=== PATIENT | female | born 1965 | race Two or more races ===

== ENCOUNTER 2019-12-17 17:26 | Outpatient (REF) | payer OTHER, SELFPAY ==
--- NOTE | 2019-12-17 17:29 | MM_ITS ---
EXAMINATION: MM SCREENING DIGITAL BREAST TOMOSYNTHESIS, BILATERAL CLINICAL INFORMATION: Screening. Asymptomatic. The lifetime risk of breast cancer based on the Tyrer-Cuzick Model is 7%. COMPARISON: Mammography: 06/23/2018, 03/28/2017 TECHNIQUE: Digital breast tomosynthesis is performed in both the craniocaudal and mediolateral oblique views along with computer-aided detection (CAD). Synthesized 2D images are generated from the tomosynthesis. FINDINGS: There are scattered areas of fibroglandular density (ACR BI-RADS breast composition Category b). There are no significant masses, abnormal calcifications, or other abnormalities. Parenchymal pattern is similar to prior studies. Skin contours are smooth. MM/MM tomosynthesis screening BI IMPRESSION: No mammographic evidence of malignancy. ASSESSMENT: BI-RADS 1: Negative RECOMMENDATION: Routine annual mammography screening. This patient's information was entered into a reminder system with a target due date for their next mammogram.
== END 2019-12-17 17:27 | disposition home or self-care (01) ==
LOC: HO.MAMMO 17:26
PROVIDERS: Visit Provider Pediatrics
DX: Z12.31 Encounter for screening mammogram for malignant neoplasm of breast (principal)
CPT/HCPCS: 77063; 77067

== ENCOUNTER 2020-03-08 16:04 | Outpatient (REF) | payer OTHER, SELFPAY | END 2020-03-08 16:05 | disposition home or self-care (01) | LOC: HO.LAB 16:04 | PROVIDERS: PCP Student in an Organized Health Care Education/Training Program; Visit Provider Internal Medicine | DX: Z20.822 Contact with and (suspected) exposure to COVID-19 (principal) | CPT/HCPCS: 36415; C9803; U0003 ==

== ENCOUNTER 2021-01-31 11:25 | Outpatient (REF) | payer OTHER, SELFPAY | END 2021-01-31 11:26 | disposition home or self-care (01) | LOC: HO.LAB 11:25 | PROVIDERS: PCP Pediatrics; Visit Provider Internal Medicine | DX: Z20.822 Contact with and (suspected) exposure to COVID-19 (principal) | CPT/HCPCS: C9803; U0003; U0005 ==

== ENCOUNTER 2021-03-07 16:07 | Outpatient (REF) | payer OTHER, SELFPAY ==
--- NOTE | ~2021-03-07 | MM_ITS ---
EXAMINATION: MM SCREENING DIGITAL BREAST TOMOSYNTHESIS, BILATERAL CLINICAL INFORMATION: Screening. Asymptomatic. The lifetime risk of breast cancer based on the Tyrer-Cuzick Model is 7%. COMPARISON: Mammography: 12/17/2019, 06/23/2018, 03/28/2017 TECHNIQUE: Digital breast tomosynthesis is performed in both the craniocaudal and mediolateral oblique views along with computer-aided detection (CAD). Synthesized 2D images are generated from the tomosynthesis. Additional bilateral MLO views are provided. FINDINGS: There are scattered areas of fibroglandular density (ACR BI-RADS breast composition Category b). There are no significant masses, abnormal calcifications, or other abnormalities. Parenchymal pattern is similar to prior studies. There is no developing density or architectural abnormality. The axilla and skin contours are unremarkable. No significant changes. MM/MM tomosynthesis screening BI IMPRESSION: No mammographic evidence of malignancy. ASSESSMENT: BI-RADS 1: Negative RECOMMENDATION: Routine annual mammography screening. This patient's information was entered into a reminder system with a target due date for their next mammogram.
== END 2021-03-07 16:08 | disposition home or self-care (01) ==
LOC: HO.MAMMO 16:07
PROVIDERS: Visit Provider Student in an Organized Health Care Education/Training Program
DX: Z12.31 Encounter for screening mammogram for malignant neoplasm of breast (principal)
CPT/HCPCS: 77063; 77067

== ENCOUNTER 2021-04-12 13:55 | Outpatient (REF) | payer OTHER, SELFPAY ==
--- NOTE | ~2021-04-12 | US_ITS ---
EXAMINATION: US PELVIS CLINICAL INFORMATION: Postmenopausal bleeding. COMPARISON: 06/12/2014 pelvic ultrasound TECHNIQUE: Ultrasound of the pelvis is performed using both transabdominal and transvaginal transducers along with Doppler. Transvaginal imaging is performed due to inadequate visualization transabdominally. FINDINGS: Uterus: The uterus is anteverted and measures 8.7 x 2.8 x 4.5 cm. Nabothian cysts are present in the cervix. The double wall endometrial thickness is 0.5 mm. The uterus is smooth in contour and has normal myometrial echogenicity. There are several small subserosal and intramural uterine myomas, a 1.2 cm subserosal myoma in the left uterus, a 1.6 cm subserosal myoma in the mid posterior uterus, a 1.6 cm subserosal myoma in the anterior right body uterus and a 1.4 cm intramural myoma in the right body of the uterus which previously measured 1.7 cm. Adnexa: Both ovaries are visualized and are unremarkable in appearance. There is no pelvic ascites or fluid collection. Right ovary measures 2.2 x 1.3 x 1.8 cm. No adnexal mass. Left ovary measures 1.7 x 1.2 x 1.2 cm. No adnexal mass. US/US pelvic and transvaginal IMPRESSION: Endometrium measures 0.5 cm in thickness. Several small subserosal and intramural uterine myomas measuring up to 1.7 cm.
== END 2021-04-12 13:56 | disposition home or self-care (01) ==
LOC: HO.US 13:55
PROVIDERS: PCP Student in an Organized Health Care Education/Training Program; Visit Provider Student in an Organized Health Care Education/Training Program
DX: N95.0 Postmenopausal bleeding (principal)
CPT/HCPCS: 76830; 76856

== ENCOUNTER 2021-05-18 15:25 | Outpatient (REF) | payer OTHER, SELFPAY ==
[2021-05-20 17:17] LABS: HPV mRNA E6/E7 rflx Not Detected (Not Detected)
== END 2021-05-18 15:26 | disposition home or self-care (01) ==
LOC: HO.LAB 15:25
PROVIDERS: Visit Provider Obstetrics & Gynecology
DX: N95.0 Postmenopausal bleeding (principal); D21.9 Benign neoplasm of connective and other soft tissue, unspecified; Z11.51 Encounter for screening for human papillomavirus (HPV)
CPT/HCPCS: 87624; 88142

== ENCOUNTER 2022-01-29 12:34 | Emergency (ER) | payer OTHER, SELFPAY ==
[2022-01-29 14:23] VITALS: BP 153/88; PULSE 85; RESP 16; TEMP 36.6; O2SAT 99; BMI 44.2
--- NOTE | 2022-01-29 14:25 | ED.GENADULT ---
HPI - General Adult General Chief complaint: General Medical <Melissa Stevenson MD - Last Filed: 01/29/22 14:27> Stated complaint: pain all over body <Melissa Stevenson MD - Last Filed: 01/29/22 14:27> Time Seen by Provider: 01/29/22 16:24 <Melissa Stevenson MD - Last Filed: 01/29/22 14:27> Source: patient <ASPEN Fernandes - Last Filed: 01/30/22 01:08> Mode of arrival: ambulatory <ASPEN Fernandes - Last Filed: 01/30/22 01:08> History of Present Illness HPI narrative: 56-year-old female with no significant past medical history presenting to the ED complaining of diffuse joint/body pain x1.5 weeks. Reports pain moves around, denies known injury/trauma or fall. Reports joints intermittently inflamed. Denies fever, chills, erythema, CP/SOB, abdominal pain, nausea/vomiting, weakness <ASPEN Fernandes - Last Filed: 01/30/22 01:08> Onset (ago): week(s) <ASPEN Fernandes - Last Filed: 01/30/22 01:08> Related Data Home medications: Previous Rx's Medication Instructions Recorded acetaminophen 500 mg tablet 500 mg PO Q6H PRN fever or pain 01/29/22 (Tylenol Extra Strength) #14 tabs ketorolac 10 mg tablet 10 mg PO TID PRN pain 5 days #15 01/29/22 tabs lidocaine 5 % topical patch 1 patch topical DAILY PRN pain #30 01/29/22 (Lidoderm) ea <Melissa Stevenson MD - Last Filed: 01/29/22 14:27> Allergies/adverse reactions: Allergies Allergy/AdvReac Type Severity Reaction Status Date / Time No Known Allergies Allergy Verified 05/18/21 15:44 [No Known Allergies*] none Allergy Unknown unk Uncoded 05/18/21 15:44 <Melissa Stevenson MD - Last Filed: 01/29/22 14:27> Review of Systems Review of Systems: Constitutional: No Fever, No Chills, No Fatigue, No Malaise ENT/Mouth: No Ear Pain, No Nasal Congestion, No sore throat, No Rhinorrhea, No Swallowing Difficulty Eyes: No Eye Pain, No Swelling, No Vision Changes Cardiovascular: No Chest Pain, No SOB, No Palpitations Respiratory: No Cough, No Sputum, No Dyspnea Gastrointestinal: No Nausea, No Vomiting, No Diarrhea, No Constipation, No Abdominal pain Genitourinary: No irregular bleeding, No Dysuria, No Urinary Frequency, No Hematuria Musculoskeletal: + joint pain, + Myalgias, No Joint Swelling Skin: No Skin Lesions, No rash Neuro: No Weakness, No Numbness, No Dizziness, No Headache <ASPEN Fernandes - Last Filed: 01/30/22 01:08> Yes all other systems are reviewed and are negative <ASPEN Fernandes - Last Filed: 01/30/22 01:08> Constitutional: Constitutional: Reports as per HPI <ASPEN Fernandes - Last Filed: 01/30/22 01:08> [facility] Past Medical History Attestation statement: The following information was validated with the patient. <ASPEN Fernandes - Last Filed: 01/30/22 01:08> Surgical History: Surgical History History of <Melissa Stevenson MD - Last Filed: 01/29/22 14:27> Family History Family History: Family History Maternal Aunt Breast CA <Melissa Stevenson MD - Last Filed: 01/29/22 14:27> Social History Social History: Social History Patient Tobacco Use Status: Never used Tobacco Advance Directives: No Advance Directives Information Provided: No <Melissa Stevenson MD - Last Filed: 01/29/22 14:27> Physical Exam ED Vital Signs: Vital Signs - 24 hr 01/29/22 14:23 Temperature 97.8 F Pulse Rate 85 Respiratory Rate 16 Blood Pressure 153/88 H Pulse Oximetry 99 Oxygen Delivery Method Room Air BMI result Body Mass Index 44.2 <Melissa Stevenson MD - Last Filed: 01/29/22 14:27> Vital Signs - 24 hr 01/29/22 14:23 Temperature 97.8 F Pulse Rate 85 Respiratory Rate 16 Blood Pressure 153/88 H Pulse Oximetry 99 Oxygen Delivery Method Room Air BMI result Body Mass Index 44.2 <ASPEN Fernandes - Last Filed: 01/30/22 01:08> Const General: cooperative, healthy appearing, comfortable, no acute distress, alert and awake <ASPEN Fernandes Last Filed: 01/30/22 01:08> Orientation/consciousness: patient oriented x3 <ASPEN Fernandes - Last Filed: 01/30/22 01:08> Limitations: no limitations <ASPEN Fernandes - Last Filed: 01/30/22 01:08> HENMT Head: Yes normal to inspection and Yes atraumatic <ASPEN Fernandes - Last Filed: 01/30/22 01:08> Ears: hearing grossly normal bilaterally <ASPEN Fernandes - Last Filed: 01/30/22 01:08> General nose exam: Normal external nose present <ASPEN Fernandes - Last Filed: 01/30/22 01:08> Face and sinus: Yes normal facial exam <ASPEN Fernandes - Last Filed: 01/30/22 01:08> Eyes General: appearance normal, both eyes and all related structures <ASPEN Fernandes - Last Filed: 01/30/22 01:08> EOM: EOMs intact bilaterally <ASPEN Fernandes - Last Filed: 01/30/22 01:08> Neck Neck: Yes normal visual inspection, Yes no meningeal signs and Yes supple <ASPEN Fernandes - Last Filed: 01/30/22 01:08> Resp Effort & Inspection: normal respiratory effort and no respiratory distress <ASPEN Fernandes - Last Filed: 01/30/22 01:08> Auscultation: clear to auscultation bilaterally, no crackles, no rales, no rhonchi and no wheezes <ASPEN Fernandes - Last Filed: 01/30/22 01:08> Cardio Rate: regular rate <ASPEN Fernandes - Last Filed: 01/30/22 01:08> Heart sounds: S1 normal heart sound present and S2 normal heart sound present <ASPEN Fernandes - Last Filed: 01/30/22 01:08> Skin Rashes: no rashes <ASPEN Fernandes Last Filed: 01/30/22 01:08> Wounds: no wounds <ASPEN Fernandes - Last Filed: 01/30/22 01:08> Neuro General: patient oriented x3, gait normal, tone normal, moves all extremities, no meningeal signs and no focal motor deficits <ASPEN Fernandes - Last Filed: 01/30/22 01:08> Gait exam (Neuro): Normal gait present <ASPEN Fernandes Last Filed: 01/30/22 01:08> Extrem Other: +diffuse joint ttp, no appreciable deformity/erythema. No warmth. Neurovascularly intact distally. ROM intact <ASPEN Fernandes - Last Filed: 01/30/22 01:08> General: Yes normal to inspection and Yes capillary refill normal <ASPEN Fernandes Last Filed: 01/30/22 01:08> Course Course Course Narrative: 56F p/w multiple joint pains for several days without fevers, chills or GI/ symptoms. No improvement with OTC analgesics. VS reviewed GEN: NAD PULM: CTAB, SpO2 CVS: RRR, no murmurs Labs, SARS <Melissa Stevenson MD - Last Filed: 01/29/22 14:27> 56F p/w multiple joint pains for several days without fevers, chills or GI/ symptoms. No improvement with OTC analgesics. VS reviewed GEN: NAD PULM: CTAB, SpO2 CVS: RRR, no murmurs Labs, SARS -183--no leukocytosis. ESR/CRP minimally elevated. COVID-19/influenza negative BARBI titer and Lyme titer currently pending. Will discharge patient home with close PCP/rheumatology follow-up Results discussed with patient including worrisome signs and symptoms and strict return precautions, and when to return to the emergency department. They verbalized understanding and feel safe for discharge at this time. <ASPEN Fernandes Last Filed: 01/30/22 01:08> Medications Administered Discontinued Medications Generic Name Dose Route Start Last Admin Trade Name Freq PRN Reason Stop Dose Admin Ketorolac Tromethamine 30 mg 01/29/22 16:30 01/29/22 19:42 Ketorolac Tromethamine 30 Mg/Ml Vial IM 01/29/22 16:31 30 mg ONCE ONE Administration <Melissa Stevenson MD - Last Filed: 01/29/22 14:27> Medications Administered Discontinued Medications Generic Name Dose Route Start Last Admin Trade Name Arabella PRN Reason Stop Dose Admin Ketorolac Tromethamine 30 mg 01/29/22 16:30 01/29/22 19:42 Ketorolac Tromethamine 30 Mg/Ml Vial IM 01/29/22 16:31 30 mg ONCE ONE Administration <ASPEN Fernandes - Last Filed: 01/30/22 01:08> Medical Decision Making Medical Decision Making MDM Narrative: 56-year-old female with no significant past medical history presenting to the ED complaining of diffuse joint/body pain x1.5 weeks. On exam vital signs stable, NAD, nontoxic appearing, physical exam as above with diffuse joint tenderness noted, no appreciable deformity or infection. Concern for viral illness vs arthritis vs rheumatologic etiology including lupus vs ?Tick borne illness. Low suspicion for septic joint/arthritis, no evidence of cellulitis Plan: Labs, ESR/CRP, Lyme titer, BARBI titer <ASPEN Fernandes - Last Filed: 01/30/22 01:08> Differential Diagnoses: Differential diagnosis (as above) Differential Diagnosis: The differential diagnosis associated with the patient?s presentation includes: <ASPEN Fernandes - Last Filed: 01/30/22 01:08> Independent historian (e.g., spouse, EMS, friend): Independent historian (e.g., spouse, EMS, friend) <ASPEN Fernandes - Last Filed: 01/30/22 01:08> Non-ED record review: Review of External (Non-ED) Record External record reviewed:: Office record and Prior outpatient labs <ASPEN Fernandes - Last Filed: 01/30/22 01:08> Tests considered but not performed: Tests Considered But Not Performed The following testing was considered but ultimately not selected after discussion with patient/family. <ASPEN Fernandes Last Filed: 01/30/22 01:08> Prescription medication was considered but ultimately not given after discussion with patient/family. (e.g., pain medication, antiviral, antibiotic): Prescriptions considered but not given <ASPEN Fernandes - Last Filed: 01/30/22 01:08> Chronic conditions affecting care (e.g., diabetes, HTN): Chronic conditions affecting care (e.g., diabetes, HTN) <ASPEN Fernandes - Last Filed: 01/30/22 01:08> Care significantly affected by Social Determinants of Health (e.g., housing and economic circumstances, unemployment): Care affected by Social Determinants of Health <ASPEN Fernandes - Last Filed: 01/30/22 01:08> Discharge Plan Discharge Clinical Impression: Myalgia <Melissa Stevenson MD - Last Filed: 01/29/22 14:27> Patient Disposition: Home, Self-Care <Melissa Stevenson MD - Last Filed: 01/29/22 14:27> Instructions: Musculoskeletal Pain (ED) <Melissa Stevenson MD - Last Filed: 01/29/22 14:27> Additional Instructions: Your blood work was reassuring today. You tested negative for COVID-19 and the flu and RSV. We tested you for rheumatologic studies and Lyme disease these are currently pending, we will call you with positive results only. Please have close follow-up with her primary care doctor and rheumatology. Toradol as an anti-inflammatory/pain medication, take with food. Do not take both Toradol and Motrin/ibuprofen at home they are similar medications In addition take Tylenol. If symptoms persist or worsen, you fever, areas look infected return to the ED <Melissa Stevenson MD - Last Filed: 01/29/22 14:27> Prescriptions: New acetaminophen [Tylenol Extra Strength] 500 mg tablet 500 mg PO Q6H PRN (Reason: fever or pain) Qty: 14 0RF ketorolac 10 mg tablet 10 mg PO TID PRN (Reason: pain) 5 Days Qty: 15 0RF lidocaine [Lidoderm] 5 % adhesive patch,medicated 1 patch topical DAILY MDD remove after 12 hours PRN (Reason: pain) Qty: 30 0RF Rx Instructions: leave on most painful area for up to 12 hrs <Melissa Stevenson MD - Last Filed: 01/29/22 14:27> Referrals: [facility] [place] Rheumatology Service [Provider Group] Lissette Marte MD [Primary Care Provider] - <Melissa Stevenson MD - Last Filed: 01/29/22 14:27> Interventions: ED Discharge Assessment Last Done: 01/29/22 19:46 <Melissa Stevenson MD - Last Filed: 01/29/22 14:27> Discharge Date/Time: 01/29/22 19:46 <Melissa Stevenson MD - Last Filed: 01/29/22 14:27>
[2022-01-29 17:31] LABS: MANUAL DIFF FLAG NO
[2022-01-29 17:52] LABS: Alanine Aminotransferase 15 U/L (0-31); Albumin Level 3.6 g/dL (3.5-5.0); Alkaline Phosphatase 100 U/L (39-117); Anion Gap 11 (12-20); Aspartate Amino Transferase 14 U/L (5-31); Bilirubin Total 0.3 mg/dL (0.0-1.0); Blood Urea Nitrogen 11 mg/dL (9-16); C Reactive Protein 0.68 mg/dL (< or = 0.50); Calcium 9.2 mg/dL (8.4-10.2); Carbon Dioxide 28 mmol/L (22-29); Chloride 108 mmol/L (96-108); Creatinine Clr Calc Pharmacy 104.1; Estimated Glomerular Filt Rate > 60; Glucose Random 102 mg/dL (60-115); Potassium 4.2 mmol/L (3.3-5.1); Sodium 143 mmol/L (135-145); Total Protein 6.6 g/dL (6.5-8.0)
[2022-01-29 17:57] LABS: Basophils Percent Auto 0.4 % (0-2); Eosinophils Absolute Auto 0.2 X10*3/uL (0.0-0.4); Eosinophils Percent Auto 2.6 % (0-4); Hematocrit 39.7 % (37.0-47.0); Hemoglobin 12.2 g/dl (12.0-16.0); Imm Gran Abs Auto 0.04 X10*3/uL (0.00-0.03); Imm Gran Pct Auto 0.5 % (0.0-0.4); Lymphocytes Absolute Auto 2.2 X10*3/uL (1.2-4.9); Lymphocytes Percent Auto 27.2 % (20-40); Mean Corpuscular HGB Conc 30.7 g/dl (31.0-35.0); Mean Corpuscular Hemoglobin 21.8 pg (27.0-33.0); Mean Platelet Volume 9.6 fL (9.4-12.3); Monocytes Absolute Auto 0.4 X10*3/uL (0.1-1.2); Monocytes Percent Auto 4.9 % (2-11); Neutrophils Absolute Auto 5.1 x10*3/uL (2.0-8.3); Neutrophils Percent Auto 64.4 % (45-73); Platelet Count 348 X10*3/uL (160-400); Red Blood Count 5.59 X10*6/uL (4.20-5.50); Red Cell Distribution Width 15.6 % (11.0-16.0)
[2022-01-29 18:13] LABS: Erythrocyte Sedimentation Rate 23 MM/HR (0-20)
[2022-01-29 18:19] LABS: Influenza A PCR NEGATIVE (Negative); Influenza B PCR NEGATIVE (Negative); Resp Syncy Virus RNA Qual PCR NEGATIVE (Negative); SARS COV2 PCR INHOUSE NEGATIVE (Negative)
[2022-01-29] MEDS: Ketorolac Tromethamine 30 MG/ML VIAL IM (19:42)
[2022-01-31 09:43] LABS: Lyme Abs Screen <0.90 index
[2022-02-01 15:43] LABS: Anti Nuclear Antibody Screen NEGATIVE (NEGATIVE)
== END 2022-01-29 19:46 | disposition home or self-care (01) ==
PROVIDERS: Physician Assistant; Student in an Organized Health Care Education/Training Program; Emergency Provider Emergency Medicine; PCP Student in an Organized Health Care Education/Training Program
DX: M79.10 Myalgia, unspecified site (principal); Z20.822 Contact with and (suspected) exposure to COVID-19; Z79.899 Other long term (current) drug therapy
CPT/HCPCS: 0241U; 36415; 80053; 85025; 85652; 86038; 86039; 86140; 86617; 86618; 96372; 99283; 99284; J1885

== ENCOUNTER 2022-02-23 13:54 | Outpatient (REF) | payer OTHER, SELFPAY ==
--- NOTE | ~2022-02-23 | XR_ITS ---
EXAMINATION: XR HAND/WRIST, RIGHT XR HAND/WRIST, LEFT CLINICAL INFORMATION: Osteoarthritis. COMPARISON: None TECHNIQUE: PA, lateral, oblique, and scaphoid views of the right and left hands and wrists. FINDINGS: RIGHT HAND AND WRIST: No fracture or dislocation. Normal carpal alignment. No significant joint space narrowing or marginal osteophytes. No osseous erosion. No periarticular osteopenia. No abnormal soft tissue calcification. LEFT HAND AND WRIST: No fracture or dislocation. Normal carpal alignment. No significant joint space narrowing or marginal osteophytes. No osseous erosion. No periarticular osteopenia. No abnormal soft tissue calcification. XR/XR hand wrist RT IMPRESSION: Unremarkable examination.
--- NOTE | ~2022-02-23 | XR_ITS ---
EXAMINATION: XR KNEE STANDING, BILATERAL XR KNEE, RIGHT XR KNEE, LEFT CLINICAL INFORMATION: Osteoarthritis. COMPARISON: Bilateral knee radiographs dated 03/01/2017 and 01/24/2017. TECHNIQUE: AP standing view of the bilateral knees as well as tunnel, lateral, and sunrise views of the right and left knee. FINDINGS: Right Knee: Mild medial compartment joint space narrowing. Lateral patellofemoral compartment joint space narrowing. Tiny tricompartmental marginal osteophytes. Findings are slightly progressed when compared to the prior radiograph. No acute fracture or dislocation. No concerning lytic or blastic osseous lesion. No abnormal soft tissue calcification. No significant joint effusion. Left knee: Mild lateral patellofemoral compartment joint space. Small patellofemoral and tiny medial compartment marginal osteophytes. No acute fracture or dislocation. No concerning lytic or blastic osseous lesion. No abnormal soft tissue calcification. No significant joint effusion. XR/XR knee standing BI IMPRESSION: RIGHT KNEE: Mild tricompartmental osteoarthritis, slightly progressed when compared to the prior radiographs. LEFT KNEE: Mild lateral and patellofemoral compartment osteoarthritis, slightly progressed when compared to the prior radiographs.
--- NOTE | ~2022-02-23 | XR_ITS ---
EXAMINATION: XR KNEE STANDING, BILATERAL XR KNEE, RIGHT XR KNEE, LEFT CLINICAL INFORMATION: Osteoarthritis. COMPARISON: Bilateral knee radiographs dated 03/01/2017 and 01/24/2017. TECHNIQUE: AP standing view of the bilateral knees as well as tunnel, lateral, and sunrise views of the right and left knee. FINDINGS: Right Knee: Mild medial compartment joint space narrowing. Lateral patellofemoral compartment joint space narrowing. Tiny tricompartmental marginal osteophytes. Findings are slightly progressed when compared to the prior radiograph. No acute fracture or dislocation. No concerning lytic or blastic osseous lesion. No abnormal soft tissue calcification. No significant joint effusion. Left knee: Mild lateral patellofemoral compartment joint space. Small patellofemoral and tiny medial compartment marginal osteophytes. No acute fracture or dislocation. No concerning lytic or blastic osseous lesion. No abnormal soft tissue calcification. No significant joint effusion. XR/XR knee RT 3V IMPRESSION: RIGHT KNEE: Mild tricompartmental osteoarthritis, slightly progressed when compared to the prior radiographs. LEFT KNEE: Mild lateral and patellofemoral compartment osteoarthritis, slightly progressed when compared to the prior radiographs.
--- NOTE | ~2022-02-23 | XR_ITS ---
EXAMINATION: XR HAND/WRIST, RIGHT XR HAND/WRIST, LEFT CLINICAL INFORMATION: Osteoarthritis. COMPARISON: None TECHNIQUE: PA, lateral, oblique, and scaphoid views of the right and left hands and wrists. FINDINGS: RIGHT HAND AND WRIST: No fracture or dislocation. Normal carpal alignment. No significant joint space narrowing or marginal osteophytes. No osseous erosion. No periarticular osteopenia. No abnormal soft tissue calcification. LEFT HAND AND WRIST: No fracture or dislocation. Normal carpal alignment. No significant joint space narrowing or marginal osteophytes. No osseous erosion. No periarticular osteopenia. No abnormal soft tissue calcification. XR/XR hand wrist LT IMPRESSION: Unremarkable examination.
--- NOTE | ~2022-02-23 | XR_ITS ---
EXAMINATION: XR KNEE STANDING, BILATERAL XR KNEE, RIGHT XR KNEE, LEFT CLINICAL INFORMATION: Osteoarthritis. COMPARISON: Bilateral knee radiographs dated 03/01/2017 and 01/24/2017. TECHNIQUE: AP standing view of the bilateral knees as well as tunnel, lateral, and sunrise views of the right and left knee. FINDINGS: Right Knee: Mild medial compartment joint space narrowing. Lateral patellofemoral compartment joint space narrowing. Tiny tricompartmental marginal osteophytes. Findings are slightly progressed when compared to the prior radiograph. No acute fracture or dislocation. No concerning lytic or blastic osseous lesion. No abnormal soft tissue calcification. No significant joint effusion. Left knee: Mild lateral patellofemoral compartment joint space. Small patellofemoral and tiny medial compartment marginal osteophytes. No acute fracture or dislocation. No concerning lytic or blastic osseous lesion. No abnormal soft tissue calcification. No significant joint effusion. XR/XR knee LT 3V IMPRESSION: RIGHT KNEE: Mild tricompartmental osteoarthritis, slightly progressed when compared to the prior radiographs. LEFT KNEE: Mild lateral and patellofemoral compartment osteoarthritis, slightly progressed when compared to the prior radiographs.
== END 2022-02-23 13:55 | disposition home or self-care (01) ==
LOC: HO.LAB 13:54
PROVIDERS: PCP Student in an Organized Health Care Education/Training Program; Visit Provider Student in an Organized Health Care Education/Training Program
DX: M17.0 Bilateral primary osteoarthritis of knee (principal); M25.431 Effusion, right wrist; M19.032 Primary osteoarthritis, left wrist; M19.031 Primary osteoarthritis, right wrist; M19.042 Primary osteoarthritis, left hand; M19.041 Primary osteoarthritis, right hand
CPT/HCPCS: 73110; 73130; 73562; 73565

== ENCOUNTER 2022-02-27 16:15 | Outpatient (REF) | payer OTHER, SELFPAY ==
[2022-02-27 16:46] LABS: MANUAL DIFF FLAG NO
[2022-02-27 17:01] LABS: Estimated Average Glucose 97 mg/dL
[2022-02-27 17:08] LABS: Basophils Percent Auto 0.5 % (0-2); Eosinophils Absolute Auto 0.1 X10*3/uL (0.0-0.4); Eosinophils Percent Auto 1.3 % (0-4); Hematocrit 40.1 % (37.0-47.0); Hemoglobin 12.6 g/dl (12.0-16.0); Imm Gran Abs Auto 0.08 X10*3/uL (0.00-0.03); Imm Gran Pct Auto 1.3 % (0.0-0.4); Lymphocytes Absolute Auto 2.1 X10*3/uL (1.2-4.9); Mean Corpuscular HGB Conc 31.4 g/dl (31.0-35.0); Mean Corpuscular Hemoglobin 22.3 pg (27.0-33.0); Mean Corpuscular Volume 71.1 fL (80.0-98.0); Mean Platelet Volume 9.8 fL (9.4-12.3); Monocytes Absolute Auto 0.3 X10*3/uL (0.1-1.2); Monocytes Percent Auto 4.8 % (2-11); Neutrophils Absolute Auto 3.5 x10*3/uL (2.0-8.3); Neutrophils Percent Auto 57.1 % (45-73); Platelet Count 355 X10*3/uL (160-400); Red Blood Count 5.64 X10*6/uL (4.20-5.50); White Blood Count 6.1 X10*3/uL (4.8-10.8)
[2022-02-27 17:13] LABS: Alanine Aminotransferase 14 U/L (0-31); Albumin Level 3.9 g/dL (3.5-5.0); Alkaline Phosphatase 102 U/L (39-117); Anion Gap 11 (12-20); Aspartate Amino Transferase 18 U/L (5-31); Bilirubin Total 0.3 mg/dL (0.0-1.0); Blood Urea Nitrogen 13 mg/dL (9-16); C Reactive Protein 0.26 mg/dL (< or = 0.50); Calcium 9.5 mg/dL (8.4-10.2); Carbon Dioxide 24 mmol/L (22-29); Chloride 109 mmol/L (96-108); Estimated Glomerular Filt Rate > 60; Glucose Random 85 mg/dL (60-115); Potassium 4.3 mmol/L (3.3-5.1); Rheumatoid Factor 46.6 IU/mL (<15.0); Sodium 140 mmol/L (135-145); Total Protein 7.1 g/dL (6.5-8.0); Uric Acid 4.1 mg/dL (2.4-5.7)
[2022-02-27 17:31] LABS: Erythrocyte Sedimentation Rate 16 MM/HR (0-20)
[2022-02-27 21:00] LABS: Appearance Urine Clear; Color Urine Yellow; Glucose Urine UA Negative (Negative); Leukocyte Esterase Urine Trace (Negative); Nitrite Urine Negative (Negative); Specific Gravity - Urine 1.015 (1.005-1.025); UMIC TRIGGER UA YES; Urine Blood Negative (Negative); Urine Ketones Negative (Negative); Urine Protein Negative (Neg-Trace)
[2022-02-27 21:03] LABS: Bacteria Urine Trace (None Seen); Hyaline Casts Urine 0-2 /LPF (0-2); RBC Urine 0-2 /HPF (0-2); WBC Urine 0-5 /HPF (0-5)
[2022-02-27 21:29] LABS: Creatinine Urine 51.95 mg/dL; Total Protein Urine Random < 7 mg/dL (<12)
[2022-02-28 04:31] LABS: HBS Num1 0.32 mIU/mL (0-7.99); HBc Num1 0.07 S/CO (0.00-0.79); HBsAGNum1 0.32 S/CO (0.00-0.99); HIV AB/AG Nonreactive (Nonreactive); HIV Num 1 0.05 S/CO (0.00-0.99); Hepatitis A Antibody IgM 0.15 Index (0-0.79); Hepatitis B Core Antibody Nonreactive (Nonreactive); Hepatitis B Surface Antigen Negative (Negative); ~Hepatitis A Antibody IgM Nonreactive (Nonreactive); ~Hepatitis B Surface Antibody NONREACTIVE (Nonreactive); ~Hepatitis C Antibody Nonreactive (Nonreactive)
[2022-03-01 19:48] LABS: Complement C3 140 mg/dL (83-193)
[2022-03-02 13:44] LABS: Anti DNA DS Antibody 2 IU/mL; Antibody to SS-A Antigen <1.0 NEG AI (<1.0 NEG); Antibody to SS-B Antigen <1.0 NEG AI (<1.0 NEG); Myeloperoxidase Antibody <1.0 AI; Proteinase 3 PR3 Antibodies <1.0 AI; SM/Ribonucleoprotein Ab <1.0 NEG AI (<1.0 NEG); Smith Protein <1.0 NEG AI (<1.0 NEG)
[2022-03-02 14:03] LABS: IgA 332 mg/dL (47-310); IgG 1549 mg/dL (600-1640); IgM 85 mg/dL (50-300)
[2022-03-02 15:58] LABS: Cyclic Citrullinated Peptide >250 UNITS
[2022-03-02 21:14] LABS: Prot Elec - Albumin 3.6 g/dL (3.8-4.8); Prot Elec - Alpha1 0.3 g/dL (0.2-0.3); Prot Elec - Alpha2 0.9 g/dL (0.5-0.9); Prot Elec - Beta 1 0.6 g/dL (0.4-0.6); Prot Elec - Beta 2 0.4 g/dL (0.2-0.5); Prot Elec - Gamma 1.3 g/dL (0.8-1.7); Prot Elec - Total Protein 7.2 g/dL (6.1-8.1)
[2022-03-03 19:30] LABS: Strep DNASE B Antibody 201 U/mL (<301)
[2022-03-05 05:38] LABS: Angiotensin Converting Enzyme 56 U/L (9-67)
[2022-03-05 06:49] LABS: TS Negative Control Passed; TS Panel A 0; TS Panel B 1; TS Positive Control Passed; TSpotTB Negative (Negative)
[2022-03-06 21:24] LABS: HLA B27 Negative (Negative)
== END 2022-02-27 16:16 | disposition home or self-care (01) ==
LOC: HO.LAB 16:15
PROVIDERS: PCP Student in an Organized Health Care Education/Training Program; Visit Provider Student in an Organized Health Care Education/Training Program
DX: Z11.59 Encounter for screening for other viral diseases (principal); Z11.7 Encounter for testing for latent tuberculosis infection; Z13.1 Encounter for screening for diabetes mellitus; Z11.4 Encounter for screening for human immunodeficiency virus [HIV]; M00.20 Other streptococcal arthritis, unspecified joint; N39.0 Urinary tract infection, site not specified; M79.10 Myalgia, unspecified site; M25.461 Effusion, right knee; M54.50 Low back pain, unspecified
CPT/HCPCS: 36415; 80053; 81001; 82164; 82550; 82784; 83036; 84156; 84165; 84550; 85025; 85652; 86021; 86140; 86160; 86200; 86215; 86225; 86235; 86334; 86431; 86481; 86704; 86706; 86709; 86803; 86812; 87086; 87340; 87389

== ENCOUNTER → 2022-04-05 14:29 | Outpatient (BNVA) | payer OTHER, SELFPAY | PROVIDERS: PCP Student in an Organized Health Care Education/Training Program; Visit Provider Student in an Organized Health Care Education/Training Program | DX: Z13.89 Encounter for screening for other disorder (principal) ==

== ENCOUNTER 2022-04-26 17:00 | Outpatient (REF) | payer OTHER, SELFPAY ==
[2022-04-26 18:42] LABS: MANUAL DIFF FLAG NO
[2022-04-26 18:46] LABS: Basophils Percent Auto 0.4 % (0-2); Eosinophils Absolute Auto 0.1 X10*3/uL (0.0-0.4); Eosinophils Percent Auto 0.7 % (0-4); Hematocrit 40.6 % (37.0-47.0); Hemoglobin 12.4 g/dl (12.0-16.0); Imm Gran Abs Auto 0.03 X10*3/uL (0.00-0.03); Imm Gran Pct Auto 0.4 % (0.0-0.4); Lymphocytes Absolute Auto 2.7 X10*3/uL (1.2-4.9); Lymphocytes Percent Auto 33.5 % (20-40); Mean Corpuscular HGB Conc 30.5 g/dl (31.0-35.0); Mean Corpuscular Hemoglobin 21.9 pg (27.0-33.0); Mean Corpuscular Volume 71.9 fL (80.0-98.0); Mean Platelet Volume 10.7 fL (9.4-12.3); Monocytes Absolute Auto 0.6 X10*3/uL (0.1-1.2); Monocytes Percent Auto 6.8 % (2-11); Neutrophils Absolute Auto 4.7 x10*3/uL (2.0-8.3); Neutrophils Percent Auto 58.2 % (45-73); Platelet Count 352 X10*3/uL (160-400); Red Blood Count 5.65 X10*6/uL (4.20-5.50); Red Cell Distribution Width 18.7 % (11.0-16.0); White Blood Count 8.1 X10*3/uL (4.8-10.8)
[2022-04-26 18:54] LABS: Alanine Aminotransferase 14 U/L (0-31); Alkaline Phosphatase 115 U/L (39-117); Anion Gap 15 (12-20); Aspartate Amino Transferase 18 U/L (5-31); Bilirubin Total 0.3 mg/dL (0.0-1.0); Blood Urea Nitrogen 13 mg/dL (9-16); C Reactive Protein 0.51 mg/dL (< or = 0.50); Calcium 9.3 mg/dL (8.4-10.2); Carbon Dioxide 26 mmol/L (22-29); Chloride 106 mmol/L (96-108); Estimated Glomerular Filt Rate > 60; Glucose Random 77 mg/dL (60-115); Potassium 4.3 mmol/L (3.3-5.1); Sodium 143 mmol/L (135-145); Total Protein 6.9 g/dL (6.5-8.0)
[2022-04-26 19:21] LABS: Erythrocyte Sedimentation Rate 23 MM/HR (0-20)
== END 2022-04-26 17:01 | disposition home or self-care (01) ==
LOC: HO.LAB 17:00
PROVIDERS: PCP Student in an Organized Health Care Education/Training Program; Visit Provider Student in an Organized Health Care Education/Training Program
DX: Z79.899 Other long term (current) drug therapy (principal)
CPT/HCPCS: 36415; 80053; 85025; 85652; 86140

== ENCOUNTER 2022-06-13 16:34 | Outpatient (REF) | payer OTHER, SELFPAY ==
[2022-06-13 17:29] LABS: Basophils Percent Auto 0.4 % (0-2); Imm Gran Abs Auto 0.03 X10*3/uL (0.00-0.03); Imm Gran Pct Auto 0.4 % (0.0-0.4); MANUAL DIFF FLAG SCAN; PLT CLUMP 1; SCAN SMEAR FLAG 1
[2022-06-13 17:31] LABS: Eosinophils Percent Auto 0.3 % (0-4); Hematocrit 38.8 % (37.0-47.0); Hemoglobin 12.2 g/dl (12.0-16.0); Lymphocytes Absolute Auto 2.8 X10*3/uL (1.2-4.9); Lymphocytes Percent Auto 35.1 % (20-40); Mean Corpuscular HGB Conc 31.4 g/dl (31.0-35.0); Mean Corpuscular Hemoglobin 22.7 pg (27.0-33.0); Mean Corpuscular Volume 72.3 fL (80.0-98.0); Mean Platelet Volume 10.2 fL (9.4-12.3); Monocytes Absolute Auto 0.4 X10*3/uL (0.1-1.2); Monocytes Percent Auto 4.8 % (2-11); Neutrophils Absolute Auto 4.7 x10*3/uL (2.0-8.3); Red Blood Count 5.37 X10*6/uL (4.20-5.50); Red Cell Distribution Width 17.5 % (11.0-16.0)
[2022-06-13 17:57] LABS: Erythrocyte Sedimentation Rate 12 MM/HR (0-20)
[2022-06-13 17:58] LABS: Platelet Count 243 X10*3/uL (160-400)
[2022-06-13 17:59] LABS: Alanine Aminotransferase 16 U/L (0-31); Albumin Level 3.9 g/dL (3.5-5.0); Alkaline Phosphatase 105 U/L (39-117); Anion Gap 13 (12-20); Aspartate Amino Transferase 16 U/L (5-31); Bilirubin Total 0.4 mg/dL (0.0-1.0); Blood Urea Nitrogen 13 mg/dL (9-16); C Reactive Protein 0.11 mg/dL (< or = 0.50); Calcium 9.3 mg/dL (8.4-10.2); Carbon Dioxide 25 mmol/L (22-29); Chloride 109 mmol/L (96-108); Estimated Glomerular Filt Rate > 60; Glucose Random 75 mg/dL (60-115); Sodium 143 mmol/L (135-145); Total Protein 6.4 g/dL (6.5-8.0)
[2022-06-13 18:34] LABS: SLIDE REVIEW VERIFIED
== END 2022-06-13 16:35 | disposition home or self-care (01) ==
LOC: HO.LAB 16:34
PROVIDERS: PCP Student in an Organized Health Care Education/Training Program; Visit Provider Student in an Organized Health Care Education/Training Program
DX: Z79.899 Other long term (current) drug therapy (principal)
CPT/HCPCS: 36415; 80053; 85025; 85652; 86140

== ENCOUNTER → 2022-06-22 14:49 | Outpatient (BNVA) | payer OTHER, SELFPAY | PROVIDERS: PCP Student in an Organized Health Care Education/Training Program; Visit Provider Student in an Organized Health Care Education/Training Program | DX: Z13.89 Encounter for screening for other disorder (principal) ==

== ENCOUNTER 2022-09-20 12:01 | Outpatient (REF) | payer OTHER, SELFPAY ==
[2022-09-20 12:42] LABS: MANUAL DIFF FLAG NO
[2022-09-20 13:30] LABS: Basophils Percent Auto 0.4 % (0-2); Eosinophils Absolute Auto 0.1 X10*3/uL (0.0-0.4); Eosinophils Percent Auto 0.7 % (0-4); Hematocrit 37.8 % (37.0-47.0); Hemoglobin 11.7 g/dl (12.0-16.0); Imm Gran Abs Auto 0.03 X10*3/uL (0.00-0.03); Imm Gran Pct Auto 0.4 % (0.0-0.4); Lymphocytes Percent Auto 27.9 % (20-40); Mean Corpuscular Hemoglobin 23.1 pg (27.0-33.0); Mean Corpuscular Volume 74.6 fL (80.0-98.0); Mean Platelet Volume 10.3 fL (9.4-12.3); Monocytes Absolute Auto 0.4 X10*3/uL (0.1-1.2); Neutrophils Absolute Auto 4.8 x10*3/uL (2.0-8.3); Neutrophils Percent Auto 65.6 % (45-73); Platelet Count 354 X10*3/uL (160-400); Red Blood Count 5.07 X10*6/uL (4.20-5.50); Red Cell Distribution Width 18.4 % (11.0-16.0); White Blood Count 7.3 X10*3/uL (4.8-10.8)
[2022-09-20 14:38] LABS: Alanine Aminotransferase 40 U/L (0-31); Albumin Level 3.9 g/dL (3.5-5.0); Alkaline Phosphatase 101 U/L (39-117); Anion Gap 16 (12-20); Aspartate Amino Transferase 30 U/L (5-31); Bilirubin Total 0.3 mg/dL (0.0-1.0); Blood Urea Nitrogen 9 mg/dL (9-16); C Reactive Protein 0.29 mg/dL (< or = 0.50); Calcium 9.4 mg/dL (8.4-10.2); Carbon Dioxide 20 mmol/L (22-29); Chloride 110 mmol/L (96-108); Estimated Glomerular Filt Rate > 60; Glucose Random 74 mg/dL (60-115); Sodium 142 mmol/L (135-145)
[2022-09-20 15:26] LABS: Erythrocyte Sedimentation Rate 14 MM/HR (0-20)
== END 2022-09-20 12:02 | disposition home or self-care (01) ==
LOC: HO.LAB 12:01
PROVIDERS: PCP Student in an Organized Health Care Education/Training Program; Visit Provider Student in an Organized Health Care Education/Training Program
DX: Z79.899 Other long term (current) drug therapy (principal)
CPT/HCPCS: 36415; 80053; 85025; 85652; 86140

== ENCOUNTER 2022-10-19 14:24 | Outpatient (AMB) | payer OTHER, SELFPAY ==
[2022-10-19 14:27] VITALS: BP 120/72; PULSE 98; TEMP 36.2; O2SAT 94; BMI 42.3
--- NOTE | 2022-10-19 14:27 | MHC.OFFVIS ---
Intake Vital Signs 10/19/22 14:27 Height 5 ft 3 in Weight 238 lb 15.697 oz BMI 42.3 BP 120/72 Blood Pressure Location Rt brachial Position Sitting Pulse 98 Pulse Source Pulse Oximeter Temp 97.1 F Temp Source Skin Pulse Oximetry (%) 94 Intake Visit Reasons: 4 mnts f/u for RA Intake Note: Pt seen today for RA follow up. 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 A methotrexate 8 tabs weekly folic acid daily. She states that she gets nausea and GI upset today she take methotrexate and the day after, she also gets fatigue that is significant the day after she takes methotrexate and the fatigue lingers for the rest of the week. She states that her joint pain is resolved. She was prescribed nystatin powder for fungal infection affecting her right groin a few weeks ago and it is improving Initial history: This is a 56-year-old female with a past medical history of morbid obesity presents for evaluation of multiple joint pain and swelling. The condition started 1 month ago with abrupt onset of right knee pain and swelling, the pain then shifts to another joint such as left shoulder, elbows, wrists, other knee. She would continue to have pain in the initial joint but the pain would be less severe and the severity would be in another joint. Today the most painful joints are the right knee , right right shoulder and right wrist. Pain is improved with Tylenol. Patient is unable to take NSAIDs due to history of esophagitis. Patient went to the ER and was prescribed lidocaine patches which did not help. She has a prescription for oxycodone which she previously takes due to painful menstrual periods. (? Adenomyosis) she currently takes the oxycodone for the joint pain which does take the edge off. In October patient had a dental infection, she received multiple courses of amoxicillin. She eventually had a root canal. Currently she does not have any dental symptoms. She denies any fevers, weight loss, skin rashes, Raynaud's. There is no history of DVT/PE. 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 Female Reproductive History Menstrual Age of Menarche: 12 Review of Systems Const Reports fatigue GI Reports dyspepsia and Reports nausea Musc Denies arthralgias and Denies joint swelling Skin/Breast Reports rash Endo Reports fatigue Physical Exam Vital Signs: Last Vital Signs Temp 97.1 F 10/19/22 14:27 Pulse 98 10/19/22 14:27 BP 120/72 10/19/22 14:27 Pulse Ox 94 10/19/22 14:27 BMI result Body Mass Index 42.3 Const General: cooperative, healthy appearing, comfortable and acute distress mild Nutritional Appearance: obese morbidly obese Orientation/consciousness: patient oriented x3 Limitations: no limitations HEENT Head: Yes normocephalic and Yes atraumatic Mouth: moist mucous membranes Resp Effort & Inspection: normal respiratory effort and able to speak in complete sentences Skin Other: Fungal infection right lower abdomen Neuro General: patient oriented x3 Extrem Other: No synovitis today Assessment & Plan Assessment & Plan (1) Rheumatoid arthritis: Comment: +RF+++CCP diagnosed 01/2022 Methotrexate started 03/2022 effective DC 10/17 due to transaminitis, fatigue, GI upset Code(s): M06.9 - Rheumatoid arthritis, unspecified Qualifiers: Rheumatoid arthritis location: multiple sites Rheumatoid factor presence: with rheumatoid factor Qualified Code(s): M05.79 - Rheumatoid arthritis with rheumatoid factor of multiple sites without organ or systems involvement Plan: This is a 57-year-old female with seropositive RA who presents for follow-up. Patient is in remission on methotrexate 20 mg weekly however she has been having fatigue, as well as nausea and GI upset with methotrexate. Labs showed transaminitis. Will DC methotrexate. Patient currently has a fungal infection in her right groin that is improving with Nystatin powder. We discussed switching to a TNF inhibitor such as Enbrel. Can switch to a TNF inhibitor if patient's rash is improving. Infectious screening hepatitis panel and T spot -ve 2021 Follow-up in 1 month.? Plan I spent 28 minutes reviewing patient's chart, evaluating patient, ordering diagnostic workup, counseling patient & her and documenting in the chart Coding Level of Care Code Est Pt Level 4 (24312) Diagnoses Rheumatoid arthritis M05.79 Rheumatoid arthritis location: multiple sites Rheumatoid factor presence: with rheumatoid factor
== END 2022-10-19 15:02 | disposition home or self-care (01) ==
PROVIDERS: PCP Student in an Organized Health Care Education/Training Program; Visit Provider Student in an Organized Health Care Education/Training Program
DX: M05.79 Rheumatoid arthritis with rheumatoid factor of multiple sites without organ or systems involvement (principal)
CPT/HCPCS: 99214

== ENCOUNTER → 2022-10-19 14:24 | Outpatient (BNVA) | payer OTHER, SELFPAY | PROVIDERS: PCP Student in an Organized Health Care Education/Training Program; Visit Provider Student in an Organized Health Care Education/Training Program ==

== ENCOUNTER 2022-11-21 16:14 | Outpatient (REF) | payer OTHER, SELFPAY ==
[2022-11-21 16:27] LABS: MANUAL DIFF FLAG NO
[2022-11-21 16:56] LABS: Basophils Percent Auto 0.3 % (0-2); Eosinophils Absolute Auto 0.1 X10*3/uL (0.0-0.4); Eosinophils Percent Auto 0.6 % (0-4); Hematocrit 39.3 % (37.0-47.0); Imm Gran Abs Auto 0.04 X10*3/uL (0.00-0.03); Imm Gran Pct Auto 0.4 % (0.0-0.4); Lymphocytes Absolute Auto 2.9 X10*3/uL (1.2-4.9); Lymphocytes Percent Auto 32.6 % (20-40); Mean Corpuscular HGB Conc 30.5 g/dl (31.0-35.0); Mean Corpuscular Hemoglobin 23.2 pg (27.0-33.0); Mean Platelet Volume 10.5 fL (9.4-12.3); Monocytes Absolute Auto 0.6 X10*3/uL (0.1-1.2); Monocytes Percent Auto 6.5 % (2-11); Neutrophils Absolute Auto 5.3 x10*3/uL (2.0-8.3); Neutrophils Percent Auto 59.6 % (45-73); Platelet Count 362 X10*3/uL (160-400); Red Blood Count 5.17 X10*6/uL (4.20-5.50); Red Cell Distribution Width 16.4 % (11.0-16.0); White Blood Count 8.9 X10*3/uL (4.8-10.8)
[2022-11-21 17:46] LABS: Alanine Aminotransferase 16 U/L (0-31); Alkaline Phosphatase 112 U/L (39-117); Anion Gap 13 (12-20); Aspartate Amino Transferase 19 U/L (5-31); Bilirubin Total 0.3 mg/dL (0.0-1.0); Blood Urea Nitrogen 10 mg/dL (9-16); C Reactive Protein 0.22 mg/dL (< or = 0.50); Calcium 9.5 mg/dL (8.4-10.2); Carbon Dioxide 26 mmol/L (22-29); Chloride 109 mmol/L (96-108); Estimated Glomerular Filt Rate > 60; Glucose Random 80 mg/dL (60-115); Potassium 3.9 mmol/L (3.3-5.1); Sodium 144 mmol/L (135-145); Total Protein 7.3 g/dL (6.5-8.0)
[2022-11-21 17:54] LABS: Erythrocyte Sedimentation Rate 10 MM/HR (0-20)
== END 2022-11-21 16:15 | disposition home or self-care (01) ==
LOC: HO.LAB 16:14
PROVIDERS: PCP Student in an Organized Health Care Education/Training Program; Visit Provider Student in an Organized Health Care Education/Training Program
DX: Z79.631 Long term (current) use of antimetabolite agent (principal)
CPT/HCPCS: 36415; 80053; 85025; 85652; 86140

== ENCOUNTER 2022-11-23 11:49 | Outpatient (AMB) | payer OTHER, SELFPAY ==
--- NOTE | 2022-11-23 11:51 | A.OFFVIS_ITS ---
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 She is off all DMARDs for 1 month. She denies any recurrent joint pain or swelling. Skin rash on her right groin is improving. Initial history: This is a 56-year-old female with a past medical history of morbid obesity presents for evaluation of multiple joint pain and swelling. The condition started 1 month ago with abrupt onset of right knee pain and swelling, the pain then shifts to another joint such as left shoulder, elbows, wrists, other knee. She would continue to have pain in the initial joint but the pain would be less severe and the severity would be in another joint. Today the most painful joints are the right knee , right right shoulder and right wrist. Pain is improved with Tylenol. Patient is unable to take NSAIDs due to history of esophagitis. Patient went to the ER and was prescribed lidocaine patches which did not help. She has a prescription for oxycodone which she previously takes due to painful menstrual periods. (? Adenomyosis) she currently takes the oxycodone for the joint pain which does take the edge off. In October patient had a dental infection, she received multiple courses of a moxicillin. She eventually had a root canal. Currently she does not have any dental symptoms. She denies any fevers, weight loss, skin rashes, Raynaud's. There is no history of DVT/PE. 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 Female Reproductive History Menstrual Age of Menarche: 12 Review of Systems [facility] [place] Denies arthralgias and Denies joint swelling Skin/Breast Reports rash Physical Exam Vital Signs: Last Vital Signs Temp 97.5 F 11/23/22 11:58 Pulse 71 11/23/22 11:58 BP 114/76 11/23/22 11:58 Pulse Ox 99 11/23/22 11:58 Oxygen Delivery Method Room Air 11/23/22 11:58 BMI result Body Mass Index 41.9 Const General: cooperative, healthy appearing, comfortable and acute distress mild Nutritional Appearance: obese morbidly obese Orientation/consciousness: patient oriented x3 Limitations: no limitations HEENT Head: Yes normocephalic and Yes atraumatic Mouth: moist mucous membranes Resp Effort & Inspection: normal respiratory effort and able to speak in complete sentences Skin Other: Candidal intertrigo right groin, rash has regressed in size compared to last visit Neuro General: patient oriented x3 Extrem Other: No synovitis today Assessment & Plan Assessment & Plan (1) Rheumatoid arthritis: Comment: +RF+++CCP diagnosed 01/2022 Methotrexate started 03/2022 effective DC 10/17 due to transaminitis, fatigue, GI upset Code(s): M06.9 - Rheumatoid arthritis, unspecified Qualifiers: Rheumatoid arthritis location: multiple sites Rheumatoid factor presence: with rheumatoid factor Qualified Code(s): M05.79 - Rheumatoid arthritis with rheumatoid factor of multiple sites without organ or systems involvement Plan: This is a 57-year-old female with seropositive RA who presents for follow-up. P joanna has been off DMARDs for 1 month without recurrent synovitis. At this point her inflammatory arthritis is likely palindromic in nature and potentially linked to her dental infection last year that has since resolved. Transaminitis resolved after methotrexate was discontinued Will continue to monitor patient off DMARDs. Infectious screening hepatitis panel and T spot -ve 2021 Follow-up in 6 months.? Advised patient to call the clinic if she starts having recurrent joint pain and we can schedule an appointment sooner Plan I spent 15 minutes reviewing patient's chart, evaluating patient, counseling patient & her and documenting in the chart Coding Level of Care Code Est Pt Level 3 (31780) Diagnoses Rheumatoid arthritis involving multiple sites with positive rheumatoid factor M05.79 Rheumatoid arthritis location: multiple sites Rheumatoid factor presence: with rheumatoid factor
[2022-11-23 11:58] VITALS: BP 114/76; PULSE 71; TEMP 36.4; O2SAT 99; BMI 41.9
== END 2022-11-23 12:05 | disposition home or self-care (01) ==
PROVIDERS: PCP Student in an Organized Health Care Education/Training Program; Visit Provider Student in an Organized Health Care Education/Training Program
DX: M05.79 Rheumatoid arthritis with rheumatoid factor of multiple sites without organ or systems involvement (principal)
CPT/HCPCS: 99213

== ENCOUNTER → 2022-11-23 11:49 | Outpatient (BNVA) | payer OTHER, SELFPAY | PROVIDERS: PCP Student in an Organized Health Care Education/Training Program; Visit Provider Student in an Organized Health Care Education/Training Program ==

== ENCOUNTER 2023-01-22 15:06 | Outpatient (AMB) | payer OTHER, SELFPAY ==
--- NOTE | 2023-01-22 15:13 | A.OFFVIS_ITS ---
Intake Vital Signs 01/22/23 15:14 Height 5 ft 3 in Weight 237 lb BMI 42.0 BP 154/69 H Blood Pressure Location Lt brachial Position Sitting Pulse 74 Intake Visit Reasons: Colonoscopy Screening Intake Note: Patient new consult for 2nd pre colonoscopy screening. Patient denies any GI issues. 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 Accompanied by: Self / Same As Patient Allergies methotrexate Adverse Reaction (Intermediate, Verified 01/22/23 15:13) Fatigued Medication List - Last Reconciled 01/22/23 by Norma White PA-C acetaminophen (Tylenol Extra Strength) 500 mg PO Q6H PRN famotidine 40 mg PO DAILY oxycodone-acetaminophen 5-325 mg tabs PO HPI HPI Comments History of Present Illness Details A 57 y/o female referred for screening colonoscopy - Bowels- normal Appetite good- hx lapband 10 year ago- famotidine- rarely a has the need to take it,- want to discuss lap band- unable to get establashed- No respiratory or cardiac issues No nausea, vomiting, hematemesis, hematochezia fever chills PFSH Medical History (Updated 01/24/23 @ 13:42 by Norma White PA-C) FH: cholecystectomy Surgical History (Updated 01/24/23 @ 13:39 by Norma White PA-C) LAP-BAND surgery status History of Family History Maternal Aunt Breast [place] Social History Household Members: Spouse Alcohol intake: never Patient Tobacco Use Status: Never used Tobacco Current occupational status: employed 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 Female Reproductive History Menstrual Age of Menarche: 12 Review of Systems Const All systems reviewed & are unremarkable except as noted in HPI and below Card Denies chest pain and Denies dyspnea Resp Denies dyspnea GI Denies abdominal pain, Denies hematochezia, Denies change in bowel habits, Denies heartburn, Denies nausea and Denies vomiting Physical Exam Vital Signs: Last Vital Signs Pulse 74 01/22/23 15:14 BP 154/69 H 01/22/23 15:14 BMI result Body Mass Index 42.0 Const General: cooperative, healthy appearing, comfortable and no acute distress Nutritional Appearance: overweight Orientation/consciousness: patient oriented x3 Limitations: no limitations Eyes Sclerae: sclerae normal Resp Effort & Inspection: normal respiratory effort and able to speak in complete sentences Auscultation: clear to auscultation bilaterally (Distant breath sounds), no rales, no rhonchi and no wheezes Cardio Rate: regular rate Rhythm: regular rhythm Heart sounds: S1 normal heart sound present and S2 normal heart sound present GI Palpation (GI): Soft to palpation and nontender Auscultation: normal bowel sounds Skin General skin exam: no rashes or lesions noted Neuro General: patient oriented x3 Extrem General: Yes full ROM Psych Mental Status: mental status grossly normal Speech and movement: Clear speech present Affect: Labile affect present Attitude: cooperative Thought content: Normal thought content present Assessment & Plan Assessment & Plan (1) Encounter for screening colonoscopy: Comment: Not forthcoming, Discussed procedure, rare risks, need for escort Code(s): Z12.11 - Encounter for screening for malignant neoplasm of colon Plan: Screening colonoscopy Where like Gatorade prep (2) LAP-BAND surgery status: Comment: Patient requesting [id number]-foi been unable to establish Code(s): Z98.84 - Bariatric surgery status Plan: Referral to Bariatric Plan Screening colonoscopy MiraLax Gatorade prep Bariatric referral Orders: Orders Colonoscopy - GI Use Only 01/22/23 Z12.11 - Encounter for screening for melody gnant neoplasm of colon Referrals Medical Weight Management Referral Z98.84 - Bariatric surgery status Medications: New bisacodyl (Dulcolax (bisacodyl)) Day before procedure, prep day Take 4 tablets by mouth upon awakening followed by large glass of water 20 mg (4 x 5 mg) PO ONCE 1 day 4 tabs 0RF colonoscopy prep Z12.11 - Encounter for screening for malignant neoplasm of colon polyethylene glycol 3350 (Miralax) Take as directed by mouth the day before your procedure. 238 grams PO ONCE 1 day PRN 238 grams 0RF laxative effect Patient Instructions: Screening colonoscopy MiraLax Gatorade prep, reviewed literature given Enourage to call questions or concerns Bariatric referral Coding Level of Care Code New Pt Level 3 (77045) Diagnoses Encounter for screening colonoscopy Z12.11 LAP-BAND surgery status Z98.84 Time Spent (min) 30
[2023-01-22 15:14] VITALS: BP 154/69; PULSE 74; BMI 42.0
== END 2023-01-22 15:48 | disposition home or self-care (01) ==
PROVIDERS: PCP Student in an Organized Health Care Education/Training Program; Visit Provider Physician Assistant
DX: Z12.11 Encounter for screening for malignant neoplasm of colon (principal); Z98.84 Bariatric surgery status; Z01.818 Encounter for other preprocedural examination
CPT/HCPCS: 99203

== ENCOUNTER → 2023-01-22 15:06 | Outpatient (BNVA) | payer OTHER, SELFPAY | PROVIDERS: PCP Student in an Organized Health Care Education/Training Program; Visit Provider Physician Assistant ==

== ENCOUNTER 2023-01-25 07:02 | Outpatient (REF) | payer OTHER, SELFPAY ==
[2023-01-25 07:20] LABS: MANUAL DIFF FLAG NO
[2023-01-25 07:45] LABS: Basophils Percent Auto 0.6 % (0-2); Eosinophils Absolute Auto 0.1 X10*3/uL (0.0-0.4); Eosinophils Percent Auto 1.4 % (0-4); Hemoglobin 12.1 g/dl (12.0-16.0); Imm Gran Abs Auto 0.02 X10*3/uL (0.00-0.03); Imm Gran Pct Auto 0.3 % (0.0-0.4); Lymphocytes Absolute Auto 2.4 X10*3/uL (1.2-4.9); Lymphocytes Percent Auto 35.8 % (20-40); Mean Corpuscular Hemoglobin 22.1 pg (27.0-33.0); Mean Corpuscular Volume 71.2 fL (80.0-98.0); Monocytes Absolute Auto 0.5 X10*3/uL (0.1-1.2); Monocytes Percent Auto 7.6 % (2-11); Neutrophils Absolute Auto 3.6 x10*3/uL (2.0-8.3); Neutrophils Percent Auto 54.3 % (45-73); Platelet Count 376 X10*3/uL (160-400); Red Blood Count 5.48 X10*6/uL (4.20-5.50); Red Cell Distribution Width 15.1 % (11.0-16.0); White Blood Count 6.6 X10*3/uL (4.8-10.8)
[2023-01-25 08:18] LABS: Alanine Aminotransferase 26 U/L (0-31); Albumin Level 3.7 g/dL (3.5-5.0); Alkaline Phosphatase 141 U/L (39-117); Anion Gap 11 (12-20); Aspartate Amino Transferase 24 U/L (5-31); Bilirubin Total 0.4 mg/dL (0.0-1.0); Blood Urea Nitrogen 10 mg/dL (9-16); C Reactive Protein 0.59 mg/dL (< or = 0.50); Calcium 9.1 mg/dL (8.4-10.2); Carbon Dioxide 25 mmol/L (22-29); Chloride 111 mmol/L (96-108); Estimated Glomerular Filt Rate > 60; Glucose Random 95 mg/dL (60-115); Potassium 3.9 mmol/L (3.3-5.1); Sodium 143 mmol/L (135-145); Total Protein 7.2 g/dL (6.5-8.0)
[2023-01-25 08:22] LABS: Erythrocyte Sedimentation Rate 17 MM/HR (0-20)
== END 2023-01-25 07:03 | disposition home or self-care (01) ==
LOC: HO.LAB 07:02
PROVIDERS: PCP Student in an Organized Health Care Education/Training Program; Visit Provider Student in an Organized Health Care Education/Training Program
DX: M05.79 Rheumatoid arthritis with rheumatoid factor of multiple sites without organ or systems involvement (principal); Z79.899 Other long term (current) drug therapy
CPT/HCPCS: 36415; 80053; 85025; 85652; 86140

== ENCOUNTER 2023-01-25 10:46 | Outpatient (AMB) | payer OTHER, SELFPAY ==
--- NOTE | 2023-01-25 10:50 | MHC.OFFVIS ---
Intake Vital Signs 01/25/23 10:51 Height 5 ft 3 in Weight 244 lb 4.355 oz BMI 43.3 BP 126/84 Blood Pressure Location Rt brachial Position Sitting Pulse 69 Pulse Source Pulse Oximeter Temp 96.9 F Temp Source Skin Pulse Oximetry (%) 98 Oxygen Delivery Method Room Air Intake Visit Reasons: pain/swelling Intake Note: Patient last seen 11/23/22, presents today for pain and swelling. She states she has had increased pain X3 weeks. Bilateral shoulders, hands, thighs,legs, knees pain and swelling. Patient tried Motrin and it is not relieving pain. She states she is having difficulty walking. MTX discontinued in September, due to elevated LFT's. 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 Accompanied by: Self / Same As Patient Allergies methotrexate Adverse Reaction (Intermediate, Verified 01/25/23 10:53) Fatigued Medication List - Last Reconciled 01/25/23 by Kyle Garcia MD acetaminophen (Tylenol Extra Strength) 500 mg PO Q6H PRN bisacodyl (Dulcolax (bisacodyl)) 20 mg (4 x 5 mg) PO ONCE 1 day famotidine 40 mg PO DAILY hydroxychloroquine 200 mg PO BID oxycodone-acetaminophen 5-325 mg tabs PO polyethylene glycol 3350 (Miralax) 238 grams PO ONCE PRN 1 day prednisone Take 3 tabs by mouth daily for 2 weeks then 2 tabs daily for 2 weeks then 1 tab daily for 2 weeks then stop HPI HPI Comments History of Present Illness Details This is a 57-year-old female with seropositive RA who presents for follow-up. She is off all DMARD since September of 2022. She states that for the last month she has been having migratory and additive joint pain, that involves her fingers, ankles, knees, left shoulder, she has been taking ibuprofen without relief. No dental issues Initial history: This is a 56-year-old female with a past medical history of morbid obesity presents for evaluation of multiple joint pain and swelling. The condition started 1 month ago with abrupt onset of right knee pain and swelling, the pain then shifts to another joint such as left shoulder, elbows, wrists, other knee. She would continue to have pain in the initial joint but the pain would be less severe and the severity would be in another joint. Today the most painful joints are the right knee , right right shoulder and right wrist. Pain is improved with Tylenol. Patient is unable to take NSAIDs due to history of esophagitis. Patient went to the ER and was prescribed lidocaine patches which did not help. She has a prescription for oxycodone which she previously takes due to painful menstrual periods. (? Adenomyosis) she currently takes the oxycodone for the joint pain which does take the edge off. In October patient had a dental infection, she received multiple courses of amoxicillin. She eventually had a root canal. Currently she does not have any dental symptoms. She denies any fevers, weight loss, skin rashes, Raynaud's. There is no history of DVT/PE. 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 Female Reproductive History Menstrual Age of Menarche: 12 Review of Systems [facility] [place] Reports arthralgias and Reports stiffness Skin/Breast Details: Rash on right groin is improving Reports rash Physical Exam Vital Signs: Last Vital Signs Temp 96.9 F 01/25/23 10:51 Pulse 69 01/25/23 10:51 BP 126/84 01/25/23 10:51 Pulse Ox 98 01/25/23 10:51 Oxygen Delivery Method Room Air 01/25/23 10:51 BMI result Body Mass Index 43.3 Const General: cooperative, healthy appearing, comfortable and acute distress mild Nutritional Appearance: obese morbidly obese Orientation/consciousness: patient oriented x3 Limitations: no limitations HEENT Head: Yes normocephalic and Yes atraumatic Mouth: moist mucous membranes Resp Effort & Inspection: normal respiratory effort and able to speak in complete sentences Skin Other: Candidal intertrigo right groin, rash has regressed in size compared to last visit Neuro General: patient oriented x3 Extrem Other: Right 3rd MCP tenderness and tenderness along the 3rd extensor tendon Left 3rd MCP tenderness and tenderness along the extensor tendon Reduced range of motion of left shoulder Right knee pain with range of motion Bilateral trochanteric bursa area tenderness Negative MTP squeeze test Assessment & Plan Assessment & Plan (1) Rheumatoid arthritis: Comment: +RF+++CCP diagnosed 01/2022 Methotrexate started 03/2022 effective DC 10/17 due to transaminitis, fatigue, GI upset Code(s): M06.9 - Rheumatoid arthritis, unspecified Qualifiers: Rheumatoid arthritis location: multiple sites Rheumatoid factor presence: with rheumatoid factor Qualified Code(s): M05.79 - Rheumatoid arthritis with rheumatoid factor of multiple sites without organ or systems involvement Plan: This is a 57-year-old female with seropositive RA who presents for follow-up. Patient has been off DMARDs for 3 months, 1 month ago she started having migratory and additive inflammatory arthritis. At this point her inflammatory arthritis is likely palindromic in nature and potentially linked to her dental infection last year that has since resolved. Upon evaluation today she has multiple tender joints. Today she had does not have any dental infections. Will need to start DMARDs. Discussed risks and benefits of hydroxychloroquine. Patient agreed to proceed. Start hydroxychloroquine 200 mg Twice daily Start prednisone taper for relief Infectious screening hepatitis panel and T spot -ve 2021 Labs before next visit in 3 months (2) Long-term use of hydroxychloroquine: Code(s): Z79.899 - Other predatory animal exterminator (current) drug therapy Plan I spent 15 minutes reviewing patient's chart, evaluating patient, counseling patient & her and documenting in the chart Orders: Orders C Reactive Protein 3 Months M06.9 - Rheumatoid arthritis, unspecified Complete Blood Count Auto Diff 3 Months M06.9 - Rheumatoid arthritis, unspecified Comprehensive Met. Panel 3 Months M06.9 - Rheumatoid arthritis, unspecified Erythrocyte Sedimentation Rate 3 Months M06.9 - Rheumatoid arthritis, unspecified Referrals Ophthalmology Referral Z79.899 - Other predatory animal exterminator (current) drug therapy Medications: New prednisone Take 3 tabs by mouth daily for 2 weeks then 2 tabs daily for 2 weeks then 1 tab daily for 2 weeks then stop 84 tabs 0RF hydroxychloroquine 200 mg PO BID 60 tabs 2RF Coding Level of Care Code Est Pt Level 4 (61709) Diagnoses Rheumatoid arthritis involving multiple sites with positive rheumatoid factor M05.79 Rheumatoid arthritis location: multiple sites Rheumatoid factor presence: with rheumatoid factor Long-term use of hydroxychloroquine Z79.899
[2023-01-25 10:51] VITALS: BP 126/84; PULSE 69; TEMP 36.1; O2SAT 98; BMI 43.3
== END 2023-01-25 11:21 | disposition home or self-care (01) ==
PROVIDERS: PCP Student in an Organized Health Care Education/Training Program; Visit Provider Student in an Organized Health Care Education/Training Program
DX: M05.79 Rheumatoid arthritis with rheumatoid factor of multiple sites without organ or systems involvement (principal); Z79.899 Other long term (current) drug therapy
CPT/HCPCS: 99214

== ENCOUNTER 2023-05-13 16:58 | Outpatient (REF) | payer OTHER, SELFPAY ==
[2023-05-13 17:11] LABS: MANUAL DIFF FLAG NO
[2023-05-13 17:53] LABS: Basophils Percent Auto 0.5 % (0-2); Eosinophils Absolute Auto 0.1 X10*3/uL (0.0-0.4); Hematocrit 40.9 % (37.0-47.0); Hemoglobin 12.8 g/dl (12.0-16.0); Imm Gran Abs Auto 0.03 X10*3/uL (0.00-0.03); Imm Gran Pct Auto 0.5 % (0.0-0.4); Lymphocytes Absolute Auto 2.2 X10*3/uL (1.2-4.9); Lymphocytes Percent Auto 36.3 % (20-40); Mean Corpuscular HGB Conc 31.3 g/dl (31.0-35.0); Mean Corpuscular Hemoglobin 22.3 pg (27.0-33.0); Mean Corpuscular Volume 71.1 fL (80.0-98.0); Mean Platelet Volume 10.4 fL (9.4-12.3); Monocytes Absolute Auto 0.4 X10*3/uL (0.1-1.2); Monocytes Percent Auto 6.7 % (2-11); Neutrophils Absolute Auto 3.3 x10*3/uL (2.0-8.3); Platelet Count 260 X10*3/uL (160-400); Red Blood Count 5.75 X10*6/uL (4.20-5.50); Red Cell Distribution Width 16.7 % (11.0-16.0); White Blood Count 5.9 X10*3/uL (4.8-10.8)
[2023-05-13 18:07] LABS: Alanine Aminotransferase 13 U/L (0-31); Albumin Level 3.8 g/dL (3.5-5.0); Alkaline Phosphatase 117 U/L (39-117); Anion Gap 13 (12-20); Aspartate Amino Transferase 18 U/L (5-31); Bilirubin Total 0.3 mg/dL (0.0-1.0); Blood Urea Nitrogen 11 mg/dL (9-16); C Reactive Protein 0.13 mg/dL (< or = 0.50); Calcium 9.5 mg/dL (8.4-10.2); Carbon Dioxide 26 mmol/L (22-29); Chloride 108 mmol/L (96-108); Estimated Glomerular Filt Rate > 60; Glucose Random 75 mg/dL (60-115); Potassium 3.7 mmol/L (3.3-5.1); Sodium 143 mmol/L (135-145); Total Protein 7.2 g/dL (6.5-8.0)
[2023-05-13 18:59] LABS: Erythrocyte Sedimentation Rate 14 MM/HR (0-20)
== END 2023-05-13 16:59 | disposition home or self-care (01) ==
LOC: HO.LAB 16:58
PROVIDERS: PCP Student in an Organized Health Care Education/Training Program; Visit Provider Student in an Organized Health Care Education/Training Program
DX: M06.9 Rheumatoid arthritis, unspecified (principal)
CPT/HCPCS: 36415; 80053; 85025; 85652; 86140

== ENCOUNTER 2023-05-14 14:03 | Outpatient (AMB) | payer OTHER, SELFPAY ==
[2023-05-14 14:07] VITALS: BP 128/82; PULSE 81; O2SAT 97; BMI 46.3
--- NOTE | 2023-05-14 14:07 | A.OFFVIS_ITS ---
Intake Vital Signs 05/14/23 14:07 Height 5 ft 3 in Weight 261 lb 7.492 oz BMI 46.3 BP 128/82 Blood Pressure Location Rt brachial Position Sitting Pulse 81 Pulse Source Pulse Oximeter Pulse Oximetry (%) 97 Oxygen Delivery Method Room Air Intake Visit Reasons: RA Intake Note: Patient last seen 01/25/23 presents today for follow up and test results. Curriculum Assistant Principal Required: No Accompanied by: Spouse Allergies methotrexate Adverse Reaction (Intermediate, Verified 05/14/23 14:11) Fatigued Medication List - Last Reconciled 05/14/23 by Kyle Garcia MD acetaminophen (Tylenol Extra Strength) 500 mg PO Q6H PRN bisacodyl (Dulcolax (bisacodyl)) 20 mg (4 x 5 mg) PO ONCE 1 day famotidine 40 mg PO DAILY hydroxychloroquine 200 mg PO BID oxycodone-acetaminophen 5-325 mg tabs PO polyethylene glycol 3350 (Miralax) 238 grams PO ONCE PRN 1 day HPI HPI Comments History of Present Illness Details This is a 58-year-old female with seropositive RA who presents for follow-up. She has been on hydroxychloroquine 200 mg Twice daily for 3 months now. Denies any side effects. Was evaluated by field placement director and cleared to continue with hydroxychloroquine. She states that she is doing fairly well overall. Continues to have intermittent joint pain. She has been having right knee pain. Her last injection was about 10 months ago. Is also having right hip pain, and right buttock pain intermittently radiating down the back of her right thigh. She is also having some left 3rd MCP pain and left shoulder pain. Initial history: This is a 56-year-old female with a past medical history of morbid obesity presents for evaluation of multiple joint pain and swelling. The condition started 1 month ago with abrupt onset of right knee pain and swelling, the pain then shifts to another joint such as left shoulder, elbows, wrists, other knee. She would continue to have pain in the initial joint but the pain would be less severe and the severity would be in another joint. Today the most painful joints are the right knee , right right shoulder and right wrist. Pain is improved with Tylenol. Patient is unable to take NSAIDs due to history of esophagitis. Patient went to the ER and was prescribed lidocaine patches which did not help. She has a prescription for oxycodone which she previously takes due to painful menstrual periods. (? Adenomyosis) she currently takes the oxycodone for the joint pain which does take the edge off. In October patient had a dental infection, she received multiple courses of amoxicillin. She eventually had a root canal. Currently she does not have any dental symptoms. She denies any fevers, weight loss, skin rashes, Raynaud's. There is no history of DVT/PE. 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 Female Reproductive History Menstrual Age of Menarche: 12 Review of Systems [facility] [place] Reports arthralgias and Reports stiffness Skin/Breast Details: Rash on right groin is improving Reports rash Physical Exam Vital Signs: Last Vital Signs Pulse 81 05/14/23 14:07 BP 128/82 05/14/23 14:07 Pulse Ox 97 05/14/23 14:07 Oxygen Delivery Method Room Air 05/14/23 14:07 BMI result Body Mass Index 46.3 Const General: cooperative, healthy appearing, comfortable and acute distress mild Nutritional Appearance: obese morbidly obese Orientation/consciousness: patient oriented x3 Limitations: no limitations HEENT Head: Yes normocephalic and Yes atraumatic Mouth: moist mucous membranes Resp Effort & Inspection: normal respiratory effort and able to speak in complete sentences Neuro General: patient oriented x3 Extrem Other: No active synovitis right hand and wrist Left 3rd MCP tenderness Reduced range of motion of left shoulder Positive empty can test on the left Right knee warmth, and pain with range of motion Right trochanteric bursa area tenderness Negative MTP squeeze test Assessment & Plan Assessment & Plan (1) Rheumatoid arthritis: Comment: +RF+++CCP diagnosed 01/2022 Methotrexate started 03/2022 effective DC 10/17 due to transaminitis, fatigue, GI upset HCQ 01/2023 effective Code(s): M06.9 - Rheumatoid arthritis, unspecified Qualifiers: Rheumatoid arthritis location: multiple sites Rheumatoid factor p resence: with rheumatoid factor Qualified Code(s): M05.79 - Rheumatoid arthritis with rheumatoid factor of multiple sites without organ or systems involvement Plan: This is a 58-year-old female with seropositive RA who presents for follow-up. She has been on hydroxychloroquine 200 mg Twice daily for the last 3 months. Doing much better overall. Today she has 1 tender joint related to rheumatoid arthritis. Her other pains are likely mechanical and degenerative in nature. Patient gets steroid injections by her PCP for her right knee osteoarthritis. Last injection was about 10 months ago. Advised patient to reach out to her PCP. Continue with hydroxychloroquine 200 mg Twice daily Infectious screening hepatitis panel and T spot -ve 2021 Labs before next visit in 3 months (2) Long-term use of hydroxychloroquine: Comment: Eye exam okay 03/2023 Code(s): Z79.899 - Other straw hat plunger operator (current) drug therapy Plan: Discussed risk of retinopathy associated with hydroxychloroquine. Patient was evaluated by field placement director and cleared to tissue with hydroxychloroquine 03/2023 Plan I spent 25 minutes reviewing patient's chart, evaluating patient, counseling patient & her and documenting in the chart Orders: Orders Complete Blood Count Auto Diff 3 Months M06.9 - Rheumatoid arthritis, unspecified Erythrocyte Sedimentation Rate 3 Months M06.9 - Rheumatoid arthritis, unspecified Comprehensive Met. Panel 3 Months M06.9 - Rheumatoid arthritis, unspecified C Reactive Protein 3 Months M06.9 - Rheumatoid arthritis, unspecified Coding Level of Care Code Est Pt Level 4 (65861) Diagnoses Rheumatoid arthritis involving multiple sites with positive rheumatoid factor M05.79 Rheumatoid arthritis location: multiple sites Rheumatoid factor presence: with rheumatoid factor Long-term use of hydroxychloroquine Z79.899
== END 2023-05-14 14:32 | disposition home or self-care (01) ==
PROVIDERS: PCP Student in an Organized Health Care Education/Training Program; Visit Provider Student in an Organized Health Care Education/Training Program
DX: M05.79 Rheumatoid arthritis with rheumatoid factor of multiple sites without organ or systems involvement (principal); Z79.899 Other long term (current) drug therapy
CPT/HCPCS: 99214

== ENCOUNTER → 2023-05-14 14:03 | Outpatient (BNVA) | payer OTHER, SELFPAY | PROVIDERS: PCP Student in an Organized Health Care Education/Training Program; Visit Provider Student in an Organized Health Care Education/Training Program ==

== ENCOUNTER 2023-05-30 12:29 | Day surgery (SDC) | payer OTHER, SELFPAY ==
--- NOTE | 2023-05-28 15:35 | HO.ANESPROP2 ---
Documented by User: Mallory Dueñas NP 05/28/23 15:36 HPI - Anesthesia Eval Consult details Narrative: 58yo F for Colonoscopy PMFSH Active Problems Active Problems: All Active Problems (Updated 05/14/23 @ 14:36 by Kyle Garcia MD) Long-term use of hydroxychloroquine (Acute) LAP-BAND surgery status (Acute) Degenerative disc disease, lumbar (Acute) Greater trochanteric pain syndrome of both lower extremities (Acute) Rheumatoid arthritis (Acute) Diabetes mellitus screening (Acute) Myoma (Acute) Postmenopausal bleeding (Acute) Past Medical History Medical History Long-term use of hydroxychloroquine Degenerative disc disease, lumbar Rheumatoid arthritis FH: cholecystectomy Family History Family History Maternal Aunt Breast CA Surgical History Surgical History LAP-BAND surgery status History of Social History Social History Household Members: Spouse Alcohol intake: never Patient Tobacco Use Status: Never used Tobacco Are you DNR?: No Advance Directives: No Advance Directives Information Provided: Yes Nutrition Risks: No Nutritional Risk Current occupational status: employed 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 Meds Allergies Allergy/AdvReac Type Severity Reaction Status Date / Time methotrexate AdvReac Intermediate Fatigued Verified 05/30/23 12:37 Home Medications ?Medication ?Instructions ?Recorded ?Confirmed ?Last Taken ?Type oxycodone-acetaminophen 5 mg-325 tab PO 02/23/22 05/14/23 Unknown History mg tablet Assessment and Plan Assessment Anesthesia Assessment: Chart Reviewed Documented by User: Nikunj Padilla MD 05/30/23 13:00 PMFSH Past Medical History Medical History Long-term use of hydroxychloroquine Degenerative disc disease, lumbar Rheumatoid arthritis FH: cholecystectomy Family History Family History Maternal Aunt Breast [place] Family history of problems with anesthesia: No Surgical History Surgical History LAP-BAND surgery status History of History of Problems with Anesthesia: No Social History Social History Household Members: Spouse Alcohol intake: never Patient Tobacco Use Status: Never used Tobacco Are you DNR?: No Advance Directives: No Advance Directives Information Provided: Yes Nutrition Risks: No Nutritional Risk Current occupational status: employed 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 Meds Allergies Allergy/AdvReac Type Severity Reaction Status Date / Time methotrexate AdvReac Intermediate Fatigued Verified 05/30/23 12:37 Home Medications ?Medication ?Instructions ?Recorded ?Confirmed ?Last Taken ?Type oxycodone-acetaminophen 5 mg-325 tab PO 02/23/22 05/14/23 Unknown History mg tablet Exam Airway Mallampati Class: III TM Dist: <=3cm Neck ROM: Full Loose/Missing/Broken Teeth: No Heart: rrr Lungs: cta Assessment and Plan Assessment Anesthesia Assessment: Anesthesia Plan Discussed Final Anesthetic Review Family History of Problems with Anesthesia: No History of Problems with Anesthesia: No NPO: Yes ASA Class: II Final Preanesthetic Review: No Changes in Pt Med Stat, Meds/Allgs Chart Reviewed, Consent Obtained/Reviewed and Anes Risks/Benef Reviewed Patient Risk: Intermediate Procedure Risk: Intermediate Anesthetic Plan Anesthetic Plan: MAC: Disposition: Standard PACU
--- NOTE | 2023-05-30 12:35 | MHC.SHP ---
Pre-Procedural Eval Section A - 24 Hr Update-Section A only Date of Service: 05/30/23 Section B - Complete if H&P > 30 days Chief Complaint: Encounter for screening for malignant neoplasm of Details of Present Illness: Surgical History (Updated 01/24/23 @ 13:39 by Norma White PA-C) LAP-BAND surgery status History of Relevant Social History: None Present Medications: see Short Stay Collaborative assessment Medical History: No relevant PMH Allergies: Allergies Allergy/AdvReac Type Severity Reaction Status Date / Time methotrexate AdvReac Intermediate Fatigued Verified 05/14/23 14:11 Review of Systems Review of Systems Comment: Ten point ROS negative Exam Exam Comment: Gen appear: No acute distress HEENT: no icterus Chest: No overt resp distress Abd: soft, nontender, nondistended Psych: Stable affect, answering questions appropriately Neuro: A/Ox3 noted to move all extremities spontaneously Ext: no peripheral edema Plan Diagnosis/Plan: Unchanged I have reviewed the history and physical and performed a pertinent physical examination on my patient. No changes have occurred unless specified. Time Spent With Patient Time: Total time managing care of this patient today ____ minutes.
[2023-05-30] MEDS: Lactated Ringers 1,000 ML 100 ML IVCONT (12:44)
[2023-05-30 12:51] VITALS: BMI 44.3
[2023-05-30 12:53] VITALS: BP 156/77; PULSE 82; RESP 18; TEMP 36.7; O2SAT 96
--- NOTE | 2023-05-30 12:56 | P.OP_ITS ---
Operative Note Operative Note Date of Service: 05/30/23 Narrative: Procedure: Colonoscopy Indication: Screening Endoscopist: Danielle Mathews MD Anesthesia Provider: Sadaf Singh CRNA Anesthesia type: MAC Instrument: Olympus [id number]-[id number] Consent: Indication, risks vs benefits, and alternatives were discussed with the patient who gave written informed consent to proceed. EKG, pulse, pulse oximetry and blood pressure were monitored throughout the procedure. Please see anesthesia flowsheet. Procedure: The patient was brought to the procedure room and placed in the left lateral decubitus position. IV medications were administered by the anesthesia provider in attendance. A digital rectal exam was performed which was normal. A distal attachment cap was affixed to the tip of the scope and the colonoscope was then inserted through the anus and advanced through the colon to the cecum at 80 cm,and terminal ileum. Ileocecal valve and appendiceal orifice were identified. Mucosa was carefully examined under high definition white light as the instrument was slowly withdrawn in a retrograde panoramic fashion. Retroflexion was performed in ascending colon and rectum. The procedure was not difficult. There were no immediate obvious complications. The quality of the prep was BBPS: 2+2+2 = adequate Withdrawal time 11 minutes. Limitations: No limitations. Findings: Mucosa: Normal to cecum and terminal ileum. Protruding lesions: * 1 semi-pedunculated polyp of size 7 mm in descending colon. Cold snare polypectomy was performed. The polyp was completely removed and retrieved. * 1 sessile polyp of size 4 mm in rectum. Cold snare polypectomy was performed. The polyp was completely removed and retrieved. * Medium internal hemorrhoids without stigmata of recent bleeding. Impression: 1. Normal colon and terminal ileum mucosa 2. Total of 2 polyps removed 3. Internal hemorrhoids Recommendations: - Follow path results. - Repeat colonoscopy in 5 or 7 depending on path.
[2023-05-30 13:41] VITALS: BP 142/79; PULSE 85; RESP 14; TEMP 36; O2SAT 99
[2023-05-30 14:09] VITALS: BP 153/62; PULSE 94; RESP 18; TEMP 36.1; O2SAT 96
== END 2023-05-30 14:20 | disposition home or self-care (01) ==
PROVIDERS: PCP Student in an Organized Health Care Education/Training Program; Visit Provider Internal Medicine
PROC: 0DJD8ZZ Inspection of Lower Intestinal Tract, Via Natural or Artificial Opening Endoscopic (ICD-10-PCS; CPT 45378; principal; 2023-05-30 15:20)
DX: Z12.11 Encounter for screening for malignant neoplasm of colon (principal); D12.4 Benign neoplasm of descending colon; K62.1 Rectal polyp; K64.8 Other hemorrhoids; Z98.84 Bariatric surgery status
CPT/HCPCS: 45385; 88305; J2704

== ENCOUNTER → 2023-05-30 12:29 | Outpatient (BNV) | payer OTHER, SELFPAY | PROVIDERS: PCP Student in an Organized Health Care Education/Training Program; Visit Provider Internal Medicine | DX: Z12.11 Encounter for screening for malignant neoplasm of colon (principal); D12.4 Benign neoplasm of descending colon; K62.1 Rectal polyp; K64.8 Other hemorrhoids | CPT/HCPCS: 45385 ==

== ENCOUNTER 2023-08-13 14:07 | Outpatient (REF) | payer OTHER, SELFPAY ==
[2023-08-13 14:43] LABS: MANUAL DIFF FLAG NO
[2023-08-13 15:04] LABS: Basophils Percent Auto 0.5 % (0-2); Eosinophils Absolute Auto 0.1 X10*3/uL (0.0-0.4); Eosinophils Percent Auto 1.6 % (0-4); Hematocrit 39.8 % (37.0-47.0); Hemoglobin 12.5 g/dl (12.0-16.0); Imm Gran Abs Auto 0.01 X10*3/uL (0.00-0.03); Imm Gran Pct Auto 0.2 % (0.0-0.4); Lymphocytes Percent Auto 34.7 % (20-40); Mean Corpuscular HGB Conc 31.4 g/dl (31.0-35.0); Mean Corpuscular Hemoglobin 22.2 pg (27.0-33.0); Mean Corpuscular Volume 70.7 fL (80.0-98.0); Mean Platelet Volume 10.3 fL (9.4-12.3); Monocytes Absolute Auto 0.4 X10*3/uL (0.1-1.2); Monocytes Percent Auto 6.2 % (2-11); Neutrophils Absolute Auto 3.3 x10*3/uL (2.0-8.3); Neutrophils Percent Auto 56.8 % (45-73); Platelet Count 227 X10*3/uL (160-400); Red Blood Count 5.63 X10*6/uL (4.20-5.50); Red Cell Distribution Width 16.4 % (11.0-16.0); White Blood Count 5.8 X10*3/uL (4.8-10.8)
[2023-08-13 15:26] LABS: Alanine Aminotransferase 17 U/L (0-31); Albumin Level 3.9 g/dL (3.5-5.0); Alkaline Phosphatase 115 U/L (39-117); Anion Gap 9 (12-20); Aspartate Amino Transferase 19 U/L (5-31); Bilirubin Total 0.4 mg/dL (0.0-1.0); Blood Urea Nitrogen 10 mg/dL (9-16); C Reactive Protein 0.16 mg/dL (< or = 0.50); Calcium 9.6 mg/dL (8.4-10.2); Carbon Dioxide 28 mmol/L (22-29); Chloride 110 mmol/L (96-108); Estimated Glomerular Filt Rate > 60; Glucose Random 87 mg/dL (60-115); Potassium 4.1 mmol/L (3.3-5.1); Sodium 143 mmol/L (135-145); Total Protein 7.1 g/dL (6.5-8.0)
[2023-08-13 15:43] LABS: Erythrocyte Sedimentation Rate 10 MM/HR (0-20)
== END 2023-08-13 14:08 | disposition home or self-care (01) ==
LOC: HO.LAB 14:07
PROVIDERS: PCP Student in an Organized Health Care Education/Training Program; Visit Provider Student in an Organized Health Care Education/Training Program
DX: M06.9 Rheumatoid arthritis, unspecified (principal)
CPT/HCPCS: 36415; 80053; 85025; 85652; 86140

== ENCOUNTER 2023-08-14 14:16 | Outpatient (AMB) | payer OTHER, SELFPAY ==
[2023-08-14 14:36] VITALS: BP 121/81; PULSE 82; RESP 14; TEMP 36.6; BMI 47.4
--- NOTE | 2023-08-14 14:36 | A.OFFVIS_ITS ---
Vital Signs 08/14/23 14:36 Height 5 ft 3 in Weight 267 lb 10.259 oz BMI 47.4 BP 121/81 Blood Pressure Location Rt brachial Position Sitting Respiration 14 Pulse 82 Pulse Source Palpation Temp 97.8 F Temp Source Temporal Artery Scan Intake Visit Reasons: RA/cm Allergies methotrexate Adverse Reaction (Intermediate, Verified 05/30/23 12:37) Fatigued Medication List - Last Reconciled 08/14/23 by Kyle Garcia MD acetaminophen (Tylenol Extra Strength) 500 mg PO Q6H PRN famotidine 40 mg PO DAILY hydroxychloroquine 200 mg PO BID oxycodone-acetaminophen 5-325 mg tabs PO HPI Comments Details: This is a 58-year-old female with seropositive RA who presents for follow-up. She is on hydroxychloroquine 20 mg Twice daily. Her main complaint is her right knee osteoarthritis. She was evaluated by her PCP about a month ago and she stated that her PCP could not do the right knee cortisone injection laterally and it was done from the medial side, she stated that the injection at that time did not provide long-term relief, it only gave her 3-4 weeks relief, it also helped some of her other joint pains in her ankles, hip shoulders. She was evaluated by or orthopedist and received a gel injection about a week ago. She used to get minimal intermittent pain in her fingers, ankles, hips. Initial history: This is a 56-year-old female with a past medical history of morbid obesity presents for evaluation of multiple joint pain and swelling. The condition started 1 month ago with abrupt onset of right knee pain and swelling, the pain then shifts to another joint such as left shoulder, elbows, wrists, other knee. She would continue to have pain in the initial joint but the pain would be less severe and the severity would be in another joint. Today the most painful joints are the right knee , right right shoulder and right wrist. Pain is improved with Tylenol. Patient is unable to take NSAIDs due to history of esophagitis. Patient went to the ER and was prescribed lidocaine patches which did not help. She has a prescription for oxycodone which she previously takes due to painful menstrual periods. (? Adenomyosis) she currently takes the oxycodone for the joint pain which does take the edge off. In October patient had a dental infection, she received multiple courses of amoxicillin. She eventually had a root canal. Currently she does not have any dental symptoms. She denies any fevers, weight loss, skin rashes, Raynaud's. There is no history of DVT/PE. 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 Female Reproductive History Menstrual Age of Menarche: 12 Review of Systems [facility] [place] Reports arthralgias and Reports stiffness Skin/Breast Details: Rash on right groin is improving Reports rash Physical Exam Const General: cooperative, healthy appearing, comfortable and acute distress mild Nutritional Appearance: obese morbidly obese Orientation/consciousness: patient oriented x3 Limitations: no limitations HEENT Head: Yes normocephalic and Yes atraumatic Mouth: moist mucous membranes Resp Effort & Inspection: normal respiratory effort and able to speak in complete sentences Neuro General: patient oriented x3 Extrem Other: No active synovitis right hand and wrist Minimal left 5th PIP tenderness Reduced range of motion of left shoulder Right knee warmth, and pain with range of motion No ankle swelling or tenderness bilaterally Negative MTP squeeze test Assessment & Plan Assessment & Plan (1) Rheumatoid arthritis: Comment: +RF+++CCP diagnosed 01/2022 Methotrexate started 03/2022 effective DC 10/17 due to transaminitis, fatigue, GI upset HCQ 01/2023 effective Code(s): M06.9 - Rheumatoid arthritis, unspecified Category: Medical Qualifiers: Rheumatoid arthritis location: multiple sites Rheumatoid factor presence: with rheumatoid factor Qualified Code(s): M05.79 - Rheumatoid arthritis with rheumatoid factor of multiple sites without organ or systems involvement Plan: This is a 58-year-old female with seropositive RA who presents for follow-up. She is on hydroxychloroquine 200 mg Twice daily. Doing quite well with very few tender joints. No swollen joints. Inflammatory markers normal Her main complaint is due to her right knee osteoarthritis. Continue with hydroxychloroquine 200 mg Twice daily Labs before next visit in 4 months (2) Long-term use of hydroxychloroquine: Comment: Eye exam okay 03/2023 Code(s): Z79.899 - Other termite treater helper (current) drug therapy Category: Medical Plan: Discussed risk of retinopathy associated with hydroxychloroquine. Patient was evaluated by shipfitter helper and cleared to tissue with hydroxychloroquine 03/2023 (3) Primary osteoarthritis of right knee: Code(s): M17.11 - Unilateral primary osteoarthritis, right knee Category: Medical Plan: Used to get cortisone injections right knee every few months by her PCP with long-lasting relief, last injection only last a few weeks to 1 month, she received gel injection by Orthopedics about a week ago. Plan I spent 25 minutes reviewing patient's chart, evaluating patient, counseling patient & her and documenting in the chart Orders: Orders C Reactive Protein 4 Months M05.79 - Rheumatoid arthritis with rheumatoid factor of multiple sites without organ or systems involvement, Z79.899 - Other intermediate (current) drug therapy Complete Blood Count Auto Diff 4 Months M05.79 - Rheumatoid arthritis with rheumatoid factor of multiple sites without organ or systems involvement, Z79.899 - Other termite treater helper (current) drug therapy Comprehensive Met. Panel 4 Months M05.79 - Rheumatoid arthritis with rheumatoid factor of multiple sites without organ or systems involvement, Z79.899 - Other intermediate (current) drug therapy Erythrocyte Sedimentation Rate 4 Months M05.79 - Rheumatoid arthritis with rheumatoid factor of multiple sites without organ or systems involvement, Z79.899 - Other termite treater helper (current) drug therapy Coding Level of Care Code Est Pt Level 4 (30785) Diagnoses Rheumatoid arthritis involving multiple sites with positive rheumatoid factor M05.79 Rheumatoid arthritis location: multiple sites Rheumatoid factor presence: with rheumatoid factor Long-term use of hydroxychloroquine Z79.899 Primary osteoarthritis of right knee M17.11
== END 2023-08-14 14:55 | disposition home or self-care (01) ==
PROVIDERS: PCP Student in an Organized Health Care Education/Training Program; Visit Provider Student in an Organized Health Care Education/Training Program
DX: M05.79 Rheumatoid arthritis with rheumatoid factor of multiple sites without organ or systems involvement (principal); Z79.899 Other long term (current) drug therapy; M17.11 Unilateral primary osteoarthritis, right knee
CPT/HCPCS: 99214

== ENCOUNTER → 2023-08-14 14:16 | Outpatient (BNVA) | payer OTHER, SELFPAY | PROVIDERS: PCP Student in an Organized Health Care Education/Training Program; Visit Provider Student in an Organized Health Care Education/Training Program ==

== ENCOUNTER 2023-12-17 16:40 | Outpatient (REF) | payer OTHER, SELFPAY ==
[2023-12-17 17:00] LABS: MANUAL DIFF FLAG NO
[2023-12-17 17:08] LABS: Basophils Percent Auto 0.5 % (0-2); Eosinophils Absolute Auto 0.1 X10*3/uL (0.0-0.4); Eosinophils Percent Auto 0.8 % (0-4); Hematocrit 39.3 % (37.0-47.0); Hemoglobin 12.3 g/dl (12.0-16.0); Imm Gran Abs Auto 0.02 X10*3/uL (0.00-0.03); Imm Gran Pct Auto 0.3 % (0.0-0.4); Lymphocytes Absolute Auto 2.3 X10*3/uL (1.2-4.9); Lymphocytes Percent Auto 37.9 % (20-40); Mean Corpuscular HGB Conc 31.3 g/dl (31.0-35.0); Mean Corpuscular Hemoglobin 22.2 pg (27.0-33.0); Mean Corpuscular Volume 70.8 fL (80.0-98.0); Mean Platelet Volume 9.4 fL (9.4-12.3); Monocytes Absolute Auto 0.4 X10*3/uL (0.1-1.2); Monocytes Percent Auto 6.1 % (2-11); Neutrophils Absolute Auto 3.3 x10*3/uL (2.0-8.3); Neutrophils Percent Auto 54.4 % (45-73); Platelet Count 312 X10*3/uL (160-400); Red Blood Count 5.55 X10*6/uL (4.20-5.50); Red Cell Distribution Width 15.9 % (11.0-16.0); White Blood Count 6.1 X10*3/uL (4.8-10.8)
[2023-12-17 17:37] LABS: Alanine Aminotransferase 25 U/L (0-31); Albumin Level 4.1 g/dL (3.5-5.0); Alkaline Phosphatase 109 U/L (39-117); Anion Gap 11 (12-20); Aspartate Amino Transferase 28 U/L (5-31); Bilirubin Total 0.3 mg/dL (0.0-1.0); Blood Urea Nitrogen 10 mg/dL (9-16); C Reactive Protein 0.36 mg/dL (< or = 0.50); Calcium 9.9 mg/dL (8.4-10.2); Carbon Dioxide 28 mmol/L (22-29); Chloride 108 mmol/L (96-108); Estimated Glomerular Filt Rate > 60; Glucose Random 83 mg/dL (60-115); Potassium 3.8 mmol/L (3.3-5.1); Sodium 143 mmol/L (135-145); Total Protein 7.2 g/dL (6.5-8.0)
[2023-12-17 17:52] LABS: Erythrocyte Sedimentation Rate 14 MM/HR (0-20)
== END 2023-12-17 16:41 | disposition home or self-care (01) ==
LOC: HO.LAB 16:40
PROVIDERS: PCP Student in an Organized Health Care Education/Training Program; Visit Provider Student in an Organized Health Care Education/Training Program
DX: M05.79 Rheumatoid arthritis with rheumatoid factor of multiple sites without organ or systems involvement (principal); Z79.899 Other long term (current) drug therapy
CPT/HCPCS: 36415; 80053; 85025; 85652; 86140

== ENCOUNTER 2023-12-19 15:38 | Outpatient (AMB) | payer OTHER, SELFPAY ==
[2023-12-19 15:45] VITALS: BP 126/77; PULSE 67; O2SAT 97; BMI 48.0
--- NOTE | 2023-12-19 15:45 | A.OFFVIS_ITS ---
Vital Signs 12/19/23 15:45 Height 5 ft 3 in Weight 270 lb 11.642 oz BMI 48.0 BP 126/77 Blood Pressure Location Lt brachial Position Sitting Pulse 67 Pulse Source Pulse Oximeter Pulse Oximetry (%) 97 Oxygen Delivery Method Room Air Intake Visit Reasons: RA/lm Intake Note: Patient last seen by Doctor Kyle Garcia on 08/14/23. Presents today for RA follow up and test results. Allergies methotrexate Adverse Reaction (Intermediate, Verified 05/30/23 12:37) Fatigued Medication List - Last Reconciled 12/19/23 by Kyle Garcia MD acetaminophen (Tylenol Extra Strength) 500 mg PO Q6H PRN famotidine 40 mg PO DAILY hydroxychloroquine 200 mg PO BID oxycodone-acetaminophen 5-325 mg tabs PO HPI Comments Details: This is a 58-year-old female with seropositive RA who presents for follow-up. She is on hydroxychloroquine 200 mg Twice daily. She states that she is doing reasonably well overall. She states that she has bilateral shoulder pain, slightly worse on the right. She states that it is chronic and not very significant. She had gel injection in her knee in July and felt that it was helpful. She is doing well otherwise. Initial history: This is a 56-year-old female with a past medical history of morbid obesity presents for evaluation of multiple joint pain and swelling. The condition started 1 month ago with abrupt onset of right knee pain and swelling, the pain then shifts to another joint such as left shoulder, elbows, wrists, other knee. She would continue to have pain in the initial joint but the pain would be less severe and the severity would be in another joint. Today the most painful joints are the right knee , right right shoulder and right wrist. Pain is improved with Tylenol. Patient is unable to take NSAIDs due to history of esophagitis. Patient went to the ER and was prescribed lidocaine patches which did not help. She has a prescription for oxycodone which she previously takes d ue to painful menstrual periods. (? Adenomyosis) she currently takes the oxycodone for the joint pain which does take the edge off. In October patient had a dental infection, she received multiple courses of amoxicillin. She eventually had a root canal. Currently she does not have any dental symptoms. She denies any fevers, weight loss, skin rashes, Raynaud's. There is no history of DVT/PE. 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 Female Reproductive History Menstrual Age of Menarche: 12 Review of Systems Musc Reports arthralgias and Reports stiffness Physical Exam Vital Signs: Last Vital Signs Pulse 67 12/19/23 15:45 BP 126/77 12/19/23 15:45 Pulse Ox 97 12/19/23 15:45 Oxygen Delivery Method Room Air 12/19/23 15:45 BMI result Body Mass Index 48.0 Const General: cooperative, healthy appearing, comfortable and acute distress mild Nutritional Appearance: obese morbidly obese Orientation/consciousness: patient oriented x3 Limitations: no limitations HEENT Head: Yes normocephalic and Yes atraumatic Mouth: moist mucous membranes Resp Effort & Inspection: normal respiratory effort and able to speak in complete sentences Neuro General: patient oriented x3 Extrem Other: No active synovitis right hand and wrist Able to fully abduct both shoulders but there is some stiffness Positive empty can test on the left Negative Speed's test bilaterally Negative empty can test on the left Right knee without warmth No pain with full flexion and extension No ankle swelling or tenderness bilaterally Bilateral bunions Negative MTP squeeze test Assessment & Plan Assessment & Plan (1) Rheumatoid arthritis: Comment: +RF+++CCP diagnosed 01/2022 Methotrexate started 03/2022 effective DC 10/17 due to transaminitis, fatigue, GI upset HCQ 01/2023 effective Code(s): M06.9 - Rheumatoid arthritis, unspecified Category: Medical Qualifiers: Rheumatoid arthritis location: multiple sites Rheumatoid factor presence: with rheumatoid factor Qualified Code(s): M05.79 - Rheumatoid arthritis with rheumatoid factor of multiple sites without organ or systems involvement Plan: This is a 58-year-old female with seropositive RA who presents for follow-up. She is on hydroxychloroquine 200 mg Twice daily. Doing quite well with no active synovitis. Inflammatory markers normal Continue with hydroxychloroquine 200 mg Twice daily Labs before next visit in 6 months (2) Long-term use of hydroxychloroquine: Comment: Eye exam okay 03/2023 Code(s): Z79.899 - Other exterminator helper termite (current) drug therapy Category: Medical Plan: Discussed risk of retinopathy associated with hydroxychloroquine. Patient was evaluated by machine fur cleaner and cleared to tissue with hydroxychloroquine 03/2023. Continue to follow-up regularly with machine fur cleaner (3) Primary osteoarthritis of right knee: Code(s): M17.11 - Unilateral primary osteoarthritis, right knee Category: Medical Plan: Used to get cortisone injections by PCP which lost their efficacy after some time. She received a gel shot by her PCP 07/2023. She is actually better on exam today. I think the gel shot was helpful (4) Right rotator cuff tendinitis: Code(s): M75.81 - Other shoulder lesions, right shoulder Category: Medical Plan: Provided patient with a printout of home exercise Plan I spent 25 minutes reviewing patient's chart, evaluating patient, ordering diagnostic workup counseling patient and documenting in the chart Orders: Orders Complete Blood Count Auto Diff 6 Months M05.79 - Rheumatoid arthritis with rheumatoid factor of multiple sites without organ or systems involvement, Z79.899 - Other exterminator helper termite (current) drug therapy Comprehensive Met. Panel 6 Months M05.79 - Rheumatoid arthritis with rheumatoid factor of multiple sites without organ or systems involvement, Z79.899 - Other exterminator helper termite (current) drug therapy Erythrocyte Sedimentation Rate 6 Months M05.79 - Rheumatoid arthritis with rheumatoid factor of multiple sites without organ or systems involvement, Z79.899 - Other exterminator helper termite (current) drug therapy C Reactive Protein 6 Months M05.79 - Rheumatoid arthritis with rheumatoid factor of multiple sites without organ or systems involvement, Z79.899 - Other fpc (current) drug therapy Coding Level of Care Code Est Pt Level 4 (41627) Complex EM visit Add On G2211 Diagnoses Rheumatoid arthritis involving multiple sites with positive rheumatoid factor M05.79 Rheumatoid arthritis location: multiple sites Rheumatoid factor presence: with rheumatoid factor Long-term use of hydroxychloroquine Z79.899 Primary osteoarthritis of right knee M17.11 Right rotator cuff tendinitis M75.81
== END 2023-12-19 16:03 | disposition home or self-care (01) ==
PROVIDERS: PCP Student in an Organized Health Care Education/Training Program; Visit Provider Student in an Organized Health Care Education/Training Program
DX: M05.79 Rheumatoid arthritis with rheumatoid factor of multiple sites without organ or systems involvement (principal); Z79.899 Other long term (current) drug therapy; M17.11 Unilateral primary osteoarthritis, right knee; M75.81 Other shoulder lesions, right shoulder
CPT/HCPCS: 99214

== ENCOUNTER → 2023-12-19 15:38 | Outpatient (BNVA) | payer OTHER, SELFPAY | PROVIDERS: PCP Student in an Organized Health Care Education/Training Program; Visit Provider Student in an Organized Health Care Education/Training Program ==

== ENCOUNTER 2024-03-20 16:06 | Outpatient (REF) | payer OTHER, SELFPAY ==
--- OUTSIDE RECORDS SUMMARY | 2024-03-20 16:41 | XMS_ITS | Encounter Summary ---
Author Organization [employer] Address [address] [facility] [address] [place] [address] Care Team Providers Care Economist Research Assistant Name Role Phone Lissette Marte MD Primary Care Provider [phone] Reason for Visit * Reason Onset Date Comments Med Refill 09/02/2023 Encounter Details Date Type Department Care Team (Late st Contact Info) Description 09/02/2023 Telephone [facility] [address] [place] [address] Lissette Marte MD [address] [place] [address] Med Refill Social History Tobacco Use Types Packs/Day Years Used Date Smoking Tobacco: Never Passive Smoke Exposure: Never Smokeless Tobacco: Never Alcohol Use Standard Drinks/Week Comments Never 0 (1 standard drink = 0.6 oz pur e alcohol) Comments No Sex and Gender Information Value Date Recorded Sex Assigned at Female 12/25/2021 10:15 AM EDT Legal Sex Female 10:15 AM EDT Gender Identity Female 12/25/2021 10:15 AM EDT Sexual Orientation Straight 12/25/2021 10 :15 AM EDT documented as of this encounter Miscellaneous Notes * Telephone Encounter - Renata Woods - 09/02/2023 12:30 PM EDT TC from pt requesting medication refill. Medications needing refill : oxyCODONE-acetaminophen (Percocet) 5-325 MG tablet To be sent to: [id number] - [place], [place] - [address] [facility] documented in this encounter Plan of Treatment Upcoming Encounters Date Type Department Care Team (Late st Contact Info) Description 05/25/2024 10:00 AM EDT Telemedicine [facility] [address] [place] [address] Nahed Estrada, RN [address] [place] [address] documented as of this encounter Visit Diagnoses Not on filedocumented in this encounter Care Teams Economist Research Assistant Relationship Specialty Start Date End Date Lissette Marte MD [address] [place] [id number] PCP - General Family Medicine 03/12/19 documented as of this encounter
--- OUTSIDE RECORDS SUMMARY | 2024-03-20 16:41 | XMS_ITS | Encounter Summary ---
Author Organization [employer] Address [address] [place] [address] Care Team Providers Care Press Setup Operator Name Role Phone Lissette Marte MD Primary Care Provider [phone] Reason for Visit * Reason Onset Date Comments status 02/12/2022 Referral 02/13/2022 Encounter Details Date Type Department Care Team ([facility] st Contact Info) Description 02/12/2022 Telephone [facility] [address] [place] [address] Lissette Marte MD [address] [place] [address] status ; Referral Social History Tobacco Use Types Packs/Day Years Used Date Smoking Tobacco: Never Passive Smoke Exposure: Never Smokeless Tobacco: Never Alcohol Use Standard Drinks/Week Comments Never 0 (1 standard drink = 0.6 oz pur e alcohol) Comments Unknown Sex and Gender Information Value Date Recorded Sex Assigned at Female 12/25/2021 10:15 AM EDT Legal Sex Female 10:15 AM EDT Gender Identity Female 12/25/2021 10:15 AM EDT Sexual Orientation Straight 12/25/2021 10 :15 AM EDT COVID-19 Exposure Response Date Recorded In the last 10 days, have yo u been in contact with someone who was confirmed or suspected to have Coronavirus/COVID-19? No / Unsure 02/05/2022 3:16 PM EST documented as of this encounter Miscellaneous Notes * Telephone Encounter - Justice Castillo RN - 02/13/2022 10:23 AM EST Please see message below and follow up with pt. Thank you. * Telephone Encounter - Mei Grant - 02/13/2022 10:07 AM EST Tc from patient calling in regards to referral for Rheumatology. Advertising Layout Worker advised of message below, patient states she called the office and they stated they still don't have the correct notes. They advised patient they need the notes from the last visit from 01/26/22. * Telephone Encounter - Steve Valles - 02/12/2022 10:06 AM EST Tc from pt requesting status on referral for Rheumatology Please contact pt at [phone] documented in this encounter Plan of Treatment Upcoming Encounters Date Type Department Care Team (Late st Contact Info) Description 05/25/2024 10:00 AM EDT Telemedicine [facility] [address] [place] [address] Nahed Estrada, RN [address] [place] [address] documented as of this encounter Visit Diagnoses Not on filedocumented in this encounter Care Teams Press Setup Operator Relationship Specialty Start Date End Date Lissette Marte MD [address] [place] [id number] PCP - General Family Medicine 03/12/19 documented as of this encounter
--- OUTSIDE RECORDS SUMMARY | 2024-03-20 16:41 | XMS_ITS | Clinical Summary ---
Author Organization [employer] Address [address] [facility] 7t [place] [address] Care Team Providers Care Tobacco Dipper Name Role Phone Lissette Marte MD Primary Care Provider [phone] Allergies Active Allergy Reactions Criticality Noted Date Comments Methotrexate High 05/30/2023 Other Reaction(s): Fatigued GI upset transaminitis Medications naloxone (Narcan) 4 mg/0.1 mL nasal spray Administer 0.1 mL into affected nostril(s). 11/14/19 22 Active acetaminophen (Tylenol) 500 MG tablet Take 1 tablet by mouth every 8 (eight) hours. 09/27/19 22 Active famotidine (Pepcid) 40 MG tablet 02/24/20 22 Active folic acid (Folvite) 1 MG tablet Take 1,000 mcg by mouth in the morning. 04/05/19 23 Active bacitracin-poly myxin b (Polysporin) ointmentIndicat ions:Toe pain, bilateral,Callu s Apply topically 2 times daily. 15 g 05/01/19 23 Active betamethasone, augmented, (Diprolene) 0.05 % lotionIndicatio ns:Androgenetic alopecia Apply topically 2 times daily. 60 mL 3 08/06/19 24 Active ketoconazole (Nizoral) 2 % shampooIndicati ons:Dandruff Apply topically 2 (two) times a week. 120 mL 11 08/08/19 24 Active minoxidil (Loniten) 2.5 MG tabletIndicatio ns:Androgenetic alopecia Take 1 tablet (2.5 mg) by mouth Once per day. 30 tablet 11 08/06/19 24 025 Active minoxidil (Loniten) 2.5 MG tabletIndicatio ns:Androgenetic alopecia,Elevat ed blood pressure reading Take 2 tablets (5 mg) by mouth Once per day. 60 tablet 01/07/20 24 025 Active meloxicam (Mobic) 15 MG tabletIndicatio ns:Arthritis of right knee Take 1 tablet (15 mg) by mouth Once per day. 30 tablet 02/06/20 24 025 Active lisinopril 5 MG tabletIndicatio ns:Primary hypertension Take 1 tablet (5 mg) by mouth Once per day. 30 tablet 02/06/20 24 025 Active Tirzepatide-Sander ght Management (Zepbound) 2.5 MG/0.5ML solution auto-injector Inject 0.5 mL (2.5 mg) under the skin 1 (one) time per week. 2 mL 02/06/20 24 025 Active oxyCODONE-aceta minophen (Percocet) 5-325 MG tabletIndicatio ns:Polyarthralg ia Take 1 tablet by mouth every 12 (twelve) hours. 7 tablet 02/27/19 25 Active oxyCODONE-aceta minophen (Percocet) 5-325 MG tabletIndicatio ns:Polyarthralg ia Take 1 tablet by mouth every 12 (twelve) hours. 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 Timing less then 6 weeks. Will send pending labs and per patient request will refer to rheumatology. Recommended followup with PCP Uterine leiomyoma 06/04/2012 Obesity 08/31/2011 Resolved Problems Problem Noted Date Diagnosed Date Resolved Date Right lower quadrant pain 06/09/2013 Encounters Date Type Department Care Team Description 03/11/2024 Telephone [facility] [address] [facility] [place] [address] Nahed Estrada RN 03/09/2024 11:00 AM EST Telemedicine [facility] [address] [place] [address] Nahed Estrada RN Back pain, unspecified back location, unspecified back pain laterality, unspecified chronicity 03/09/2024 Travel 02/27/2024 Refill [facility] [address] [place] [address] Lissette Marte MD Polyarthralgia 02/06/2024 9:30 AM EST Office Visit [facility] [address] [place] [address] Lissette Marte MD Primary hypertension (Primary Dx); Arthritis of right knee; Encounter for screening mammogram for breast cancer; Class 3 severe obesity due to excess calories with serious comorbidity and body mass index (BMI) of 45.0 to 49.9 in adult ([facility]) 02/06/2024 Telephone [facility] [address] [facility] [place] [address] Lissette Marte MD Prior Authorization 02/06/2024 Travel 01/21/2024 Refill [facility] [address] [place] [address] Lissette Marte MD Polyarthralgia 01/07/2024 10:15 AM EST Office Visit [facility] [address] [place] [address] Suni Smith MD Androgenetic alopecia (Primary Dx); Elevated blood pressure reading 01/07/2024 Travel 12/23/2023 10:00 AM EDT Telemedicine [facility] [address] [place] [address] Nahed Estrada RN Back pain, unspecified back location, unspecified back pain laterality, unspecified chronicity 12/23/2023 Refill [facility] [address] [place] [address] Nahed Estrada RN Polyarthralgia 12/23/2023 Travel from Last 3 Months Immunizations Name Administration Dates Next Due Influenza Injectable Quadriv alant Preservative Free IIV4 MDCK 12/01/2019 Influenza injectable quadriv alent IIV4 with preservative 01/22/2017 Influenza injectable quadriv alent preservative free 12/17/2022,03/14/2021,02/13/2019,2015 Influenza, Injectable, MDCK, preservative free 11/16/2014 Moderna Covid-19 Vaccine 12+ 02/21/2021,05/06/19 21,04/07/2020 TD (adult), 2 Lf tetanus tox oid, preservative free, adsorbed 01/22/2017 Tdap 03/17/2015 Social History Tobacco Use Types Packs/Day Years Used Date Smoking Tobacco: Never Passive Smoke Exposure: Never Smokeless Tobacco: Never Tobacco Cessation:Counseling Given: Not Answered Alcohol Use Standard Drinks/Week Comments Never 0 (1 standard drink = 0.6 oz pur e alcohol) Comments No Sex and Gender Information Value Date Recorded Sex Assigned at Female 12/25/2021 10:15 AM EDT Legal Sex Female 10:15 AM EDT Gender Identity Female 12/25/2021 10:15 AM EDT Sexual Orientation Straight 12/25/2021 10 :15 AM EDT Last Filed Vital Signs Vital Sign Reading Time Taken Comments Blood Pressure 158/88 02/06/2024 9:47 AM EST Manually checked Pulse 87 02/06/2024 9:47 AM EST Temperature 36.8 ??C (98.2 ??F) 02/06/2024 9 :47 AM EST Respiratory Rate 16 02/06/2024 9:47 AM EST Oxygen Saturation 99% 01/07/2024 10: 30 AM EST Inhaled Oxygen Concentration - - Weight 124 kg (274 lb) 02/06/2024 9:47 AM EST Height 158.1 cm (5' 2.25 ) 02/06/2024 9 :47 AM EST Body Mass Index 49.71 02/06/2024 9:47 AM EST Plan of Treatment Upcoming Encounters Date Type Department Care Team (Late st Contact Info) Description 05/25/2024 10:00 AM EDT Telemedicine [facility] [address] [place] [address] Nahed Estrada, RN [address] [place] [address] Health Maintenance Due Date Last Done Comments CT Colonography 1966 Depression Screening 1966 FIT DNA/Cologuard 1966 FIT 1966 FOBT 1966 Lipid Panel 1966 SDOH Screening 1966 Sigmoidoscopy 1966 Alcohol/Substance Use Screening 1978 Hepatitis B Vaccines (1 of 3 - 19+ 3-dose series) 1985 Zoster Vaccines (1 of 2) 2016 Dental Oral Exam 07/11/2022 01/10/2022 Dental Prophylaxis 08/22/2022 02/20/2022 Mammogram 03/07/2023 03/07/2021, 11/26, 06/24/2018, Additional history exists Pap Smear 03/14/2024 03/14/2021 Colonoscopy 03/26/2024 03/26/2019 Colorectal Cancer Screening 03/26/2024 Dental X-Ray: Bitewings 10/09/2024 10/09/19 24, 01/10/2022, 08/31/2010 Dental X-Ray: Full Mouth 01/11/2025 01/10/2022 Tobacco Screening 02/05/2025 02/06/2024 Cervical Cancer Screening 03/14/2026 HPV/Cotest 03/14/2026 03/14/2021 DTaP/Tdap/Td Vaccines (3 - Td or Tdap) 01/22/2027 01/22/2017, 03/17/2015 RSV Patients and Patients Aged 60 years or older (1 - 1-dose 75+ series) 2041 HIV Screening Completed 02/27/2022 Hepatitis C Screening Completed 02/27/2022 COVID-19 Vaccine Completed 11/20/2023, , 05/05/2020, Additional history exists Influenza Vaccine Completed 11/20/2023, , 03/14/2021, Additional history exists HIB Vaccines Aged Out No longer eligi ble based on patient's age to complete this topic HPV Vaccines Aged Out No longer eligi ble based on patient's age to complete this topic Hepatitis A Vaccines Aged Out No long er eligible based on patient's age to complete this topic IPV Vaccines Aged Out No longer eligi ble based on patient's age to complete this topic Meningococcal Vaccine Aged Out No lisa mor eligible based on patient's age to complete this topic Pneumococcal Vaccine: Pediatrics (0 to 5 Years) and At-Risk Patients (6 to 64 Years) Aged Out No longer eligible based on patient's age to complete this topic RSV under 20 months Aged Out No longe r eligible based on patient's age to complete this topic Rotavirus Vaccines Aged Out No longer eligible based on patient's age to complete this topic Procedures Procedure Name Priority Date/Time Associated Diagnosis Comments BITEWING - SINGLE RADIOGRAPHIC IMAGE Routine 10/09/2023 3:30 PM EDT Open fracture of tooth, initial encounter HEPATITIS PANEL, GENERAL Routine 02/27/2022 4:44 PM EST HIV ANTIBODY/ANTIGEN ([place] DPH) Routine 02/27/2022 4:44 PM EST PROPHYLAXIS - ADULT Routine 02/20/2022 4 :45 PM EST Dental calculus THINPREP IMAGING PAP AND HPV MRNA E6/E7 WITH REFLEX TO HPV 16,18/45 Routine 03/14/2021 1:00 PM EST MAMMOGRAM GENERIC Routine 03/07/2021 4:2 7 PM EST HM COLONOSCOPY Routine 03/26/2019 from Last 3 Months or Most Recently Relevant to Health Maintenance Results * HIV Ab/Ag ([place] DPH) (02/27/2022 4:44 PM EST) HIV AB/AG Nonreactive Nonreactive [facility] Comment:HIV-1 p24 Ag and/or HIV-1/HIV-2 Ab not detected.A test result that is nonreactive does not exclude thepossibility of exposure to or infection with HIV-1 and/orHIV-2. Nonreactive results in this assay for individualswith prior exposure to HIV-1 and/or HIV-2 may be due toantigen and antibody levels that are below the limit ofdetection of this assay.The [employer] Machine Tender HIV Ag/Ab Combo assay result andsupplemental assay results should be interpreted inconjunction with the patient's clinical presentation,history and other laboratory results. If the results areinconsistent with clinical evidence, additional testing issuggested to confirm the result. 02/27/2022 4:44 PM EST 02/27/2022 4:44 PM EST [facility] External Provider LAB BLO OD ORDERABLES Final Result Performing Organization Address [facility] Co de Phone Number [facility] [address] [place] [phone] * Hepatitis Panel, General (02/27/2022 4:44 PM EST) Hepatitis A IgM Nonreactive Nonreactive [facility] Comment:IgM antibodies to FORDE V not detected; does not exclude earlyacute or recovered HAV infection. ~Hepatitis B Surface Antibody NONREACTIVE Nonreactive [facility] Comment:Nonreactive: < 8.00 mIU/mL Hepatitis B Core Antibody Nonreactive Nonreactive [facility] Hepatitis C Antibody Nonreactive Nonreactive [facility] Comment:Antibodies to HCV no t detected; does not exclude early acuteHCV infection. Hepatitis B Surface Ag Negative Negative [facility] 02/27/2022 4:44 PM EST 02/27/2022 4:44 PM EST [facility] External Provider LAB BLO OD ORDERABLES Final Result Performing Organization Address [facility] Co de Phone Number [facility] [address] [place] [phone] * THINPREP TIS PAP AND HPV mRNA E6/E7 WITH REFLEX TO HPV 16,18/45 (03/14/2021 1:00 PM EST) Clinical Information: None given [facility] COMMENT SEE COMMENT [facility] Comment: EXPLANATORY NOTE: ? The Pap is a screening test for cervical cancer. It is ?? not a diagnostic test and is subject to false negative ?? and false positive results. It is most reliable when a ?? satisfactory sample, regularly obtained, is submitted ?? with relevant clinical findings and history, and when ?? the Pap result is evaluated along with historic and ?? current clinical information. ?? COMMENT: This Pap test has been evaluated with computer assisted technology. [facility] Web Operations Administrator: SEE COMMENT [facility] Comment: DMM, CT(ASCP) CT screening location: [address] ??[id number] HPV nRNA E6/E7 Not Detected Not Detected [facility] Comment: Methodology: Soccer Coach-Mediated Amplification This assay detects E6/E7 viral messenger RNA (mRNA) from 14 high-risk HPV types (16,18,31,33,35,39,45,51,52,56,58,59,66,68). ? The analytical performance characteristics of this assay have been determined by [employer]. The modifications have not been cleared or approved by the FDA. This assay has been validated pursuant to the CLIA regulations and is used for clinical purposes. ?? For additional information, please refer to http://education.[employer]/faq/LHM543t5 (This link if provided for information/ educational purposes only.) Interpretation/Re sult: Negative for intraepithelial lesion or malignancy. [facility] LMP: 6M [facility] Prev. BX: NONE GIVEN [facility] Prev. PAP: NIL 09/2017 [facility] SOURCE: None given [facility] Statement Of Adequacy: SEE COMMENT [facility] Comment: Satisfactory for evaluation. Endocervical/transformation zone component absent. 03/14/2021 1:00 PM EST Suzi Felton CNM LAB PATHOLOGY ORDERABLES Final Result [facility] [address] [place] [address], * Mammography Report 1 (03/07/2021 4:27 PM EST) Anatomical Region Laterality Modality Breast Bilateral Mammography 03/07/2021 4:27 PM EST Narrative 03/08/2021 8:41 AM EST Refer to the Notes tab for result details [facility] Procedure: Mammography Report 1 Procedure Note ProviderIra, - 05/20/2022 Refer to the Notes tab for result details [facility] Procedure: Mammography Report 1 Lissette Marte MD IMG BI PROCEDURES Final Result * Colonoscopy (03/26/2019) Colonoscopy Normal Normal Historical Provider HEALTH MAINTENANCE Final Result from Last 3 Months or Most Recently Relevant to Health Maintenance [place] [address] [address] [place] [address] , [address] [address] DENTAL - [facility] Care Teams Tobacco Dipper Relationship Specialty Start Date End Date Lissette Marte MD [address] [place] [phone] PCP - General Family Medicine 03/12/19
--- OUTSIDE RECORDS SUMMARY | 2024-03-20 16:41 | XMS_ITS | Encounter Summary ---
Author Organization [employer] Address [address] [facility] 7t [place] [address] Care Team Providers Care Distribution District Supervisor Name Role Phone Lissette Marte MD Primary Care Provider [phone] Reason for Visit * Reason Onset Date Comments Med Refill 02/27/2024 Encounter Details Date Type Department Care Team (Late st Contact Info) Description 02/27/2024 Refill [facility] [address] [place] [address] Lissette Marte MD [address] [place] [address] Polyarthralgia Social History Tobacco Use Types Packs/Day Years [...] encounter Miscellaneous Notes * Telephone Encounter - Uriah Bishop - 02/27/2024 2:18 PM EST TC from pt requesting medication refill. Medications needing refill : oxyCODONE-acetaminophen (Percocet) 5-325 MG tablet To be sent to: [id number] - [place], [place] - [address] [facility] documented in this encounter Plan of Treatment Upcoming Encounters Date Type Department Care Team (Late st Contact Info) Description 05/25/2024 10:00 AM EDT Telemedicine [facility] [address] [place] [address] Nahed Estrada, RN [address] [place] [address] documented as of this encounter Visit Diagnoses Diagnosis Polyarthralgia Pain in joint, multiple sites documented in this encounter Care Teams Distribution District Supervisor Relationship Specialty Start Date End Date Lissette Marte MD [address] [place] [phone] PCP - General Family Medicine 03/12/19 documented as of this encounter
--- OUTSIDE RECORDS SUMMARY | 2024-03-20 16:41 | XMS_ITS | Encounter Summary ---
Author Organization [employer] Address [address] [facility] 7t [place] [address] Care Team Providers Care Concrete Mixer Truck Driver Name Role Phone Lissette Marte MD Primary Care Provider Reason for Visit * Reason Onset Date Comments Med Refill 02/16/2022 Encounter Details Date Type Department Care Team ([facility] st Contact Info) Description 02/16/2022 Telephone [facility] [address] [place] [address] Lissette Marte MD [address] [place] [address] Med Refill Social History Tobacco Use Types [...] suspected to have Coronavirus/COVID-19? No / Unsure 08/23/2022 1:30 PM EDT documented as of this encounter Miscellaneous Notes * Telephone Encounter - Nahid Cornell - 02/16/2022 9:47 AM EST Tc from pt requesting a med refill for oxycodone 5 mg Please contact at [phone] documented in this encounter Plan of Treatment Upcoming Encounters Date Type Department Care Team (Late st Contact Info) Description 05/25/2024 10:00 AM EDT Telemedicine [facility] [address] [place] [address] Nahed Estrada, RN [address] [place] [address] documented as of this encounter Visit Diagnoses Not on filedocumented in this encounter Care Teams Concrete Mixer Truck Driver Relationship Specialty Start Date End Date Lissette Marte MD [address] [place] [phone] PCP - General Family Medicine 03/12/19 documented as of this encounter
--- OUTSIDE RECORDS SUMMARY | 2024-03-20 16:41 | XMS_ITS | Encounter Summary ---
Author Organization [employer] Address [address] [facility] 7t [place] [address] Care Team Providers Care Water Team Leader Name Role Phone Lissette Marte MD Primary Care Provider [phone] Encounter Details Date Type Department Care Team (Latest Contact Info) Description 01/10/2022 Abstract [facility] CONVERSIONS Dental, Provider, DDS Social History Tobacco Use Types Packs/Day Years Used Date Smoking Tobacco: Never Assessed Comments Unknown Sex and Gender Information Value Date Recorded Sex Assigned at Female 12/25/2021 10:15 AM EDT Legal Sex Female 10:15 AM EDT Gender Identity Female 12/25/2021 10:15 AM EDT Sexual Orientation Straight 12/25/2021 10 :15 AM EDT documented as of this encounter Plan of Treatment Upcoming Encounters Date Type Department Care Team (Late st Contact Info) Description 05/25/2024 10:00 AM EDT Telemedicine [facility] [address] [place] [address] Nahed Estrada, RN [address] [place] [address] documented as of this encounter Visit Diagnoses Not on filedocumented in this encounter Care Teams Water Team Leader Relationship Specialty Start Date End Date Lissette Marte MD [address] [place] [address] PCP - General Family Medicine 03/12/19 documented as of this encounter
--- OUTSIDE RECORDS SUMMARY | 2024-03-20 16:41 | XMS_ITS | Encounter Summary ---
Author Organization [employer] Address [address] [facility] 7t [place] [address] Care Team Providers Care Journeyman Machinist Name Role Phone Lissette Marte MD Primary Care Provider [phone] Reason for Visit * Reason Onset Date Comments Med Refill 11/11/2023 Encounter Details Date Type Department Care Team (Late st Contact Info) Description 11/11/2023 Telephone [facility] [address] [place] [address] Lissette Marte MD [address] [place] [address] Med Refill Social History Tobacco Use Types [...] encounter Miscellaneous Notes * Telephone Encounter - Phong Gao - 11/11/2023 11:59 AM EDT TC from pt requesting medication refill. Medications needing refill : oxyCODONE-acetaminophen (Percocet) 5-325 MG tablet To be sent to: [id number] - [place], [place] - [address] [facility] documented in this encounter Plan of Treatment Upcoming Encounters Date Type Department Care Team (Late st Contact Info) Description 05/25/2024 10:00 AM EDT Telemedicine [facility] [address] [place] [address] Nahed Estrada, RN [address] [place] [address] documented as of this encounter Visit Diagnoses Not on filedocumented in this encounter Care Teams Journeyman Machinist Relationship Specialty Start Date End Date Lissette Marte MD [address] [place] [id number] PCP - General Family Medicine 03/12/19 documented as of this encounter
--- OUTSIDE RECORDS SUMMARY | 2024-03-20 16:41 | XMS_ITS | Encounter Summary ---
Author Organization [employer] Address 75 [facility] 7t [place] [address] Care Team Providers Care Rehabilitation Team Lead Name Role Phone Lissette Marte MD Primary Care Provider [phone] Encounter Details Date Type Department Care Team ([facility] Contact Info) Description 03/11/2024 Telephone [facility] [address] [place], [place] [phone] Nahed Estrada RN [address] [place], [place] [phone] Social History Tobacco Use Types Packs/Day Years [...] encounter Miscellaneous Notes * Telephone Encounter - Lissette Marte MD - 03/11/2024 4:02 PM EST yes * Telephone Encounter - Nahed Estrada RN - 03/11/2024 9:43 AM EST .What DIRECTOR OF AUDIOLOGY Tier would you like this patient to be? I recommend Tier 3, please let me know if you agree or would rather patient be in another DIRECTOR OF AUDIOLOGY Tier. Are you ok with DIRECTOR OF AUDIOLOGY Televisit? Tier 1 = HIGH RISK, Monthly DIRECTOR OF AUDIOLOGY visits Tier 2 = MODerate RISK, Q3 Month visits Tier 3 = LOW RISK = Q4-6 month visits documented in this encounter Plan of Treatment Upcoming Encounters Date Type Department Care Team ([facility] st Contact Info) Description 05/25/2024 10:00 AM EDT Telemedicine [facility] [address] [place] [address] Nahed Estrada, KATHY [address] [place] [address] documented as of this encounter Visit Diagnoses Not on filedocumented in this encounter Care Teams Rehabilitation Team Lead Relationship Specialty Start Date End Date Lissette Marte MD [address] [place] [phone] PCP - General Family Medicine 03/12/19 documented as of this encounter
--- OUTSIDE RECORDS SUMMARY | 2024-03-20 16:41 | XMS_ITS | Encounter Summary ---
Author Organization [employer] Address [address] [facility] 7t [place] [address] Care Team Providers Care Jump Roll Operator Name Role Phone Lissette Marte MD Primary Care Provider [phone] Encounter Details Date Type Department Care Team (Latest Contact Info) Description 03/09/2024 Travel Social History Tobacco Use Types Packs/Day Years [...] Info) Description 05/25/2024 10:00 AM EDT Telemedicine [facility] [address] [place] [address] Nahed Estrada, KATHY [address] [place] [address] documented as of this encounter Visit Diagnoses Not on filedocumented in this encounter Care Teams Jump Roll Operator Relationship Specialty Start Date End Date Lissette Marte MD [address] [place] [address] PCP - General Family Medicine 03/12/19 documented as of this encounter
--- OUTSIDE RECORDS SUMMARY | 2024-03-20 16:41 | XMS_ITS | Encounter Summary ---
Author Organization [employer] Address [address] [place] [address] Care Team Providers Care Early Childhood Lead Teacher Name Role Phone Lissette Marte MD Primary Care Provider [phone] Reason for Visit * Reason Comments controlled substance treatment Encounter Details Date Type Department Care Team ([facility] st Contact Info) Description 03/09/2024 11:00 AM EST Telemedicine [facility] [address] [place] [address] Nahed Estrada, RN [address] [place] [address] Back pain, unspecified back location, unspecified back pain laterality, unspecified chronicity Social History Tobacco Use Types Packs/Day Years [...] AM EDT documented as of this encounter Progress Notes * Nahed Estrada RN - 03/09/2024 11:00 AM EST S. DIRECTOR OF PROMOTIONS Televisit. Patient is taking Percocet 5-325mg bid PRN for abdominal, painful menstrual periods/ joint pain, qty of 7. States has been taking medications as prescribed. States took last dose about week/half ago. Patient states med. provides about 70% pain relief when taken. States has been having increased joint pain; pt f/u with rheumatology and [facility]. Patient states takes OTC Motrin PRN with very minimal relief. Reports no adverse reactions. Denies smoking, ETOH or illicit drug use. Patient also uses Lidocaine patches and Tylenol PRN. Last PCP f/u 02/05/25.No questions/ concerns at this time. O: VSS. DIRECTOR OF PROMOTIONS tier 4. ROPEWALK ROPE MAKER checked on 03/09/24. Pill count performed over the phone, patient states shehas 2 pills left, none expected. Medications are not being overused. A: Chronic opioid use r/t chronic pain. P: Patient to cont. with current pain medication regimen as needed and take medication only as directed. f/u for next DIRECTOR OF PROMOTIONS NV scheduled for 05/25/24 @10am. F/u sooner PRN. Patient verbalized understanding and agreed to plan. documented in this encounter Plan of Treatment Upcoming Encounters Date Type Department Care Team (Late st Contact Info) Description 05/25/2024 10:00 AM EDT Telemedicine [facility] MED [facility] P[facility] [address] [place] [address] Nahed Estrada, KATHY [address] [place] [address] documented as of this encounter Visit Diagnoses Diagnosis Back pain, unspecified back location, unspecified back pain laterality, unspecified chronicity documented in this encounter Care Teams Early Childhood Lead Teacher Relationship Specialty Start Date End Date Lissette Marte MD [address] [place] [id number] PCP - General Family Medicine 03/12/19 documented as of this encounter
== END 2024-03-20 16:07 | disposition home or self-care (01) ==
LOC: HO.MAMMO 16:06
PROVIDERS: Visit Provider Student in an Organized Health Care Education/Training Program
DX: Z12.31 Encounter for screening mammogram for malignant neoplasm of breast (principal)
CPT/HCPCS: 77063; 77067

== ENCOUNTER → 2024-03-20 16:08 | Outpatient (BNV) | payer OTHER, SELFPAY | PROVIDERS: Visit Provider Internal Medicine | DX: Z12.31 Encounter for screening mammogram for malignant neoplasm of breast (principal) | CPT/HCPCS: 77063; 77067 ==

== ENCOUNTER 2024-06-18 14:58 | Outpatient (AMB) | payer OTHER, SELFPAY ==
[2024-06-18 15:03] VITALS: BP 126/72; PULSE 75; O2SAT 98; BMI 49.5
--- NOTE | 2024-06-18 15:03 | A.OFFVIS_ITS ---
Vital Signs 06/18/24 15:03 Height 5 ft 3 in Weight 279 lb 8.738 oz BMI 49.5 BP 126/72 Blood Pressure Location Lt brachial Position Sitting Pulse 75 Pulse Source Pulse Oximeter Pulse Oximetry (%) 98 Oxygen Delivery Method Room Air Intake Visit Reasons: RA Intake Note: Patient last seen by Doctor Kyle Garcia on 12/19/23. Presents today for RA follow up and test results. Allergies methotrexate Adverse Reaction (Intermediate, Verified 06/18/24 15:06) Fatigued HPI Comments Details: Patient is a 59-year-old female with osteoarthritis of the right knee and seropositive rheumatoid arthritis here today for follow up Interval History: Patient last seen 12/19/[address] Garcia. At that time she was following up for her seropositive rheumatoid arthritis on hydroxychloroquine 200 mg twice a day and doing reasonably well overall. She was complaining of bilateral shoulder pain right worse than left and was status post gel injection 07/2023 in her right knee which was helpful. Today, Patient is doing well overall: Still has good days and bad days Complaining of bilateral knee pain R>L, states that the gel injections wore off after about 5-6 months. Currently having a hard time with walking. Rheumatologic History: Seropositive rheumatoid arthritis +RF+++CCP diagnosed 01/2022 Methotrexate started 03/2022 effective DC 10/17 due to transaminitis, fatigue, GI upset HCQ 01/2023 effective Initial history: This is a 56-year-old female with a past medical history of morbid obesity presents for evaluation of multiple joint pain and swelling. The condition started 1 month ago with abrupt onset of right knee pain and swelling, the pain then shifts to another joint such as left shoulder, elbows, wrists, other knee. She would continue to have pain in the initial joint but the pain would be less severe and the severity would be in another joint. Today the most painful joints are the right knee , right right shoulder and right wrist. Pain is improved with Tylenol. Patient is unable to take NSAIDs due to history of esophagitis. Patient went to the ER and was prescribed lidocaine patches which did not help. She has a prescription for oxycodone which she previously takes due to painful menstrual periods. (? Adenomyosis) she currently takes the oxycodone for the joint pain which does take the edge off. In October patient had a dental infection, she received multiple courses of amoxicillin. She eventually had a root canal. Currently she does not have any dental symptoms. She denies any fevers, weight loss, skin rashes, Raynaud's. There is no history of DVT/PE. Current Rheumatology Medication(s): Hydroxychloroquine 200 mg b.i.d. 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 Female Reproductive History Menstrual Age of Menarche: 12 Review of Systems Const Details: Review of Systems Constitutional: Denies fever, chills, weight loss ENT: Denies vision changes, eye pain or eye redness, dental caries, dry mouth GI: Denies nausea, vomiting, diarrhea, abdominal pain, change in BM Pulm: Denies SOB, NAPOLES, hemoptysis, wheezing Cards: Denies chest pain, palpitations Skin: Denies Raynaud's, rash, nail changes, photosensitivity, OIL PIPELINE OPERATOR: Denies headaches, weakness, paresthesias, recurrent falls MSK: as per HPI All other systems reviewed and are unremarkable except noted above Physical Exam Vital Signs: Last Vital Signs Pulse 75 06/18/24 15:03 BP 126/72 06/18/24 15:03 Pulse Ox 98 06/18/24 15:03 Oxygen Delivery Method Room Air 06/18/24 15:03 BMI result Body Mass Index 49.5 Vital signs reviewed Physical Examination CONSTITUITIONAL Patient alert and cooperative. Well appearing and in no apparent painful distress Mobidly obese HEENT Conjunctiva and sclera clear. ?Pupils equal round and reactive to light. ?No lymphadenopathy. ? CHEST/RESPIRATORY SYSTEM Normal respiratory effort and able to speak in complete sentences. ?Clear to auscultation bilaterally. ?No crackles, rales, rhonchi, wheezes heard. CARDIAC SYSTEM Regular rate and rhythm. ?S1 and S2 heard no murmurs. ?Radial pulses intact bilaterally MSK Hands: ?Able to make a fist. No synovitis noted to the MCPs, PIPs or DIPs. ?No tenderness to palpation of these joints. No deformities noted. ? Wrists: ?Full range of motion at the wrists without pain. ?No tenderness to palpation or synovitis noted to the wrists. Elbows: Full range of motion without pain. No tenderness, weakness, swelling, increased warmth or erythema. Shoulders: Full range of active range of motion without pain. No tenderness, weakness, swelling, increased warmth or erythema. Hips: Full range of motion without pain. Hip bursa: No tenderness to palpation Knees: ?Full range of motion. ?No tenderness, swelling, increased warmth or erythema.?Crepitations felt bilaterally Ankles: Full range of motion. ?No tenderness, swelling, increased warmth or erythema.? Feet: ?Negative squeeze test. ?No tenderness to palpation or swelling of the MTPs. Tender points:?No tenderness to palpation of the bilateral trapezius, supraspinatus, greater trochanters, anterior costochondral junctions, bilateral gluteal areas, bilateral suboccipital muscle insertions SKIN Skin intact without rashes. Office Procedures AMB Joint Injection/Aspiration Joint Injection/Aspiration Details: Procedure was explained to the patient and consent was obtained. ? The area of interest was identified and confirmed with patient. ?This was subsequently cleaned with chlorhexidine x3. ? The area was then anesthetized using ethyl chloride spray. 40 mg Kenalog with 1 cc 1% lidocaine was injected without issue. ?Minimal to no bleeding. ?Patient tolerated procedure. Primary Site: right knee Prep: site was prepped using aseptic technique and ethochloride spray was applied Injected: 40 mg of, Kenalog, with 1 mL of and 1% plain lidocaine Approach Used: anterior Procedure: The patient tolerated the procedure well Coding 33651 - Large joint Procedure code (CPT) selection complete AMB Joint Injection/Aspiration Joint Injection/Aspiration Details: Procedure was explained to the patient and consent was obtained. ? The area of interest was identified and confirmed with patient. ?This was subsequently cleaned with chlorhexidine x3. ? The area was then anesthetized using ethyl chloride spray. 40 mg Kenalog with 1 cc 1% lidocaine was injected without issue. ?Minimal to no bleeding. ?Patient tolerated procedure. Primary Site: left knee Prep: site was prepped using aseptic technique and ethochloride spray was applied Injected: 40 mg of, Kenalog, 1% plain lidocaine and in the joint Approach Used: anterior Procedure: The patient tolerated the procedure well Coding 13206 - Large joint Procedure code (CPT) selection complete Office Meds lidocaine (PF) 10 mg/mL (1 %) injection solution Performing Provider: Zee Rogers MD Performing Location: [facility] Administered by: Zee Rogers MD on 06/18/24 15:54 Dose Route Admin Location Dispensed Lot Number Expiration Date [facility] Work Measurement Engineer 1 mL Infiltration right knee 2 mL [id number] 05/26/26 61528-027-21 [employer] Kenalog 40 mg/mL suspension for injection Performing Provider: Zee Rogers MD Performing Location: [facility] Administered by: Zee Rogers MD on 06/18/24 15:54 Dose Route Admin Location Dispensed Lot Number Expiration Date [facility] Work Measurement Engineer 40 mg intra-articular right knee 1 mL [id number] 08/25/25 [address]-0 [employer] lidocaine (PF) 10 mg/mL (1 %) injection solution Performing Provider: Zee Rogers MD Performing Location: [facility] Administered by: Zee Rogers MD on 06/18/24 15:54 Dose Route Admin Location Dispensed Lot Number Expiration Date [facility] Work Measurement Engineer 1 mL Infiltration left knee 2 mL [id number] 05/26/26 26564-265-97 [employer] Kenalog 40 mg/mL suspension for injection Performing Provider: Zee Rogers MD Performing Location: [facility] Administered by: Zee Rogers MD on 06/18/24 15:54 Dose Route Admin Location Dispensed Lot Number Expiration Date [facility] Work Measurement Engineer 40 mg intra-articular left knee 1 mL [id number] 08/25/25 [address]-1 [employer] Results Reviewed Results Reviewed: Laboratory Tests 12/17/23 16:58 WBC 6.1 RBC 5.55 H Hgb 12.3 Hct 39.3 Plt Count 312 D ESR 14 Sodium 143 Potassium 3.8 Chloride 108 Carbon Dioxide 28 BUN 10 Creatinine 0.79 AST 28 ALT 25 Alkaline Phosphatase 109 C-Reactive Protein 0.36 Immunology labs 01/29/22 02/27/22 17:23 16:44 Rheumatoid Factor 46.6 H Cycl Citrul Peptide IgG >250 H BARBI Screen NEGATIVE Infectious serologies 02/27/22 16:44 Hepatitis A IgM Ab Nonreactive Hep Bs Antigen Negative Hep Bs Antibody NONREACTIVE Hep B Core Total Ab Nonreactive Hepatitis C Ab (EIA) Nonreactive HIV 1&2 Ab/P24 Ag 4thGn Nonreactive TB Test (T-Spot) Com Negative XR Bilateral Knees 01/2022 FINDINGS: Right Knee: Mild medial compartment joint space narrowing. Lateral patellofemoral compartment joint space narrowing. Tiny tricompartmental marginal osteophytes. Findings are slightly progressed when compared to the prior radiograph. No acute fracture or dislocation. No concerning lytic or blastic osseous lesion. No abnormal soft tissue calcification. No significant joint effusion. Left knee: Mild lateral patellofemoral compartment joint space. Small patellofemoral and tiny medial compartment marginal osteophytes. No acute fracture or dislocation. No concerning lytic or blastic osseous lesion. No abnormal soft tissue calcification. No significant joint effusion. IMPRESSION: RIGHT KNEE: Mild tricompartmental osteoarthritis, slightly progressed when compared to the prior radiographs. LEFT KNEE: Mild lateral and patellofemoral compartment osteoarthritis, slightly progressed when compared to the prior radiographs. Assessment & Plan Assessment & Plan (1) Rheumatoid arthritis: Comment: +RF+++CCP diagnosed 01/2022 Methotrexate started 03/2022 effective DC 10/17 due to transaminitis, fatigue, GI upset HCQ 01/2023 effective Code(s): M06.9 - Rheumatoid arthritis, unspecified Category: Medical Qualifiers: Rheumatoid arthritis location: multiple sites Rheumatoid factor presence: with rheumatoid factor Qualified Code(s): M05.79 - Rheumatoid arthritis with rheumatoid factor of multiple sites without organ or systems involvement Plan: #Seropositive RA Patient is a 59-year-old female with seropositive rheumatoid arthritis here today for follow up. Currently in remission from her rheumatoid arthritis. Plan - Hydroxychloroquine 200mg bid - RTC 4 months - labs before visit: CBC, CMP, ESR, CRP (2) Bilateral primary osteoarthritis of knee: Code(s): M17.0 - Bilateral primary osteoarthritis of knee Plan: #Bilateral Knee OA Patient with bilateral knee osteoarthritis. 2021 films show progression from 2017. Last gel injection July 2023 that lasted about 6 months. Given her significant knee complaints today we will give a steroid injection today and get insurance approval for Durolane injections which we can do at the next appointment Plan - s/p bilateral steroid injections to knees - [place] for durolane injections (3) Long-term use of hydroxychloroquine: Comment: Eye exam okay 03/2023 Code(s): Z79.899 - Other remote computer terminal operator (current) drug therapy Category: Medical Plan: #Long-term Use of Hydroxychloroquine Discussed with patient the risks and benefits of hydroxychloroquine in managing the rheumatic condition Benefits include: - Reduced pain, reduce mortality, maintenance of remission and reduction of flares Risks include: - GI upset, skin hyperpigmentation, retinal toxicity (especially after more than 5 years of use), myopathy Advised yearly ophthalmology visits Plan I spent 30 minutes reviewing the record and labs, taking a history, examining the patient, discussing the treatment plan, ordering diagnostic work up and docu menting in the medical record Orders: Orders AMB Joint Injection/Aspiration Today M17.0 - Bilateral primary osteoarthritis of knee AMB Joint Injection/Aspiration Today M17.0 - Bilateral primary osteoarthritis of knee Medications: New Kenalog (triamcinolone acetonide) 40 mg intra-articular ONCE 1 mL 0RF NS M17.0 - Bilateral primary osteoarthritis of knee Kenalog (triamcinolone acetonide) 40 mg intra-articular ONCE 1 mL 0RF NS M17.0 - Bilateral primary osteoarthritis of knee lidocaine (PF) 1 mL Infiltration ONCE 2 mL 0RF M17.0 - Bilateral primary osteoarthritis of knee lidocaine (PF) 1 mL Infiltration ONCE 2 mL 0RF M17.0 - Bilateral primary osteoarthritis of knee Coding Level of Care Code Est Pt Level 4 (46462) Complex EM visit Add On G2211 Diagnoses Rheumatoid arthritis involving multiple sites with positive rheumatoid factor M05.79 Rheumatoid arthritis location: multiple sites Rheumatoid factor presence: with rheumatoid factor Bilateral primary osteoarthritis of knee M17.0 Long-term use of hydroxychloroquine Z79.899 CPT Codes Coding - 33642 Large joint: 12050 - Large joint ([id number]) Coding - 48971 Large joint: 36019 - Large joint ([id number])
== END 2024-06-18 15:51 | disposition home or self-care (01) ==
LOC: HO.RHE 14:59
PROVIDERS: PCP Student in an Organized Health Care Education/Training Program; Visit Provider Student in an Organized Health Care Education/Training Program
DX: M05.79 Rheumatoid arthritis with rheumatoid factor of multiple sites without organ or systems involvement (principal); M17.0 Bilateral primary osteoarthritis of knee; Z79.899 Other long term (current) drug therapy
CPT/HCPCS: 20610; 99214

== ENCOUNTER → 2024-06-18 14:58 | Outpatient (BNVA) | payer OTHER, SELFPAY | PROVIDERS: PCP Student in an Organized Health Care Education/Training Program; Visit Provider Student in an Organized Health Care Education/Training Program | DX: M05.79 Rheumatoid arthritis with rheumatoid factor of multiple sites without organ or systems involvement (principal); M17.0 Bilateral primary osteoarthritis of knee; Z79.899 Other long term (current) drug therapy | CPT/HCPCS: 20610; J3300 ==

== ENCOUNTER 2024-06-23 08:41 | Outpatient (AMB) | payer OTHER, SELFPAY ==
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
[2024-06-23 08:51] VITALS: PULSE 72; RESP 14; O2SAT 99
== END 2024-06-23 09:14 | disposition home or self-care (01) ==
LOC: HO.RHE 08:41
PROVIDERS: PCP Student in an Organized Health Care Education/Training Program; Visit Provider Student in an Organized Health Care Education/Training Program
DX: T30.0 Burn of unspecified body region, unspecified degree (principal)
CPT/HCPCS: 99213

== ENCOUNTER → 2024-06-23 08:41 | Outpatient (BNVA) | payer OTHER, SELFPAY | PROVIDERS: PCP Student in an Organized Health Care Education/Training Program; Visit Provider Student in an Organized Health Care Education/Training Program ==

== ENCOUNTER 2024-11-02 12:17 | Outpatient (REF) | payer OTHER, SELFPAY ==
[2024-11-02 12:39] LABS: MANUAL DIFF FLAG NO
[2024-11-02 13:55] LABS: Hematocrit 42.1 % (37.0-47.0); Hemoglobin 12.9 g/dl (12.0-16.0); Imm Gran Abs Auto 0.03 X10*3/uL (0.00-0.03); Imm Gran Pct Auto 0.5 % (0.0-0.4); Lymphocytes Absolute Auto 1.9 X10*3/uL (1.2-4.9); Mean Corpuscular HGB Conc 30.6 g/dl (31.0-35.0); Mean Corpuscular Hemoglobin 22.1 pg (27.0-33.0); Mean Corpuscular Volume 72.2 fL (80.0-98.0); NRBC Abs Auto 0.000 X10*3/uL (0.0-0.012); NRBC Pct Auto 0.0 /100WBC (0.0-0.2); Platelet Count 240 X10*3/uL (160-400); Red Blood Count 5.83 X10*6/uL (4.20-5.50); White Blood Count 6.6 X10*3/uL (4.8-10.8)
[2024-11-02 14:00] LABS: Hemoglobin A1C 116.6185 umol/L; Total Hemoglobin (HGBA1C) 3358.5406 umol/L
[2024-11-02 14:39] LABS: Alanine Aminotransferase 227 U/L (0-31); Albumin Level 4.1 g/dL (3.5-5.0); Alkaline Phosphatase 308 U/L (39-117); Anion Gap 14 (12-20); Aspartate Amino Transferase 146 U/L (5-31); Blood Urea Nitrogen 11 mg/dL (9-16); Calcium 9.1 mg/dL (8.4-10.2); Carbon Dioxide 23 mmol/L (22-29); Chloride 110 mmol/L (96-108); Cholesterol 160 mg/dL (<200); Estimated Glomerular Filt Rate > 60; HDL Cholesterol 65 mg/dL (>40); Potassium 4.3 mmol/L (3.3-5.1); Sodium 143 mmol/L (135-145); Total Protein 7.3 g/dL (6.5-8.0); Triglycerides 51 mg/dL (<150)
--- OUTSIDE RECORDS SUMMARY | 2024-11-02 14:39 | XMS_ITS | Encounter Summary ---
Author Organization [employer] Address [address] [facility] [address] [place] [address] Care Team Providers Care Director Of Community Life Name Role Phone Lissette Marte MD Primary Care Provider Encounter Details Date Type Department Care Team (Late st Contact Info) Description 11/02/2024 Orders Only GENERIC EXTERNAL DATA DEPARTMENT Provider, Generic External Data Social History Tobacco Use Types Packs/Day Years Used Date Smoking Tobacco: Never Passive Smoke Exposure: Never Smokeless Tobacco: Never Alcohol Use Standard Drinks/Week Comments Never 0 (1 standard drink = 0.6 oz pur e alcohol) Housing Stability Answer Date Recorded What is your housing situation today? I have jillian jessica 06/30/[address] you li ve. Do you have problems with any of the following? None of the above 06/30/2024 Food Insecurity Answer Date Recorded Within the past 12 months, y ou worried that your food would run out before you got money to buy more: Never True 06/30/2024 Within the past 12 months,th e food you bought just didn't last and you didn't have enough money to get more: Never True 07/2024 Transportation Answer Date Recorded In the past 12 months, has l ack of transportation kept you from medical appts, meetings, work or from getting things needed for daily living? No 06/30/2024 Utilities Answer Date Recorded In the past 12 months, has t he electric, gas, oil or water company threatened to shut off services in your home? No 06/30/2024 Depression Answer Date Recorded Patient Health Questionnaire-2 Score 2 06/30/2024 Internet Access Answer Date Recorded Internet Access Q1 No 06/30/2024 Internet Access Q2 I do not want or need it 07/2024 Comments No Sex and Gender Information Value Date Recorded Sex Assigned at Female 12/25/2021 10:15 AM EDT Legal Sex Female 10:15 AM EDT Gender Identity Female 12/25/2021 10:15 AM EDT Sexual Orientation Straight 12/25/2021 10 :15 AM EDT documented as of this encounter Plan of Treatment Upcoming Encounters Date Type Department Care Team (Late st Contact Info) Description 12/14/2024 2:00 PM EDT Telemedicine [facility] [address] [place] [address] Nahed Estrada, RN [address] [place] [address] documented as of this encounter Procedures Procedure Name Priority Date/Time Associated Diagnosis Comments CBC WITH AUTO DIFFERENTIAL Routine 11/02/2024 12:38 PM EDT SED RATE BY MODIFIED WESTERGREN Routine 11/02/2024 12:38 PM EDT documented in this encounter Results * Sed Rate by Modified Westergren (11/02/2024 12:38 PM EDT) Erythrocyte Sedimentation Rate 17 0 - 20 MM/HR [facility] Comment:Patients with polycy themia and many hemoglobin abnormalitiesmay have depressed sed rates whereas patients with anemiamay have elevated sed rates. 11/02/2024 12:3 8 PM EDT 11/02/2024 12:38 PM EDT us Generic External Data Provider LAB BLOOD ORDERAB LES Final Result [facility] [address] [place] [address] [phone] * (ABNORMAL) CBC auto differential (11/02/2024 12:38 PM EDT) White Blood Count 6.6 4.8 - 10.8 X10*3/uL [facility] Red Blood Count 5.83(H) 4.20 - 5.50 X10*6/uL [facility] Hemoglobin 12.9 12.0 - 16.0 g/dl [facility] Hematocrit 42.1 37.0 - 47.0 % [facility] Mean Corpuscular Volume 72.2(L) 80.0 - 98.0 fL [facility] Mean Corpuscular Hemoglobin 22.1(L) 27.0 - 33.0 pg [facility] Mean Corpuscular HGB Conc 30.6(L) 31.0 - 35.0 g/dl [facility] Red Cell Distribution Width 17.2(H) 11.0 - 16.0 % [facility] Platelet Count 240 160 - 400 X10*3/uL [facility] Mean Platelet Volume 10.8 9.4 - 12.3 fL [facility] Neutrophils Percent Auto 63.7 45 - 73 % [facility] Imm Gran Pct Auto 0.5(H) 0.0 - 0.4 % [facility] Lymphocytes Percent Auto 28.4 20 - 40 % [facility] Monocytes Percent Auto 6.0 2 - 11 % [facility] Eosinophils Percent Auto 1.1 0 - 4 % [facility] Basophils Percent Auto 0.3 0 - 2 % [facility] NRBC Pct Auto 0.0 0.0 - 0.2 /100WBC [facility] Neutrophils Absolute Auto 4.2 2.0 - 8.3 x10*3/uL [facility] Imm Gran Abs Auto 0.03 0.00 - 0.03 X10*3/uL [facility] Lymphocytes Absolute Auto 1.9 1.2 - 4.9 X10*3/uL [facility] Monocytes Absolute Auto 0.4 0.1 - 1.2 X10*3/uL [facility] Eosinophils Absolute Auto 0.1 0.0 - 0.4 X10*3/uL [facility] Basophils Absolute Auto 0.0 0.0 - 0.2 X10*3/uL [facility] NRBC Abs Auto 0.000 0.0 - 0.012 X10*3/uL [facility] 11/02/2024 12:3 8 PM EDT 11/02/2024 12:38 PM EDT us Generic External Data Provider LAB BLOOD ORDERAB LES Final Result [facility] [address] [place] [address] [phone] documented in this encounter Visit Diagnoses Not on filedocumented in this encounter Care Teams Director Of Community Life Relationship Specialty Start Date End Date Lissette Marte MD [address] [place] [phone] PCP - General Family Medicine 03/12/19 documented as of this encounter
--- OUTSIDE RECORDS SUMMARY | 2024-11-02 14:39 | XMS_ITS | Encounter Summary ---
Author Organization [employer] Address [address] [facility] 7t [place] [address] Care Team Providers Care End Frazer Name Role Phone Lissette Marte MD Primary Care Provider [phone] Reason for Visit * Reason Onset Date Comments status 02/12/2022 Referral 02/13/2022 Encounter Details Date Type Department Care Team ([facility] st Contact Info) Description 02/12/2022 Telephone [facility] MED[facility] [address] [place] [address] Lissette Marte MD [address] [place] [address] status ; Referral Social History Tobacco Use [...] calling in regards to referral for Rheumatology. Paid Intern advised of message below, patient states she called the office and they stated they still don't have the correct notes. They advised patient they need the notes from the last visit from 01/26/22. * Telephone Encounter - Steve Valles - 02/12/2022 10:06 AM EST Tc from pt requesting status on referral for Rheumatology Please contact pt at [phone] documented in this encounter Plan of Treatment Upcoming Encounters Date Type Department Care Team (Late st Contact Info) Description 12/14/2024 2:00 PM EDT Telemedicine [facility] [address] [place] [address] Nahed Estrada, KATHY [address] [place] [address] documented as of this encounter Visit Diagnoses Not on filedocumented in this encounter Care Teams End Frazer Relationship Specialty Start Date End Date Lissette Marte MD [address] [place] [phone] PCP - General Family Medicine 03/12/19 documented as of this encounter
--- OUTSIDE RECORDS SUMMARY | 2024-11-02 14:39 | XMS_ITS | Encounter Summary ---
Author Organization [employer] Address [address] [facility] 7t [place] [address] Care Team Providers Care Cane Pusher Name Role Phone Lissette Marte MD Primary Care Provider [phone] Encounter Details Date Type Department Care Team (Latest Contact Info) Description 01/10/2022 Abstract [facility] CONVERSIONS Dental, Provider, DDS Social History [...] Info) Description 12/14/2024 2:00 PM EDT Telemedicine [facility] [address] [place] [address] Nahed Estrada, KATHY [address] [place], [place] documented as of this encounter Visit Diagnoses Not on filedocumented in this encounter Care Teams Cane Pusher Relationship Specialty Start Date End Date Lissette Marte MD [address] [place] [address] PCP - General Family Medicine 03/12/19 documented as of this encounter
--- OUTSIDE RECORDS SUMMARY | 2024-11-02 14:39 | XMS_ITS | Encounter Summary ---
Author Organization [employer] Address [address] [facility] 7t [place] [address] Care Team Providers Care Telegraph Lineman Name Role Phone Lissette Marte MD Primary Care Provider [phone] Reason for Visit * Reason Onset Date Comments Med Refill 09/02/2023 Encounter Details Date Type Department Care Team ([facility] st Contact Info) Description 09/02/2023 Telephone [facility] MEDICINE [address] [place] [address] Lissette Marte MD [address] [place] [address] Med Refill Social History Tobacco Use Types [...] 5-325 MG tablet To be sent to: [id number] - [place], [place] - [address] [facility] documented in this encounter Plan of Treatment Upcoming Encounters Date Type Department Care Team (Late st Contact Info) Description 12/14/2024 2:00 PM EDT Telemedicine [facility]ED[facility] [address] [place] [address] Nahed Estrada, RN [address] [place] [address] documented as of this encounter Visit Diagnoses Not on filedocumented in this encounter Care Teams Telegraph Lineman Relationship Specialty Start Date End Date Lissette Marte MD [address] [place] [phone] PCP - General Family Medicine 03/12/19 documented as of this encounter
--- OUTSIDE RECORDS SUMMARY | 2024-11-02 14:39 | XMS_ITS | Encounter Summary ---
Author Organization [employer] Address [address] [facility] 7t [place] [address] Care Team Providers Care Experience Planning Strategist Name Role Phone Lissette Marte MD Primary Care Provider [phone] Reason for Visit * Reason Onset Date Comments Med Refill 07/27/2024 Encounter Details Date Type Department Care Team ([facility] st Contact Info) Description 07/27/2024 Telephone [facility] [address] [place] [address] Lissette Marte MD [address] [place] [address] Med Refill Social History Tobacco Use Types Packs/Day Years Used Date Smoking Tobacco: Never Passive Smoke Exposure: Never Smokeless Tobacco: Never Alcohol Use Standard Drinks/Week Comments Never 0 (1 standard drink = 0.6 oz pur e alcohol) Housing Stability Answer Date Recorded What is your housing situation today? I have jillian lopez 06/30/[address] you li [...] encounter Miscellaneous Notes * Telephone Encounter - Reji Zuniga - 07/27/2024 10:37 AM EDT TC from pt requesting medication refill. Medications needing refill : oxyCODONE-acetaminophen (Percocet) 5-325 MG tablet To be sent to: [id number] [place], [place] - [address] [facility] documented in this encounter Plan of Treatment Upcoming Encounters Date Type Department Care Team ([facility] st Contact Info) Description 12/14/2024 2:00 PM EDT Telemedicine [facility] MED [facility] PEDS [address] [place] [address] Nahed Estrada RN [address] [place] [address] documented as of this encounter Visit Diagnoses Not on filedocumented in this encounter Care Teams Experience Planning Strategist Relationship Specialty Start Date End Date Lissette Marte MD [address] [place] [phone] PCP - General Family Medicine 03/12/19 documented as of this encounter
--- OUTSIDE RECORDS SUMMARY | 2024-11-02 14:39 | XMS_ITS | Encounter Summary ---
Author Organization [employer] Address [address] [facility] [address] [place] [address] Care Team Providers Care Glue Spreader Name Role Phone Lissette Marte MD Primary Care Provider Reason for Visit * Reason Onset Date Comments Med Refill 11/11/2023 Encounter Details Date Type Department Care Team ([facility] st Contact Info) Description 11/11/2023 Telephone [facility] MEDICINE [address] [place] [address] Lissette Marte MD [address] [place] [address] Med Refill Social History Tobacco Use Types [...] Miscellaneous Notes * Telephone Encounter - Phong Perez - 11/11/2023 11:59 AM EDT TC from pt requesting medication refill. Medications needing refill : oxyCODONE-acetaminophen (Percocet) 5-325 MG tablet To be sent to: [id number] - [place], [place] - [address] [facility] documented in this encounter Plan of Treatment Upcoming Encounters Date Type Department Care Team (Late st Contact Info) Description 12/14/2024 2:00 PM EDT Telemedicine [facility] MED & PEDS [address] [place] [address] Nahed Estrada, RN [address] [place] [address] documented as of this encounter Visit Diagnoses Not on filedocumented in this encounter Care Teams Glue Spreader Relationship Specialty Start Date End Date Lissette Marte MD [address] [place] [phone] PCP - General Family Medicine 03/12/19 documented as of this encounter
--- OUTSIDE RECORDS SUMMARY | 2024-11-02 14:39 | XMS_ITS | Encounter Summary ---
Author Organization [employer] Address [address] [facility] 7t [place] [address] Care Team Providers Care Reuse Technician Name Role Phone Lissette Marte MD Primary Care Provider [phone] Reason for Visit * Reason Onset Date Comments Med Refill 08/21/2024 Encounter Details Date Type Department Care Team ([facility] st Contact Info) Description 08/21/2024 Telephone [facility] MEDICINE [address] [place] [address] Lissette Marte MD [address] [place] [address] Med Refill Social History Tobacco Use Types [...] encounter Miscellaneous Notes * Telephone Encounter - Atilio Parr - 08/21/2024 12:56 PM EDT TC from pt requesting medication refill. Medications needing refill : oxyCODONE-acetaminophen (Percocet) 5-325 MG tablet To be sent to: [id number] [place], [place] - [address] [facility] documented in this encounter Plan of Treatment Upcoming Encounters Date Type Department Care Team ([facility] st Contact Info) Description 12/14/2024 2:00 PM EDT Telemedicine [facility] MED [facility] PEDS [address] [place] [address] Nahed Estrada RN [address] [place] [address] documented as of this encounter Visit Diagnoses Not on filedocumented in this encounter Care Teams Reuse Technician Relationship Specialty Start Date End Date Lissette Marte MD [address] [place] [phone] PCP - General Family Medicine 03/12/19 documented as of this encounter
--- OUTSIDE RECORDS SUMMARY | 2024-11-02 14:39 | XMS_ITS | Clinical Summary ---
Author Organization [employer] Address [address] [facility] [address] [place] [address] Care Team Providers Care Paraprofessional Aide Teacher Name Role Phone Lissette Marte MD Primary Care Provider [phone] Allergies Active Allergy Reactions Criticality Noted Date [...] per day. 30 tablet 11 08/06/19 24 Active minoxidil (Loniten) 2.5 MG tabletIndicatio ns:Androgenetic alopecia,Elevat ed blood pressure reading Take 2 tablets (5 mg) by mouth Once per day. 60 tablet 11 01/07/20 24 025 Active meloxicam (Mobic) 15 MG tabletIndicatio ns:Arthritis of right knee Take 1 tablet (15 mg) by mouth Once per day. 30 tablet 11 02/06/20 24 025 Active lisinopril 10 MG tabletIndicatio ns:Primary hypertension Take 1 tablet (10 mg) by mouth Once per day. 30 tablet 11 07/01/19 25 026 Active Tirzepatide-Sander ght Management (Zepbound) 2.5 MG/0.5ML solution auto-injectorIn dications:Prima ry hypertension,Cl ass 3 severe obesity due to excess calories with serious comorbidity and body mass index (BMI) of 45.0 to 49.9 in adult Inject 0.5 mL (2.5 mg) under the skin 1 (one) time per week. 2 mL 3 08/26/19 25 Active oxyCODONE-aceta minophen (Percocet) 5-325 MG tabletIndicatio ns:Polyarthralg ia Take 1 tablet by mouth every 12 (twelve) hours. 7 tablet 10/22/19 25 Active oxyCODONE-aceta minophen (Percocet) 5-325 MG tabletIndicatio ns:Polyarthralg ia Take 1 tablet by mouth every 12 (twelve) hours. 7 tablet 09/18/19 25 025 Discontinued(R eorder (will not trigger notification to Pharmacy)) Active Problems Problem Noted Date Diagnosed Date Primary hypertension 06/30/2024 Rheumatoid arthritis involving both knees 2024 Long-term current use of opiate analgesic 2024 Androgenetic alopecia 01/07/2024 Diabetes mellitus screening 10/09/2023 [...] Encounters Date Type Department Care Team Description 11/02/2024 Orders Only GENERIC EXTERNAL DATA DEPARTMENT Provider, Generic External Data 10/20/2024 Refill [facility] [address] [place] [address] Lissette Marte MD Polyarthralgia 09/24/2024 2:15 PM EDT Clinical Support [facility] [address] [place] [address] Gillian White RN Primary hypertension 09/24/2024 Travel 09/17/2024 11:00 AM EDT Clinical Support [facility] [address] [place] [address] Nahed Estrada RN Back pain, unspecified back location, unspecified back pain laterality, unspecified chronicity 09/17/2024 Telephone [facility] [address] [facility] [place] [address] Lissette Marte MD Prior Authorization 09/17/2024 Refill [facility] [address] [place] [address] Nahed Estrada RN Polyarthralgia 09/17/2024 Travel 08/25/2024 11:00 AM EDT Office Visit [facility] [address] [place] [address] Lissette Marte MD Primary hypertension (Primary Dx); Class 3 severe obesity due to excess calories with serious comorbidity and body mass index (BMI) of 45.0 to 49.9 in adult 08/25/2024 Travel 08/21/2024 Refill [facility] [address] [place] [address] Nahed Estrada, KATHY Polyarthralgia 08/21/2024 Telephone [facility] [address] [place] [address] Lissette Marte MD Med Refill 08/12/2024 Telephone [facility] [address] [place] [address] Nahed Estrada RN 08/12/2024 Travel from Last 3 Months Immunizations Immunization Administration Dates Next Due Influenza Injectable Quadriv alant Preservative Free IIV4 MDCK 12/01/2019 Influenza injectable quadriv alent IIV4 with preservative 01/22/2017 Influenza injectable quadriv alent preservative free 12/17/2022,03/14/2021,02/13/2019,2015 Influenza, Injectable, MDCK, preservative free 11/20/2023,11/16/2014 Moderna Covid-19 Vaccine 12+ 02/21/2021,05/06/19,04/07/2020 TD (adult), 2 Lf tetanus tox oid, [...] t he electric, gas, oil or water [employer] threatened to shut off services in your [...] Sign Reading Time Taken Comments Blood Pressure 155/106 09/24/2024 2:43 PM EDT Pt confirmed she did not take BP meds today Pulse 72 09/24/2024 2:41 PM EDT Temperature 36.4 C (97.6 F) 08/25/2024 11:15 AM EDT Respiratory Rate 20 09/24/2024 2:41 PM EDT Oxygen Saturation 96% 09/24/2024 2:4 1 PM EDT Inhaled Oxygen Concentration - - Weight 122 kg (269 lb) 08/25/2024 11:15 AM EDT Height 158.1 cm (5' 2.25 ) 08/25/2024 1 1:15 AM EDT Body Mass Index 48.81 08/25/2024 11:15 AM EDT Plan of Treatment Upcoming Encounters Date Type Department Care Team (Late st Contact Info) Description 12/14/2024 2:00 PM EDT Telemedicine [facility] [address] [place] [address] Nahed Estrada, RN [address] [place] [address] Health Maintenance Due Date Last Done Comments CT Colonography 1966 FIT DNA/Cologuard 1966 FIT 1966 FOBT 1966 Lipid Panel 1966 Sigmoidoscopy 1966 Hepatitis B Vaccines (1 of 3 - 19+ 3-dose series) 1985 Pneumococcal Vaccine: 50+ Years (1 of 1 - PCV) 2016 Zoster Vaccines (1 of 2) 2016 Dental Oral Exam 07/11/2022 01/10/2022 Dental Prophylaxis 08/22/2022 02/20/2022 Pap Smear 03/14/2024 03/14/2021 Dental X-Ray: Bitewings 10/09/2024 10/09/19 24, 01/10/2022, 08/31/2010 Influenza Vaccine (#1) 2024 , 12/17/2022, 03/14/2021, Additional history exists Dental X-Ray: Full Mouth 01/11/2025 01/10/2022 Alcohol/Substance Use Screening 06/30/2025 06/30/2024 Depression Screening 06/30/2025 06/30/2024, 07/01/19 Disability Screening 06/30/2025 06/30/2024 SDOH Screening 06/30/2025 06/30/2024 Tobacco Screening 08/25/2025 08/25/2024 Cervical Cancer Screening 03/14/2026 HPV/Cotest 03/14/2026 03/14/2021 Mammogram 03/20/2026 03/20/2024, 02/25, 12/17/2019, Additional history exists DTaP/Tdap/Td Vaccines (3 - Td or Tdap) 01/22/2027 01/22/2017, 03/17/2015 Colonoscopy 05/29/2028 05/30/2023, 03/26/2019 Colorectal Cancer Screening 05/29/2028 RSV Patients and Patients Aged 60 years or older (1 - 1-dose 75+ series) 2041 HIV Screening Completed 02/27/2022 Hepatitis C Screening Completed 02/27/2022 COVID-19 Vaccine Completed 11/20/2023, , 05/05/2020, Additional history exists HIB Vaccines Aged Out [...] patient's age to complete this topic Meningococcal B Vaccine Aged Out No l onger eligible based on patient's age to complete [...] Procedure Name Priority Date/Time Associated Diagnosis Comments SED RATE BY MODIFIED WESTERGREN Routine 11/02/2024 12:38 PM EDT CBC WITH AUTO DIFFERENTIAL Routine 11/02/2024 12:38 PM EDT HEMOGLOBIN A1C Routine 11/02/2024 12:38 PM EDT Obstructive sleep apnea syndrome POCT TRISTAN-14 URINE DRUG SCREEN Routine 09/17/2024 11:08 AM EDT Back pain, unspecified back location, unspecified back pain laterality, unspecified chronicity BI MAMMOGRAM SCREENING TOMOSYNTHESIS BILATERAL Routine 03/20/2024 4:08 PM EST Encounter for screening mammogram for breast cancer BITEWING - SINGLE RADIOGRAPHIC IMAGE Routine 10/09/2023 3:30 PM EDT Open fracture of tooth, initial encounter HM COLONOSCOPY Routine 05/30/2023 HEPATITIS PANEL, GENERAL Routine 02/27/2022 4:44 PM EST HIV ANTIBODY/ANTIGEN ([place] DPH) Routine 02/27/2022 4:44 PM EST PROPHYLAXIS - ADULT Routine 02/20/2022 4 :45 PM EST Dental calculus THINPREP IMAGING PAP AND HPV MRNA E6/E7 WITH REFLEX TO HPV 16,18/45 Routine 03/14/2021 1:00 PM EST from Last 3 Months or Most Recently Relevant to Health Maintenance Results * (ABNORMAL) CBC auto differential (11/02/2024 12:38 PM EDT) White Blood Count 6.6 4.8 - 10.8 X10*3/uL [facility] Red Blood Count 5.83(H) 4.20 - 5.50 X10*6/uL [facility] Hemoglobin 12.9 12.0 - 16.0 g/dl [facility] Hematocrit 42.1 37.0 - 47.0 % [facility] Mean Corpuscular Volume 72.2(L) 80.0 - 98.0 fL [facility] Mean Corpuscular Hemoglobin 22.1(L) 27.0 - 33.0 pg [facility] Mean Corpuscular HGB Conc 30.6(L) 31.0 - 35.0 g/dl [facility] Red Cell Distribution Width 17.2(H) 11.0 - 16.0 % [facility] Platelet Count 240 160 - 400 X10*3/uL [facility] Mean Platelet Volume 10.8 9.4 - 12.3 fL [facility] Neutrophils Percent Auto 63.7 45 - 73 % [facility] Imm Gran Pct Auto 0.5(H) 0.0 - 0.4 % [facility] Lymphocytes Percent Auto 28.4 20 - 40 % [facility] Monocytes Percent Auto 6.0 2 - 11 % [facility] Eosinophils Percent Auto 1.1 0 - 4 % [facility] Basophils Percent Auto 0.3 0 - 2 % [facility] NRBC Pct Auto 0.0 0.0 - 0.2 /100WBC [facility] Neutrophils Absolute Auto 4.2 2.0 - 8.3 x10*3/uL [facility] Imm Gran Abs Auto 0.03 0.00 - 0.03 X10*3/uL [facility] Lymphocytes Absolute Auto 1.9 1.2 - 4.9 X10*3/uL [facility] Monocytes Absolute Auto 0.4 0.1 - 1.2 X10*3/uL [facility] Eosinophils Absolute Auto 0.1 0.0 - 0.4 X10*3/uL [facility] Basophils Absolute Auto 0.0 0.0 - 0.2 X10*3/uL [facility] NRBC Abs Auto 0.000 0.0 - 0.012 X10*3/uL [facility] 11/02/2024 12:3 8 PM EDT 11/02/2024 12:38 PM EDT Generic External Data Provider LAB BLOOD ORDERAB LES Final Result Performing Organization Address [facility]/ZIP Co de Phone Number [facility] [address] [place] [phone] * Sed Rate by Modified Westergren (11/02/2024 12:38 PM EDT) Erythrocyte Sedimentation Rate 17 0 - 20 MM/HR [facility] Comment:Patients with polycy themia and many hemoglobin abnormalitiesmay have depressed sed rates whereas patients with anemiamay have elevated sed rates. 11/02/2024 12:3 8 PM EDT 11/02/2024 12:38 PM EDT Generic External Data Provider LAB BLOOD ORDERAB LES Final Result Performing Organization Address [facility] Co de Phone Number [facility] [address] [place] [phone] * Hemoglobin A1c (11/02/2024 12:38 PM EDT) Hemoglobin A1c 5.3 <6.0 % [facility] Comment:Hemoglobin A1C Refer ence Range Adults: 4.8 - 6.0 % Non diabetic: < 6.0 % Goal: < 7.0 %Additional Action Suggested: > 8.0 %Note: Hemoglobin A1c results are invalid for patients with abnormal amounts of HbF. Blood transfusions may impact the HbA1c concentration in the patient sample. Estimated Average Glucose 105 mg/dL [facility] Comment:eAG = Estimated ave rage glucose which is %A1C expressed asaverage glucose, using the formula of the [id number] Glucose study (ADAG), Diabetes Care, Vol.31,#8,Sep. 2007 Blood Venous blood specimen / Unknown 11/02/2024 12:38 PM EDT 11/02/2024 12:38 PM EDT Lissette Marte MD LAB BLOOD ORDERABLES Final Resul t [facility] [address] [place] [phone] [phone] * POCT TRISTAN-14 Urine Drug Screen (09/17/2024 11:08 AM EDT) THC Negative Negative Cocaine Screen, Urine Negative Negative Opiate Screen, Urine Negative Negative Methamphetamine Screen Urine Negative Negative Amphetamine Screen, Urine Negative Negative Benzodiazepines Screen, Urine Negative Negative Barbiturate Screen, Urine Negative Negative Methadone Screen, Urine Negative Negative Buprenophine Screen, Urine Negative Negative TCA, Urine Negative Negative MDMA Urine Negative Negative ng/mL Oxycodone Screen, Urine Negative Negative Phencyclidine (PCP), Urine Negative Negative Propoxyphene, Urine Negative Negative Fentanyl, Urine Negative Negative Urine Urine specimen obtained by clean catch procedure / Unknown 09/17/2024 11:08 AM EDT Narrative Nahed Estrada RN - 09/17/2024 11:08 AM EDT Internal Pass Control Lot# [id number] Exp: 12-25-25 Lissette Marte MD POINT OF CARE TEST ENTER/EDIT OR DERABLES Final Result * BI Mammogram Screening Tomosynthesis Bilateral (03/20/2024 4:08 PM EST) Anatomical Region Laterality Modality Breast Bilateral Mammography 03/20/2024 4:08 PM EST Narrative 03/31/2024 10:40 AM EST [facility] [address] [place] [address] Mammography Report Signed Patient: Catarina Haro MR#: [id number] : 1965 Acct:[id number] Age/Sex: 59 / F ADM Date: 03/20/24 Loc: [facility].MAMMO Attending Dr: Lissette Marte MD Ordering Physician: Lissette Maret MD Results: 1Negati ve Date of Service: 03/20/24 Follow Up: 1 Year From Orig inal Mammogram Procedure(s): MM tomosynthesis screening BI Accession Number(s): [id number] cc: Lissette Marte MD EXAMINATION: MM SCREENING DIGITAL BREAST TOMOSYNTHESIS, BILATERAL CLINICAL INFORMATION: Screening. Asymptomatic. COMPARISON: Mammography: Comparison is made with available priors TECHNIQUE: Digital breast mammography with tomosynthesis is performed in both the craniocaudal and mediolateral oblique views along with computer-aided detection (CAD). FINDINGS: There are scattered areas of fibroglandular density (ACR BI-RADS breast composition Category b). There are no significant masses, abnormal calcifications, or other abnormalities. MM/MM tomosynthesis screening BI IMPRESSION: No mammographic evidence of malignancy. ASSESSMENT: BI-RADS BI-RADS 1 - Negative RECOMMENDATION: Routine annual mammography screening. 1 year F/U This examination should not preclude the clinical evaluation of a suspicious palpable abnormality. This patient's information was entered into a reminder system with a target due date for their next mammogram. Electronically signed by: Margaret Thomas DO 03/31/2024 10:37 AM EST Dictated By: Margaret Thomas DO Signed By: <Electronically signed by Margaret Thomas DO in OV> 03/31/24 1037 DD/ 1608 TD/TT: 03/20/24 1624 Product Developer: Procedure Note Donotuseinterpreter, Image - 03/31/2024 [facility] [address] [place] [address] Mammography Report Signed Patient: Darline Haro#: [id number] : 1965Acct:[id number] Age/Sex: 59 / FADM Date: 03/20/24 Loc: HO.MAMMO Attending Dr: Lissette Marte MD Ordering Physician: Lissette Marte MDResults: 1Negati ve Date of Service: 03/20/24Follow Up: 1 Year From Orig inal Mammogram Procedure(s): MM tomosynthesis screening BI Accession Number(s): [id number] cc: Lissette Marte MD EXAMINATION: MM SCREENING DIGITAL BREAST TOMOSYNTHESIS, BILATERAL CLINICAL INFORMATION: Screening. Asymptomatic. COMPARISON: Mammography: Comparison is made with available priors TECHNIQUE: Digital breast mammography with tomosynthesis is performed in both the craniocaudal and mediolateral oblique views along with computer-aided detection (CAD). FINDINGS: There are scattered areas of fibroglandular density (ACR BI-RADS breast composition Category b). There are no significant masses, abnormal calcifications, or other abnormalities. MM/MM tomosynthesis screening BI IMPRESSION: No mammographic evidence of malignancy. ASSESSMENT: BI-RADS BI-RADS 1 - Negative RECOMMENDATION: Routine annual mammography screening. 1 year F/U This examination should not preclude the clinical evaluation of a suspicious palpable abnormality. This patient's information was entered into a reminder system with a target due date for their next mammogram. Electronically signed by: Margaret Thomas DO 03/31/2024 10:37 AM EST RP Dictated By: Margaret Thomas DO Signed By: <Electronically signed by Margaret Thomas DO in OV> 03/31/24 1037 DD/ 1608 TD/TT: 03/20/24 1624 Product Developer: Lissette Marte MD IM BI PROCEDURES Final Result * Hm Colonoscopy (05/30/2023) Pathologist [facility] Colonoscopy Normal Normal Narrative Miri Manzano - 05/30/2023 Recommended 5 years . See see external hospital admission note with matching date Historical Provider HEALTH MAINTENANCE Final Result * HIV Ab/Ag (ISABEL KEE) (02/27/2022 4:44 PM EST) Pathologist [facility] HIV AB/AG Nonreactive Nonreactive [facility] Comment:HIV-1 p24 Ag and/or HIV-1/HIV-2 Ab not detected.A test result that is nonreactive does not exclude thepossibility of exposure to or infection with HIV-1 and/orHIV-2. Nonreactive results in this assay for individualswith prior exposure to HIV-1 and/or HIV-2 may be due toantigen and antibody levels that are below the limit ofdetection of this assay.[employer] Demonstrator HIV Ag/Ab Combo assay result andsupplemental assay results should be interpreted inconjunction with the patient's clinical presentation,history and other laboratory results. If the results areinconsistent with clinical evidence, additional testing issuggested to confirm the result. 02/27/2022 4:44 PM EST 02/27/2022 4:44 PM EST [facility] External Provider LAB BLO OD ORDERABLES Final Result Performing Organization Address [facility] de Phone Number [facility] [address] [place] [phone] [phone] * Hepatitis Panel, General (02/27/2022 4:44 PM EST) Hepatitis A IgM Nonreactive Nonreactive [facility] Comment:IgM antibodies to FORDE V not detected; does not exclude earlyacute or recovered HAV infection. ~Hepatitis B Surface Antibody NONREACTIVE Nonreactive [facility] Comment:Nonreactive: < 8.00 mIU/mL Hepatitis B Core Antibody Nonreactive Nonreactive [facility] Hepatitis C Antibody Nonreactive Nonreactive [facility] Comment:Antibodies to HCV no t detected; does not exclude early acuteHCV infection. Hepatitis B Surface Ag Negative Negative [facility] 02/27/2022 4:44 PM EST 02/27/2022 4:44 PM EST [facility] External Provider LAB BLO OD ORDERABLES Final Result Performing Organization Address [facility] de Phone Number [facility] [address] [place] [phone] * THINPREP TIS PAP AND HPV mRNA E6/E7 WITH REFLEX TO HPV 16,18/45 (03/14/2021 1:00 PM EST) Clinical Information: None given [facility] COMMENT SEE COMMENT [facility] Comment: EXPLANATORY NOTE: The Pap is a screening test for cervical cancer. It is not a diagnostic test and is subject to false negative and false positive results. It is most reliable when a satisfactory sample, regularly obtained, is submitted with relevant clinical findings and history, and when the Pap result is evaluated along with historic and current clinical information. COMMENT: This Pap test has been evaluated with computer assisted technology. [facility] [employer] Distribution [employer] Emergency Clerk: SEE COMMENT [facility] Comment: [place] CT(ASCP) CT screening location: [place] [address] HPV nRNA E6/E7 Not Detected Not Detected [facility] Comment: Methodology: Manager Client Service-Mediated Amplification This assay detects E6/E7 viral messenger RNA (mRNA) from 14 high-risk HPV types (16,18,31,33,35,39,45,51,52,56,58,59,66,68). The analytical performance characteristics of this assay have been determined by [employer]. The modifications have not been cleared or approved by the FDA. This assay has been validated pursuant to the CLIA regulations and is used for clinical purposes. For additional information, please refer to http://education.[employer].cn/faq/OBJ556v6 (This link if provided for information/ educational purposes only.) Interpretation/Re sult: Negative for intraepithelial lesion or malignancy. [facility] LMP: 6M [facility] Prev. BX: NONE GIVEN [facility] Prev. PAP: NIL 09/2017 [facility] SOURCE: None given [facility] Statement Of Adequacy: SEE COMMENT [facility] Comment: Satisfactory for evaluation. Endocervical/transformation zone component absent. 03/14/2021 1:00 PM EST us Suzi MARTINEZ LAB PATHOLOGY ORDERABLES Final Result [facility] [address] [place] [address], from Last 3 Months or Most Recently Relevant to Health Maintenance Insurance [facility] [address] [place] [address] DENTAL - [facility] Care Teams Paraprofessional Aide Teacher Relationship Specialty Start Date End Date Lissette Marte MD [address] [place] [phone] PCP - General Family Medicine 03/12/19
== END 2024-11-02 12:18 | disposition home or self-care (01) ==
LOC: HO.LAB 12:17
PROVIDERS: PCP Student in an Organized Health Care Education/Training Program; Visit Provider Student in an Organized Health Care Education/Training Program
DX: Z13.6 Encounter for screening for cardiovascular disorders (principal); Z13.1 Encounter for screening for diabetes mellitus; G47.33 Obstructive sleep apnea (adult) (pediatric); M05.79 Rheumatoid arthritis with rheumatoid factor of multiple sites without organ or systems involvement
CPT/HCPCS: 36415; 80053; 80061; 82248; 83036; 85025; 85652; 86140

== ENCOUNTER 2024-11-24 13:42 | Outpatient (AMB) | payer OTHER, SELFPAY ==
--- NOTE | 2024-11-24 13:48 | A.OFFVIS_ITS ---
Vital Signs 11/24/24 13:53 Height 5 ft 3 in Weight 275 lb 9.245 oz BMI 48.8 BP 124/70 Blood Pressure Location Lt radial Position Sitting Pulse 74 Pulse Source Pulse Oximeter Pulse Oximetry (%) 97 Oxygen Delivery Method Room Air Intake Visit Reasons: RA Intake Note: Patient presents for RA follow up. Allergies methotrexate Adverse Reaction (Intermediate, Verified 11/24/24 13:52) Fatigued Medication List - Last Reconciled 11/24/24 by Zee Rogers MD acetaminophen (Tylenol Extra Strength) 500 mg PO Q6H PRN famotidine 40 mg PO DAILY hydroxychloroquine 200 mg PO BID oxycodone-acetaminophen 5-325 mg tabs PO HPI Comments Details: Patient is a 59-year-old female with osteoarthritis of the right knee and seropositive rheumatoid arthritis here today for follow up Interval History: Patient last seen 06/23/24 with me. - On Hydroxychloroquine 200mg bid - She was given a bilateral knee steroid injection with plans to do durolane gel injections at the next visit. A few hours after the injection she started to notice redness and blistering to the site of the injection. - She went to urgent care over the weekend and was given antibiotics - She was concerned that the injection did not enter the joint and caused a reaction in her skin - The area was burned from a reaction to the spray, she was reassured that the medication all went into the joint Today, - On Hydroxychloroquine 200mg bid - Complaining of bilateral knee and bilateral shoulder pain, sometimes not able to lift her hands above her head - Saw opthal a few months ago, no retinal issues - Because of her pain she has been taking Tylenol and Motrin consistently Rheumatologic History: Seropositive rheumatoid arthritis +RF+++CCP diagnosed 01/2022 Methotrexate started 03/2022 effective DC 10/17 due to transaminitis, fatigue, GI upset HCQ 01/2023 effective Initial history: This is a 56-year-old female with a past medical history of morbid obesity presents for evaluation of multiple joint pain and swelling. The condition started 1 month ago with abrupt onset of right knee pain and swelling, the pain then shifts to another joint such as left shoulder, elbows, wrists, other knee. She would continue to have pain in the initial joint but the pain would be less severe and the severity would be in another joint. Today the most painful joints are the right knee , right right shoulder and right wrist. Pain is improved with Tylenol. Patient is unable to take NSAIDs due to history of esophagitis. Patient went to the ER and was prescribed lidocaine patches which did not help. She has a prescription for oxycodone which she previously takes due to painful menstrual periods. (? Adenomyosis) she currently takes the oxycodone for the joint pain which does take the edge off. In October patient had a dental infection, she received multiple courses of amoxicillin. She eventually had a root canal. Currently she does not have any dental symptoms. She denies any fevers, weight loss, skin rashes, Raynaud's. There is no history of DVT/PE. Current Rheumatology Medication(s): Hydroxychloroquine 200 mg b.i.d. 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 Female Reproductive History Menstrual Age of Menarche: 12 Review of Systems Const Details: Review of Systems Constitutional: Denies fever, chills, weight loss ENT: Denies vision changes, eye pain or eye redness, dental caries, dry mouth GI: Denies nausea, vomiting, diarrhea, abdominal pain, change in BM Pulm: Denies SOB, [place], hemoptysis, wheezing Cards: Denies chest pain, palpitations Skin: Denies Raynaud's, rash, nail changes, photosensitivity, REIMBURSEMENT MANAGER: Denies headaches, weakness, paresthesias, recurrent falls MSK: as per HPI All other systems reviewed and are unremarkable except noted above Physical Exam Exam Exam: Vital signs reviewed Physical Examination CONSTITUITIONAL Patient alert and cooperative. Well appearing and in no apparent painful distress MSK Hands * Right Hand: Able to make a fist. No swelling or tenderness to palpation of the MCPs, PIPs or DIPs. * Left Hand: Able to make a fist. No swelling or tenderness to palpation of the MCPs, PIPs or DIPs. * Herbedens nodes noted bilaterally Wrists * Right Wrist: Full ROM to flexion and extension. No swelling or TTP * Left Wrist: Full ROM to flexion and extension. No swelling or TTP Elbows * Right Elbow: Full ROM. No swelling or TTP. No TTP of the medial epicondyle. No TTP of the lateral epicondyle * Left Elbow: Full ROM. No swelling or TTP. No TTP of the medial epicondyle. No TTP of the lateral epicondyle Shoulders * Right shoulder: Full ROM. No swelling noted. TTP of the AC joint. TTP of the subacromial bursa. No TTP of the posterior shoulder * Left shoulder: Full ROM. No swelling noted. TTP of the AC joint. TTP of the subacromial bursa. No TTP of the posterior shoulder Hip bursa: No tenderness to palpation bilaterally Knees * Right knee: Full ROM. No swelling noted. TTP of the knee joint line. No TTP of pes anserine bursa * Left knee: Full ROM. No swelling noted. TTP of the knee joint line. No TTP of pes anserine bursa. * Crepitations felt bilaterally Ankles * Right ankle: Good ankle dorsiflexion and plantar flexion. No swelling. No TTP of the ankle joint * Left ankle: Good ankle dorsiflexion and plantar flexion. No swelling. No TTP of the ankle joint Feet * Right foot: Negative squeeze test * Left foot: Negative squeeze test Tender points? * No tenderness to palpation of the bilateral trapezius, supraspinatus, anterior costochondral junctions, bilateral suboccipital muscle insertions SKIN No rashes Vital Signs: Last Vital Signs Pulse 74 11/24/24 13:53 BP 124/70 11/24/24 13:53 Pulse Ox 97 11/24/24 13:53 Oxygen Delivery Method Room Air 11/24/24 13:53 BMI result Body Mass Index 48.8 Office Procedures AMB Joint Injection/Aspiration Coding - Large joint Procedure code (CPT) selection complete AMB Joint Injection/Aspiration Coding - Large joint Procedure code (CPT) selection complete Office Meds Gel-One 30 mg/3 mL intra-articular syringe Performing Provider: Zee Rogers MD Performing Location: [facility] Administered by: Cheryl Lazaro RN on 11/24/24 15:01 Dose Route Admin Location Dispensed Lot Number Expiration Date [place] Waste Management Engineer 30 mg intra-articular 3 mL [id number] 05/31/26 77877-32419 [employer]. Total Dispensed Waste 3 mL 0 % Gel-One 30 mg/3 mL intra-articular syringe Performing Provider: Zee Rogers MD Performing Location: [facility] Administered by: Cheryl Lazaro RN on 11/24/24 15:01 Dose Route Admin Location Dispensed Lot Number Expiration Date [place] Waste Management Engineer 30 mg intra-articular 3 mL [id number] 03/22/26 19021-76273 [employer]. Total Dispensed Waste 3 mL 0 % Results Reviewed Results Reviewed: Laboratory Tests 12/17/23 11/02/24 16:58 12:38 WBC 6.6 RBC 5.83 H Hgb 12.9 Hct 42.1 Plt Count 240 ESR 17 Sodium 143 Potassium 4.3 Chloride 110 H Carbon Dioxide 23 BUN 11 Creatinine 0.80 AST 28 146 H ALT 25 227 H Alkaline Phosphatase 109 308 H C-Reactive Protein 0.36 0.40 Laboratory Tests 01/29/22 02/27/22 17:23 16:44 Rheumatoid Factor 46.6 H Cycl Citrul Peptide IgG >250 H BARBI Screen NEGATIVE Assessment & Plan Assessment & Plan (1) Rheumatoid arthritis: Comment: +RF+++CCP diagnosed 01/2022 Methotrexate started 03/2022 effective DC 10/17 due to transaminitis, fatigue, GI upset HCQ 01/2023 effective Code(s): M06.9 - Rheumatoid arthritis, unspecified Category: Medical Qualifiers: Rheumatoid arthritis location: multiple sites Rheumatoid factor presence: with rheumatoid factor Qualified Code(s): M05.79 - Rheumatoid arthritis with rheumatoid factor of multiple sites without organ or systems involvement Plan: #Seropositive RA Patient is a 59-year-old female with seropositive rheumatoid arthritis here today for follow up. Currently in remission from her rheumatoid arthritis. Her symptoms are likely related to her polyarticular osteoarthritis as well as frozen shoulder. Plan - Hydroxychloroquine 200mg bid - Labs today: CMP - RTC 6 months - labs before visit: CBC, CMP, ESR, CRP (2) Bilateral primary osteoarthritis of knee: Code(s): M17.0 - Bilateral primary osteoarthritis of knee Plan: #Bilateral Knee OA Patient with bilateral knee osteoarthritis. 2021 films show progression from 2017. Last gel injection July 2023 that lasted about 6 months. Plan - s/p bilateral Gel 1 knee injections (3) Tendonitis of both rotator cuffs: Code(s): M75.81 - Other shoulder lesions, right shoulder; M75.82 - Other shoulder lesions, left shoulder Plan: #Bilateral rotator cuff tendonitis Refer to PT if no improvement will do steroid injections (4) Transaminitis: Code(s): R74.01 - Elevation of levels of liver transaminase levels Plan: #Transaminitis Likely 2/2 Tylenol and NSAID use Recommended that she hold this for now Recheck CMP today (5) Long-term use of hydroxychloroquine: Comment: Eye exam okay 03/2023 Code(s): Z79.899 - Other mcc (current) drug therapy Category: Medical Plan: #Long-term Use of Hydroxychloroquine Discussed with patient the risks and benefits of hydroxychloroquine in managing the rheumatic condition Benefits include: - Reduced pain, reduce mortality, maintenance of remission and reduction of flares Risks include: - GI upset, skin hyperpigmentation, retinal toxicity (especially after more than 5 years of use), myopathy Advised yearly ophthalmology visits Plan I spent 30 minutes reviewing the record and labs, taking a history, examining the patient, discussing the treatment plan, ordering diagnostic work up and documenting in the medical record Orders: Orders AMB Joint Injection/Aspiration Today M17.0 - Bilateral primary osteoarthritis of knee AMB Joint Injection/Aspiration Today M17.0 - Bilateral primary osteoarthritis of knee Coding Level of Care Code Est Pt Level 4 (45234) Complex EM visit Add On G2211 Diagnoses Rheumatoid arthritis involving multiple sites with positive rheumatoid factor M05.79 Rheumatoid arthritis location: multiple sites Rheumatoid factor presence: with rheumatoid factor Bilateral primary osteoarthritis of knee M17.0 Tendonitis of both rotator cuffs M75.81; M75.82 Transaminitis R74.01 Long-term use of hydroxychloroquine Z79.899 CPT Codes Coding - 19417 Large joint: 65587 - Large joint ([id number]) Coding - 08496 Large joint: 61147 - Large joint ([id number])
[2024-11-24 13:53] VITALS: BP 124/70; PULSE 74; O2SAT 97; BMI 48.8
--- OUTSIDE RECORDS SUMMARY | 2024-11-24 15:01 | XMS_ITS | Encounter Summary ---
Author Organization [employer] Address [address] [place] [address] Care Team Providers Care National Van Owner Operator Name Role Phone Lissette Marte MD Primary Care Provider [phone] Reason for Visit * Reason Onset Date Comments Med Refill 09/02/2023 Encounter Details Date Type Department Care Team ([facility] st Contact Info) Description 09/02/2023 Telephone [facility] [address] [place] [address] Lissette Marte MD [address] [place] [address] Med Refill Social History Tobacco Use Types [...] 5-325 MG tablet To be sent to: [id number] - [place], [place] - [address] [facility] documented in this encounter Plan of Treatment Upcoming Encounters Date Type Department Care Team (Late st Contact Info) Description 12/14/2024 2:00 PM EDT Telemedicine [facility] [address] [place] [address] Nahed Estrada, RN [address] [place] [address] documented as of this encounter Visit Diagnoses Not on filedocumented in this encounter Care Teams National Van Owner Operator Relationship Specialty Start Date End Date Lissette Marte MD [address] [place] [id number] PCP - General Family Medicine 03/12/19 documented as of this encounter
--- OUTSIDE RECORDS SUMMARY | 2024-11-24 15:01 | XMS_ITS | Encounter Summary ---
Author Organization [employer] Address [address] [place] [address] Care Team Providers Care Transportation Operations Manager Name Role Phone Lissette Marte MD Primary Care Provider [phone] Reason for Visit * Reason Onset Date Comments Med Refill 11/11/2023 Encounter Details Date Type Department Care Team ([facility] st Contact Info) Description 11/11/2023 Telephone [facility] [address] [place] [address] Lissette Marte MD [address] [place] [address] Med Refill Social History Tobacco Use Types [...] 5-325 MG tablet To be sent to: [id number] - [place], [place] - [address] [facility] documented in this encounter Plan of Treatment Upcoming Encounters Date Type Department Care Team (Late st Contact Info) Description 12/14/2024 2:00 PM EDT Telemedicine [facility] [address] [place] [address] Nahed Estrada, RN [address] [place] [address] documented as of this encounter Visit Diagnoses Not on filedocumented in this encounter Care Teams Transportation Operations Manager Relationship Specialty Start Date End Date Lissette Marte MD [address] [place] [id number] PCP - General Family Medicine 03/12/19 documented as of this encounter
--- OUTSIDE RECORDS SUMMARY | 2024-11-24 15:01 | XMS_ITS | Clinical Summary ---
Author Organization [employer] Address [address] [facility] 7t [place] [address] Care Team Providers Care Patient Relations Liaison Name Role Phone Lissette Marte MD Primary Care Provider [phone] Allergies Active Allergy Reactions Criticality Noted Date Comments Methotrexate High 05/30/2023 Other Reaction(s): Fatigued GI upset transaminitis Medications naloxone (Narcan) 4 mg/0.1 mL nasal spray Administer 0.1 mL into affected nostril(s). 2 Active acetaminophen (Tylenol) 500 MG tablet Take 1 tablet by mouth every 8 (eight) hours. 2 Active famotidine (Pepcid) 40 MG tablet 2 Active folic acid (Folvite) 1 MG tablet Take 1,000 mcg by mouth in the morning. 3 Active bacitracin-polymy leon b (Polysporin) ointmentIndicatio ns:Toe pain, bilateral,Callus Apply topically 2 times daily. 15 g 3 Active betamethasone, augmented, (Diprolene) 0.05 % lotionIndications :Androgenetic alopecia Apply topically 2 times daily. 60 mL 3 4 Active ketoconazole (Nizoral) 2 % shampooIndication s:Dandruff Apply topically 2 (two) times a week. 120 mL 11 4 Active minoxidil (Loniten) 2.5 MG tabletIndications :Androgenetic alopecia Take 1 tablet (2.5 mg) by mouth Once per day. 30 tablet 11 4 Active minoxidil (Loniten) 2.5 MG tabletIndications :Androgenetic alopecia,Elevated blood pressure reading Take 2 tablets (5 mg) by mouth Once per day. 60 tablet 11 4 01/07/20 25 Active meloxicam (Mobic) 15 MG tabletIndications :Arthritis of right knee Take 1 tablet (15 mg) by mouth Once per day. 30 tablet 11 4 02/06/20 25 Active lisinopril 10 MG tabletIndications :Primary hypertension Take 1 tablet (10 mg) by mouth Once per day. 30 tablet 11 5 07/01/19 26 Active Tirzepatide-Weigh t Management (Zepbound) 2.5 MG/0.5ML solution auto-injectorIndi cations:Primary hypertension,Clas s 3 severe obesity due to excess calories with serious comorbidity and body mass index (BMI) of 45.0 to 49.9 in adult (HCC) Inject 0.5 mL (2.5 mg) under the skin 1 (one) time per week. 2 mL 3 5 Active oxyCODONE-acetami nophen (Percocet) 5-325 MG tabletIndications :Polyarthralgia Take 1 tablet by mouth every 12 (twelve) hours. 7 tablet 5 Active Active Problems Problem Noted Date Diagnosed Date Primary hypertension 06/30/2024 Rheumatoid arthritis involving both knees (CMS/H CC) 06/30/2024 Long-term current use of opiate analgesic 2024 [...] DEPARTMENT Provider, Generic External Data 10/20/2024 Refill [facility] [address] [place] [address] Lissette Marte MD Polyarthralgia 09/24/2024 2:15 PM EDT Clinical Support [facility] [address] [place] [address] Gillian White RN Primary hypertension 09/24/2024 Travel 09/17/2024 11:00 AM EDT Clinical Support [facility] [address] [place] [address] Nahed Estrada RN Back pain, unspecified back location, unspecified back pain laterality, unspecified chronicity 09/17/2024 Telephone [facility] [address] [place] [address] Lissette Marte MD Prior Authorization 09/17/2024 Refill [facility] [address] [place] [address] Nahed Estrada RN Polyarthralgia 09/17/2024 Travel 08/25/2024 11:00 AM EDT Office Visit [facility] [address] [place] [address] Lissette Marte MD Primary hypertension (Primary Dx); Class 3 severe obesity due to excess calories with serious comorbidity and body mass index (BMI) of 45.0 to 49.9 in adult 08/25/2024 Travel from Last 3 Months Immunizations Immunization Administration Dates Next Due Influenza Injectable Quadriv alant Preservative Free IIV4 MDCK 12/01/2019 Influenza injectable quadriv alent IIV4 with preservative 01/22/2017 Influenza injectable quadriv alent preservative free 12/17/2022,03/14/2021,02/13/2019,2015 Influenza, Injectable, MDCK, preservative free 11/20/2023,11/16/2014 Moderna Covid-19 Vaccine 12+ 02/21/2021,05/06/19 21,04/07/2020 TD [...] Upcoming Encounters Date Type Department Care Team ([facility] st Contact Info) Description 12/14/2024 2:00 PM EDT Telemedicine [facility] [address] [place] [address] Nahed Estrada, RN [address] [place] [address] Health Maintenance Due Date Last Done Comments CT Colonography 1965 FIT DNA/Cologuard 1965 FIT 1965 FOBT 1965 Sigmoidoscopy 1965 Hepatitis B Vaccines (1 of 3 - 19+ 3-dose series) 1985 Pneumococcal Vaccine: 50+ Years (1 of 1 - PCV) 2016 Zoster Vaccines (1 of 2) 2016 Dental Oral Exam 07/11/2022 01/10/2022 Dental Prophylaxis 08/22/2022 02/20/2022 Pap Smear 03/14/2024 03/14/2021 Dental X-Ray: Bitewings 10/09/2024 10/09/19 24, 01/10/2022, 08/31/2010 Influenza Vaccine (#1) 2024 4, 12/17/2022, 03/14/2021, Additional history exists Dental X-Ray: [...] 05/29/2028 05/30/2023, 03/26/2019 Colorectal Cancer Screening 05/29/2028 Lipid Panel 11/02/2029 11/02/2024 RSV Patients and Patients Aged 60 years [...] Procedure Name Priority Date/Time Associated Diagnosis Comments C-REACTIVE PROTEIN Routine 11/02/2024 12 :38 PM EDT COMPREHENSIVE METABOLIC PANEL Routine 11/02/2024 12:38 PM EDT SED RATE BY MODIFIED WESTERGREN Routine 11/02/2024 12:38 PM EDT CBC WITH AUTO DIFFERENTIAL Routine 11/02/2024 12:38 PM EDT HEMOGLOBIN A1C Routine 11/02/2024 12:38 PM EDT Obstructive sleep apnea syndrome HEPATIC FUNCTION PANEL Routine 12:38 PM EDT Obstructive sleep apnea syndrome LIPID PANEL, STANDARD Routine 11/02/2024 12:38 PM EDT Obstructive sleep [...] Blood Count 6.6 4.8 - 10.8 X10*3/uL [facility] Red Blood Count 5.83(H) 4.20 - 5.50 X10*6/uL [facility] Hemoglobin 12.9 12.0 - 16.0 g/dl [facility] Hematocrit 42.1 37.0 - 47.0 % [facility] Mean Corpuscular Volume 72.2(L) 80.0 - 98.0 fL [facility] Mean Corpuscular Hemoglobin 22.1(L) 27.0 - 33.0 pg [facility] Mean Corpuscular HGB Conc 30.6(L) 31.0 - 35.0 g/dl [facility] Red Cell Distribution Width 17.2(H) 11.0 - 16.0 % [facility] Platelet Count 240 160 - 400 X10*3/uL [facility] Mean Platelet Volume 10.8 9.4 - 12.3 fL [facility] Neutrophils Percent Auto 63.7 45 - 73 % [facility] Imm Gran Pct Auto 0.5(H) 0.0 - 0.4 % [facility] Lymphocytes Percent Auto 28.4 20 - 40 % [facility] Monocytes Percent Auto 6.0 2 - 11 % [facility] Eosinophils Percent Auto 1.1 0 - 4 % [facility] Basophils Percent Auto 0.3 0 - 2 % [facility] NRBC Pct Auto 0.0 0.0 - 0.2 /100WBC [facility] Neutrophils Absolute Auto 4.2 2.0 - 8.3 x10*3/uL [facility] Imm Gran Abs Auto 0.03 0.00 - 0.03 X10*3/uL [facility] Lymphocytes Absolute Auto 1.9 1.2 - 4.9 X10*3/uL [facility] Monocytes Absolute Auto 0.4 0.1 - 1.2 X10*3/uL [facility] Eosinophils Absolute Auto 0.1 0.0 - 0.4 X10*3/uL [facility] Basophils Absolute Auto 0.0 0.0 - 0.2 X10*3/uL [facility] NRBC Abs Auto 0.000 0.0 - 0.012 X10*3/uL [facility] 11/02/2024 12:3 8 PM EDT 11/02/2024 12:38 PM EDT us Generic External Data Provider LAB BLOOD ORDERAB LES Final Result [facility] [address] [place] [address] [phone] * Sed Rate by Modified Julioergren (11/02/2024 12:38 PM EDT) Erythrocyte Sedimentation Rate 17 0 - 20 MM/HR [facility] Comment:Patients with polycy themia and many hemoglobin abnormalitiesmay have depressed sed rates whereas patients with anemiamay have elevated sed rates. 11/02/2024 12:3 8 PM EDT 11/02/2024 12:38 PM EDT Generic External Data Provider LAB BLOOD ORDERAB LES Final Result Performing Organization Address City/[facility]/ZIP Co de Phone Number [facility] [address] [place] [phone] * C-reactive Protein (11/02/2024 12:38 PM EDT) Pathologist [facility] C Reactive Protein 0.40 < or = 0.50 mg/dL [facility] 11/02/2024 12:3 8 PM EDT 11/02/2024 12:38 PM EDT Generic External Data Provider LAB BLOOD ORDERAB LES Final Result Performing Organization Address City/[facility]/ZIP Co de Phone Number [facility] [address] [place] [phone] * Hemoglobin A1c (11/02/2024 12:38 PM EDT) Hemoglobin A1c 5.3 <6.0 % [facility] Comment:Hemoglobin A1C Refer ence Range Adults: 4.8 - 6.0 % Non diabetic: < 6.0 % Goal: < 7.0 %Additional Action Suggested: > 8.0 %Note: Hemoglobin A1c results are invalid for patients with abnormal amounts of HbF. Blood transfusions may impact the HbA1c concentration in the patient sample. Estimated Average Glucose 105 mg/dL [facility] Comment:eAG = Estimated ave rage glucose which is %A1C expressed asaverage glucose, using the formula of the O7R-IryjmbgMdtfaue Glucose study (ADAG), Diabetes Care, Vol.31,#8,Sep. 2007 Blood Venous blood specimen / Unknown 11/02/2024 12:38 PM EDT 11/02/2024 12:38 PM EDT Lissette Marte MD LAB BLOOD ORDERABLES Final Resul t Performing Organization Address City/[facility]/ZIP Co de Phone Number [facility] [address] [place] [phone] * Hepatic Function Panel (11/02/2024 12:38 PM EDT) Bilirubin, Direct 0.1 0.0 - 0.5 mg/dL [facility] Blood Venous blood specimen / Unknown 11/02/2024 12:38 PM EDT 11/02/2024 12:38 PM EDT Lissette Marte MD LAB BLOOD ORDERABLES Final Resul t Performing Organization Address [facility] Co de Phone Number [facility] [address] [place] [phone] * Lipid Panel, Standard (11/02/2024 12:38 PM EDT) Triglycerides 51 <150 mg/dL [facility] Comment:Desirable Triglyceri de: less than 150 mg/dLBorderline High Triglyceride 150-199 mg/dLHigh Triglyceride: 200-499 mg/dLVery High Triglyceride: greater than or equal to 5OO mg/dL Cholesterol 160 <200 mg/dL [facility] Comment:Desirable Cholestero l: less than 200 mg/dLBorderline High Cholesterol: 200-239 mg/dLHigh Cholesterol: greater than 239 mg/dL LDL Cholesterol Calculated 85 <100 mg/dL [facility] Comment:Desirable LDL: less than 100 mg/dLNear Optimal/Above Optimal LDL: 110- 129 mg/dLBorderline High LDL: 130-159 mg/dLHigh LDL: 160-189 mg/dLVery High LDL: greater than or equal to 190 mg/dL HDL Cholesterol 65 >40 mg/dL [facility] Comment:Desirable HDL: great er than 40 mg/dL Note: This HDL assay may give artificially low results in patients with liver disease. Blood Venous blood specimen / Unknown 11/02/2024 12:38 PM EDT 11/02/2024 12:38 PM EDT us Lissette Marte MD LAB BLOOD ORDERABLES Final Resul t [facility] [address] [place] [phone] [phone] * (ABNORMAL) Comprehensive Metabolic Panel (11/02/2024 12:38 PM EDT) Sodium 143 135 - 145 mmol/L [facility] Potassium 4.3 3.3 - 5.1 mmol/L [facility] Chloride 110(H) 96 - 108 mmol/L [facility] Carbon Dioxide 23 22 - 29 mmol/L [facility] Anion Gap 14 12 - 20 [facility] Urea Nitrogen (BUN) 11 9 - 16 mg/dL [facility] Creatinine, Serum 0.80 0.5 - 1.4 mg/dL [facility] Estimated Glomerular Filt Rate >60 [facility] Comment:Chronic Kidney Disea se: Estimated GFR < 60 mL/min/1.32d6Elnasi Kidney Disease: Estimated GFR < 15 mL/min/1.73m2 Glucose 73 60 - 115 mg/dL [facility] Calcium 9.1 8.4 - 10.2 mg/dL [facility] Bilirubin, Total 0.3 0.0 - 1.0 mg/dL [facility] Aspartate Amino Transferase 146(H) 5 - 31 U/L [facility] Alanine Aminotransferase 227(H) 0 - 31 U/L [facility] Total Protein 7.3 6.5 - 8.0 g/dL [facility] Albumin Level 4.1 3.5 - 5.0 g/dL [facility] Alkaline Phosphatase 308(H) 39 - 117 U/L [facility] 11/02/2024 12:3 8 PM EDT 11/02/2024 12:38 PM EDT us Generic External Data Provider LAB BLOOD ORDERAB LES Final Result [facility] [address] [place] [phone] [phone] * POCT TRISTAN-14 Urine Drug Screen [...] 11:08 AM EDT Internal Pass Control Lot# [id number] Exp: 12-25-25 Lissette Marte MD POINT OF CARE TEST ENTER/EDIT OR DERABLES Final Result * BI Mammogram Screening Tomosynthesis Bilateral (03/20/2024 4:08 PM EST) Anatomical Region Laterality Modality Breast Bilateral Mammography 03/20/2024 4:08 PM EST Narrative 03/31/2024 10:40 AM EST [facility] [address] [place] [address] Mammography Report Signed Patient: Catarina Haro MR#: [id number] : 1965 Acct:[id number] Age/Sex: 59 / F ADM Date: 03/20/24 Loc: HO.MAMMO Attending Dr: Lissette Marte MD Ordering Physician: Lissette Marte MD Results: 1Negati ve Date of Service: 03/20/24 Follow Up: 1 Year From Orig inal Mammogram Procedure(s): MM tomosynthesis screening BI Accession Number(s): [id number] cc: Lissette Marte MD EXAMINATION: MM SCREENING [...] by: Margaret Thomas DO 03/31/2024 10:37 AM [facility] Dictated By: Margaret Thomas DO Signed By: <Electronically signed by Margaret Thomas DO in OV> 03/31/24 1037 DD/ 1608 TD/TT: 03/20/24 1624 Technology Instructor: Procedure Note Donotuseinterpreter, Image - 03/31/2024 [facility] [address] [place], [place] [address] Mammography Report Signed Patient: Darline Haro#: [id number] : 1965Acct:[id number] Age/Sex: 59 / FADM Date: 03/20/24 Loc: [facility] Attending Dr: Lissette Marte MD Ordering Physician: Lissette Marte MDResults: 1Negati ve Date of Service: 03/20/24Follow Up: 1 Year From Orig inal Mammogram Procedure(s): MM tomosynthesis screening BI Accession Number(s): [id number] cc: Lissette Marte MD EXAMINATION: MM SCREENING [...] 03/31/24 1037 DD/ 1608 TD/TT: 03/20/24 1624 Technology Instructor: Lissette Marte MD IMG BI PROCEDURES Final Result * Hm Colonoscopy (05/30/2023) Pathologist [facility] Colonoscopy Normal Normal Narrative Miri Manzano - 05/30/2023 Recommended 5 years . See see external hospital admission note with matching date us Historical Provider HEALTH MAINTENANCE Final Result * HIV Ab/Ag ([facility]) (02/27/2022 4:44 PM EST) Pathologist [facility] HIV AB/AG Nonreactive Nonreactive [facility] Comment:HIV-1 p24 Ag and/or HIV-1/HIV-2 Ab not detected.A test result that is nonreactive does not exclude thepossibility of exposure to or infection with HIV-1 and/orHIV-2. Nonreactive results in this assay for individualswith prior exposure to HIV-1 and/or HIV-2 may be due toantigen and antibody levels that are below the limit ofdetection of this assay.The [employer] Discharge Door Operator HIV Ag/Ab Combo assay result andsupplemental assay results should be interpreted inconjunction with the patient's clinical presentation,history and other laboratory results. If the results areinconsistent with clinical evidence, additional testing issuggested to confirm the result. 02/27/2022 4:44 PM EST 02/27/2022 4:44 PM EST [facility] External Provider LAB BLO OD ORDERABLES Final Result Performing Organization Address [facility] Co de Phone Number [facility] [address] [place] [phone] * Hepatitis Panel, General (02/27/2022 4:44 PM EST) Hepatitis A IgM Nonreactive Nonreactive [facility] Comment:IgM antibodies to FORDE V not detected; does not exclude earlyacute or recovered HAV infection. ~Hepatitis B Surface Antibody NONREACTIVE Nonreactive [facility] Comment:Nonreactive: < 8.00 mIU/mL Hepatitis B Core Antibody Nonreactive Nonreactive [facility] Hepatitis C Antibody Nonreactive Nonreactive [facility] Comment:Antibodies to HCV no t detected; does not exclude early acuteHCV infection. Hepatitis B Surface Ag Negative Negative [facility] 02/27/2022 4:44 PM EST 02/27/2022 4:44 PM EST [facility] External Provider LAB BLO OD ORDERABLES Final Result Performing Organization Address [facility] Co de Phone Number [facility] [address] [place] [phone] * THINPREP TIS PAP AND HPV mRNA E6/E7 WITH REFLEX TO HPV 16,18/45 (03/14/2021 1:00 PM EST) Clinical Information: None given [facility] COMMENT SEE COMMENT [facility]OUND[facility] ON [...] has been evaluated with computer assisted technology. [facility] Thread Pulling Machine Attendant: SEE COMMENT [facility] Comment: DMM, CT(ASCP) CT screening location: [place] [address] HPV nRNA E6/E7 Not Detected Not Detected [facility] Comment: Methodology: [employer]-Mediated Amplification This assay detects E6/E7 viral messenger RNA (mRNA) from 14 high-risk HPV types (16,18,31,33,35,39,45,51,52,56,58,59,66,68). The analytical performance characteristics of this assay have been determined by [employer]. The modifications have not been cleared or approved by the FDA. This assay has been validated pursuant to the CLIA regulations and is used for clinical purposes. For additional information, please refer to http://education.BloggersBase/faq/XSK720v0 (This link if provided for information/ educational purposes only.) Interpretation/Re sult: Negative for intraepithelial lesion or malignancy. [facility] LMP: 6M [facility] Prev. BX: NONE GIVEN [facility] Prev. PAP: NIL 09/2017 [facility] SOURCE: None given [facility] Statement Of Adequacy: SEE COMMENT [facility] Comment: Satisfactory for evaluation. Endocervical/transformation zone component absent. 03/14/2021 1:00 PM EST us Suzi Felton CNM LAB PATHOLOGY ORDERABLES Final Result [facility] [address] from Last 3 Months or Most Recently Relevant to Health Maintenance Insurance [facility] , [address] [place] [address] DENTAL - [facility] Care Teams Patient Relations Liaison Relationship Specialty Start Date End Date Lissette Marte MD [address] [place] [phone] PCP - General Family Medicine 03/12/19
--- OUTSIDE RECORDS SUMMARY | 2024-11-24 15:01 | XMS_ITS | Encounter Summary ---
Author Organization [employer] Address [address] [facility] 7t [place] [address] Care Team Providers Care Shear Grinder Operator Name Role Phone Lissette Marte MD Primary Care Provider [phone] Encounter Details Date Type Department Care Team (Latest Contact Info) Description 01/10/2022 Abstract [facility] CONVERSIONS Dental, Provider, DDS Social History Tobacco [...] Info) Description 12/14/2024 2:00 PM EDT Telemedicine [facility] [address] [place] [address] Nahed Estrada, KATHY [address] [place] [address] documented as of this encounter Visit Diagnoses Not on filedocumented in this encounter Care Teams Shear Grinder Operator Relationship Specialty Start Date End Date Lissette Marte MD [address] [place] [address] PCP - General Family Medicine 03/12/19 documented as of this encounter
--- OUTSIDE RECORDS SUMMARY | 2024-11-24 15:01 | XMS_ITS | Encounter Summary ---
Author Organization [employer] Address [address] [facility] [address] [place] [address] Care Team Providers Care Paint Stripper Name Role Phone Lissette Marte MD Primary Care Provider [phone] Reason for Visit * Reason Onset Date Comments Med Refill 07/27/2024 Encounter Details Date Type Department Care Team (Late st Contact Info) Description 07/27/2024 Telephone [facility] MEDICINE [address] [place] [address] Lissette Marte MD [address] [place] [address] Med Refill Social History Tobacco Use Types [...] 5-325 MG tablet To be sent to: [id number] [place], [place] - [address] [facility] documented in this encounter Plan of Treatment Upcoming Encounters Date Type Department Care Team ([facility] st Contact Info) Description 12/14/2024 2:00 PM EDT Telemedicine [facility] [address] [place] [address] Nahed Estrada RN [address] [place] [address] documented as of this encounter Visit Diagnoses Not on filedocumented in this encounter Care Teams Paint Stripper Relationship Specialty Start Date End Date Lissette Marte MD [address] [place] [phone] PCP - General Family Medicine 03/12/19 documented as of this encounter
--- OUTSIDE RECORDS SUMMARY | 2024-11-24 15:01 | XMS_ITS | Encounter Summary ---
Author Organization [employer] Address [address] [facility] 7t [place] [address] Care Team Providers Care Computer Support Technician Name Role Phone Lissette Marte MD Primary Care Provider Reason for Visit * Reason Onset Date Comments status 02/12/2022 Referral 02/13/2022 Encounter Details Date Type Department Care Team ([facility] st Contact Info) Description 02/12/[address] [facility] MEDICINE [address] [place] [address] Lissette Marte MD [address] [place] [address] status ; Referral Social History Tobacco Use [...] calling in regards to referral for Rheumatology. Personal Insurance Advisor advised of message below, patient states she called the office and they stated they still don't have the correct notes. They advised patient they need the notes from the last visit from 01/26/22. * Telephone Encounter - Steve Valles - 02/12/2022 10:06 AM EST Tc from pt requesting status on referral for Rheumatology Please contact pt at [phone] documented in this encounter Plan of Treatment Upcoming Encounters Date Type Department Care Team (Late st Contact Info) Description 12/14/2024 2:00 PM EDT Telemedicine [facility] MED & PEDS [address] [place] [address] Nahed Estrada, KATHY [address] [place] [address] documented as of this encounter Visit Diagnoses Not on filedocumented in this encounter Care Teams Computer Support Technician Relationship Specialty Start Date End Date Lissette Marte MD [address] [place] [phone] PCP - General Family Medicine 03/12/19 documented as of this encounter
== END 2024-11-24 14:44 | disposition home or self-care (01) ==
LOC: HO.RHES 13:43
PROVIDERS: PCP Student in an Organized Health Care Education/Training Program; Visit Provider Student in an Organized Health Care Education/Training Program
DX: M05.79 Rheumatoid arthritis with rheumatoid factor of multiple sites without organ or systems involvement (principal); M17.0 Bilateral primary osteoarthritis of knee; M75.81 Other shoulder lesions, right shoulder; M75.82 Other shoulder lesions, left shoulder; R74.01 Elevation of levels of liver transaminase levels; Z79.899 Other long term (current) drug therapy
CPT/HCPCS: 20610; 99214

== ENCOUNTER 2024-11-24 13:42 | Outpatient (REF) | payer OTHER, SELFPAY ==
[2024-11-25 05:39] LABS: HBS Num1 0.00 mIU/mL (0-7.99); HBc Num1 0.06 S/CO (0.00-0.79); HBsAGNum1 0.27 S/CO (0.00-0.99); Hepatitis B Surface Antigen Negative (Negative); ~HepC Num1 0.08 S/CO (0.00-0.79); ~Hepatitis B Surface Antibody NONREACTIVE (Nonreactive); ~Hepatitis C Antibody Nonreactive (Nonreactive)
[2024-11-25 13:55] LABS: Alanine Aminotransferase 17 U/L (0-31); Albumin Level 4.1 g/dL (3.5-5.0); Alkaline Phosphatase 140 U/L (39-117); Anion Gap 13 (12-20); Aspartate Amino Transferase 26 U/L (5-31); Blood Urea Nitrogen 14 mg/dL (9-16); Calcium 9.3 mg/dL (8.4-10.2); Carbon Dioxide 25 mmol/L (22-29); Chloride 109 mmol/L (96-108); Estimated Glomerular Filt Rate > 60; Potassium 4.2 mmol/L (3.3-5.1); Sodium 143 mmol/L (135-145); Total Protein 7.0 g/dL (6.5-8.0)
[2024-12-03 16:08] LABS: Liver Cytosol (LC-1) Auto Ab Negative (Negative)
== END 2024-11-24 13:43 | disposition home or self-care (01) ==
LOC: HO.HKASLDS 13:42
PROVIDERS: PCP Student in an Organized Health Care Education/Training Program; Visit Provider Student in an Organized Health Care Education/Training Program
DX: M17.0 Bilateral primary osteoarthritis of knee (principal); K75.4 Autoimmune hepatitis; M05.79 Rheumatoid arthritis with rheumatoid factor of multiple sites without organ or systems involvement; M75.81 Other shoulder lesions, right shoulder; M75.82 Other shoulder lesions, left shoulder; R74.01 Elevation of levels of liver transaminase levels; Z79.899 Other long term (current) drug therapy
CPT/HCPCS: 20610; 36415; 80053; 86015; 86376; 86704; 86706; 86803; 87340; J7326